=== PATIENT | female | born 1965 | race Caucasian/White ===

== ENCOUNTER 2017-01-07 09:43 | Inpatient (IN) | payer OTHER ==
[~2017-01-07] VITALS: Ht 172.7 cm; Wt 72.6 kg
[~2017-01-07 09:43] MED LIST: AUGMENTIN 875 M1 TAB PO; CARBAMAZEPINE200 M5 PO; DIVALPROEX SOD500 M3 PO; GABAPENTIN100 MG PO; PERCOCET 325 MG1 TA2 PO; Progesterone PO; TEGRETOL XR200 M1 PO
[2017-01-07 10:22] LABS: ABSOLUTE BASOPHIL COUNT 0 /CUMM (0.0-0.2); ABSOLUTE EOSINOPHIL COUNT 0 /CUMM (0.0-0.7); ABSOLUTE GRANULOCYTE CT 3.3 /CUMM (1.4-6.5); ABSOLUTE LYMPH COUNT 3.2 /CUMM (1.2-3.4); ABSOLUTE MONOCYTE COUNT 0.9 /CUMM (0.10-0.60); BASOPHIL % 0.6 % (0.0-2.0); EOSINOPHIL % 0 % (0-5); GRANULOCYTE % 44.2 % (42.2-75.2); MEAN CORPUSCULAR HGB 32.4 PG (27.0-31.0); MEAN CORPUSCULAR HGB CONC 33.5 G/DL (33.0-37.0); MEAN CORPUSCULAR VOLUME 96.5 FL (81.0-99.0); MEAN PLATELET VOLUME 7.2 FL (7.4-10.4); PLATELET COUNT 224 /CUMM (130-400); RBC DISTRIBUTION WIDTH 13.4 % (11.5-14.5); RED BLOOD CELL CT 4.56 /CUMM (4.20-5.40); WHITE BLOOD CELL COUNT 7.5 /CUMM (4.8-10.8)
--- NOTE | 2017-01-07 11:01 | RADIOLOGY REPORT ---
EXAMINATION: XR CHEST CLINICAL INFORMATION: Cough COMPARISON: None TECHNIQUE: 2 views of the chest were obtained. FINDINGS: The lungs are clear with no focal consolidation. No evidence of pneumothorax, pulmonary edema, or pleural effusions. The cardiomediastinal silhouette is unremarkable. No acute osseous findings. IMPRESSION: No acute cardiopulmonary findings.
--- NOTE | 2017-01-07 11:13 | ED AMS/SEIZURE/WEAK/DIZZY ---
History of Present Illness General Chief Complaint: Nausea, Vomiting, Diarrhea Stated Complaint: WEAKNESS/VOMITING Source: patient, family, old records Exam Limitations: no limitations Vital Signs & Intake/Output Vital Signs & Intake/Output Vital Signs Date Time Temp Pulse Resp B/P Pulse O2 O2 Flow FiO2 Ox Delivery Rate 01/07 1752 96.7 72 20 111/73 98 Room Air 01/07 1330 145/73 01/07 1012 97.6 100 18 113/83 96 Room Air Allergies Coded Allergies: amoxicillin (Intermediate, GI DISTRESS 01/07/17) Triage Note: 51 YEAR OLD FEMALE HISTORY OF EPILEPSY STATES THAT SHE HAS BEEN SICK FOR THE PAST WEEK, COMPLAINS OF ACHEY ALL OVER, COUGH THAT MAKES HER VOMIT, PT VOMITTED BILE AT TRIAGE , ALSO STATES THAT SHE WAS DIAGNOSED WITH UTI LAST WEEK STARTED ON ABT , BUT HAS NOT TAKING IT THE PAST FEW DAYS DUE TO SHE HAS BEEN VOMITTING, DENIES URINARY SYMPTOMS. PT STATES THAT SHE THINKS SHE MIGHT HAVE PNA. AFEBRILE AT THIS TIME Triage Nurses Notes Reviewed? yes Onset: Abrupt Duration: week(s): (1), constant, getting worse Timing: recent history Injury Environment: home Severity: moderate, severe Severity Numbers: 10 No Modifying Factors: none Associated Symptoms: n/v HPI: 51-year-old female history of epilepsy on Depakote presents to emergency room complaining of progressively worsening nausea vomiting and room spinning dizziness that has been present for the past 1 week however worse over the past 1 day associated with generalized malaise lightheadedness and poor appetite. She also is complaining of a nonproductive cough since last night. No shortness of breath chest pain. No history of vertigo in the past. She states in the middle night she got to go the bathroom and fell secondary to her dizziness sustaining laceration to the right side of her head. There was no loss of consciousness. She was able to get up herself. Patient denies any alcohol or drug use. No chest pain palpitations or lightheadedness. She denies any tinnitus or hearing loss no headache at this time.. The dizziness is worse with head movement and better at rest (HORACIO NIX) Reconcile Medications Carbamazepine (Tegretol XR) 200 MG TAB.ER.12H 2 TAB PO DAILY EPILEPSY ( Reported) Carbamazepine (Carbamazepine XR) 200 MG TAB.ER.12H 3 TAB PO QPM EPILEPSY ( Reported) Divalproex Sodium (Divalproex Sodium ER) 500 MG TAB.ER.24H 1 TAB PO BID EPILEPSY (Reported) [Progesterone] 0.5 TAB PO TID UNKNOWN (Reported) (ALLAN KAPLAN,GARY Wang) Past History Travel History Traveled to [place] past 21 day No Medical History Any Pertinent Medical History? 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 No (HORACIO NIX) Review of Systems Review of Systems Constitutional: Reports: see HPI. All Other Systems: Reviewed and Negative Comments Review of systems: See HPI, All other systems negative. Constitutional, no chills no fever, no malaise HEENT: No visual changes no sore throat no congestion Cardiovascular: No chest pain , no palpitation Skin, no rashes, no change in skin Respiratory: No dyspnea no cough no sputum GI: nausea vomiting, no diarrhea, no bloating/constipation : No dysuria No hematuria, no frequency, no discharge Muscle skeletal: No joint pain, no joint swelling, no back pain, no neck pain, Neurologic: No numbness no confusion, headache Psych: No stress Heme/endocrine: No bruising no bleeding Immunology: No lymphadenopathy (HORACIO NIX) Physical Exam Physical Exam General Appearance: well developed/nourished, alert, awake, mild distress Comments: Well-developed well-nourished person in no acute distress HEENT: Normal EENT exam; PERRL, EOMI, no nystagmus. There is a 1 cm laceration noted over the right lateral eyebrow, there is no active bleeding nontender no surrounding ecchymosis or facial swelling no raccoon eyes. moist mucous membranes. Neck: Supple, normal range of motion Back: Nontender, no CVA tenderness. Full range of motion Cardiovascular: Regular rate and rhythms no murmurs rubs Respiratory: Chest nontender.There were no bony deformities, no asymmetry. No respiratory distress. Patient speaking in full complete sentences. Breath sounds clear to auscultation bilaterally: NO W/R/R Abdomen: Soft, nontender nondistended, no appreciable organomegaly. Normal bowel sounds. No rebound/guarding, Extremity: No edema, full range of motion of extremities Neuro: Alert oriented x3, motor sensory normal, cranial nerves II through XII grossly intact. There were no obvious focal neurologic abnormalities. Skin: No appreciable rash on exposed skin, skin is warm and dry. Psych: Mood and affect is normal, memory and judgment is normal. Core Measures ACS in differential dx? No CVA/TIA Diagnosis: No Severe Sepsis Present: No Septic Shock Present: No (SANDRA HENRIQUEZ,HORACIO) Progress Differential Diagnosis: arrythmia, alcohol intoxication, anemia, benign positional vertigo, CVA/stroke, dehydration, drug intoxication, encephalitis, electrolyte imbalance, GI bleed, hypoglycemia, intracranial Hem., intracranial mass/tumor, labrynthitis, pneumonia, seizure disorder, subarachnoid Hem., UTI/ pyelo Plan of Care: Orders Procedure Date/time Status CBC WITHOUT DIFFERENTIAL 01/08 0600 Active BASIC ELECTROLYTES PLUS BUN&CR 01/08 0600 Active Lab Add-on Test 01/07 1913 Active CULTURE,URINE 01/07 1544 Active URINE DRUGS OF ABUSE 01/07 1544 Complete URINE OSMOLALITY 01/07 1544 Complete URINE LYTES, SPOT 01/07 1544 Complete Misc Message 01/07 1500 Active ED Holding Orders 01/07 1500 Active Vital Signs 01/07 1500 Active Pathway - chart 01/07 1459 Active Pathway - chart 01/07 1455 Active House Staff 01/07 1455 Active Patient Data 01/07 1455 Active Code Status 01/07 1455 Active Admit to inpatient 01/07 1421 Active Patient Data 01/07 1337 Active Intake & Output 01/07 1130 Active EKG 01/07 1122 Active Add-on Test (ER Only) 01/07 1114 Active RAPID VIRAL INFLUENZA A 01/07 1023 Complete TEGRETOL LEVEL 01/07 1016 Active PHOSPHORUS 01/07 1016 Active MAGNESIUM 01/07 1016 Active DEPAKOTE LEVEL 01/07 1016 Active URINALYSIS 01/07 1008 Complete COMPREHENSIVE METABOLIC PANEL 01/07 1008 Active CBC WITHOUT DIFFERENTIAL 01/07 1008 Complete PT Evaluate & Treat 01/07 UNK Active Lab Add-on Test 01/07 UNK Active VTE Mechanical Prophylaxis 01/07 UNK Active MISTAKE 01/07 UNK Active Seizure Precautions 01/07 UNK Active Current Medications Sig/Mariano Start time Last Medication Dose Stop Time Status Admin Carbamazepine 400 MG DAILY 01/08 1000 AC (Tegretol XR 200 MG) Carbamazepine 600 MG 01/07 AC (Tegretol XR 200 MG) Divalproex Sodium 500 MG BID 01/07 2200 AC (Depakote ER) Non-Formulary 0 SEE ADMIN CRITERIA 01/07 190 UNVr Medication (NON FORMULARY) Lorazepam 0.25 MG Q4P PRN 01/07 1745 AC (Ativan) Acetaminophen 650 MG Q6P PRN 01/07 1500 AC (Tylenol) Oxycodone/ 1 TAB Q6P PRN 01/07 1500 AC Acetaminophen (Percocet) Oxycodone/ 2 TAB Q6P PRN 01/07 1500 AC Acetaminophen (Percocet) Laboratory Tests 01/07/17 1706: Urinalysis MOD H, Urine Color ORANG H, Urine Clarity CLEAR, Urine pH 5.5, Ur Specific Malone >= 1.030, Urine Protein 30 H, Urine Ketones >=80, Urine Nitrite NEG, Urine Bilirubin POS@ICTO H, Urine Urobilinogen 1.0, Ur Leukocyte Esterase TRACE H, Ur Microscopic SEDIMENT EXAMINED, Urine WBC 3-5 H, Ur Epithelial Cells FEW, Hyaline Casts 10-15 H, Granular Casts 1-3 H, Urine Mucus MANY H, Urine Hemoglobin NEG, Urine Glucose NEG 01/07/17 1706: Urine Opiates Screen 186.00, Methadone Screen < 40, Barbiturate Screen < 60, Ur Phencyclidine Scrn < 6.00, Amphetamines Screen < 100, U Benzodiazepines Scrn 120 , Urine Cocaine Screen < 50, Urine Cannabis Screen < 5.00, Urine Osmolality 916, Ur Random Creatinine 135.9, Ur Random Sodium 141 H, Ur Random Potassium 58.8, Fraction Sodium Excret 0.7 01/07/17 1016: Anion Gap 20 H, Estimated GFR > 60, BUN/Creatinine Ratio 17.8, Glucose 101 H, Calcium 9.5, Phosphorus Pending, Magnesium Pending, Total Bilirubin 0.9, AST 28, ALT 28, Alkaline Phosphatase 51, Total Protein 8.1, Albumin 4.8, Globulin 3.3, Albumin/Globulin Ratio 1.5, CBC w Diff NO MAN DIFF REQ, RBC 4.56, MCV 96.5, MCH 32.4 H, RDW 13.4, MPV 7.2 L, Gran % 44.2, Lymphocytes % 42.8, Monocytes % 12.4 H, Eosinophils % 0, Basophils % 0.6, Absolute Granulocytes 3.3, Absolute Lymphocytes 3.2, Absolute Monocytes 0.9 H, Absolute Eosinophils 0, Absolute Basophils 0, PUBS MCHC 33.5, Valproic Acid 99.8, Carbamazepine 11.8 Microbiology 01/07 1544 URINE ROUT: Urine Culture - ORD 01/07 1027 NASOPHARYN: Influenza Virus A & B Rapid Smear - COMP Labs ordered old records reviewed CAT scan x-rays ordered from triage, valium 2mg iv, zofran 8mg iv ordere dpt actively vomiting The wound was anesthetized with lidocaine 1% sutures 3 administered by me. I discussed with patient and her family at length all of her lab results CAT scan and x-ray findings.. Patient stating dizziness is still present nausea slightly improved case d/w dr gutierrez agrees iwth plan case d/w dr wright will admit (SANDRA HENRIQUEZ,HORACIO) Diagnostic Imaging: Viewed by Me: Radiology Read, CT Scan. Discussed w/RAD: Radiology Read, CT Scan. Radiology Impression: PATIENT: MAYRA PRADHAN PRESENT AGE: 51 PATIENT ACCOUNT NO: [id number] : 63 LOCATION: [facility] ORDERING PHYSICIAN: HORACIO HENRIQUEZ SERVICE DATE: 01/07/17 EXAM TYPE: RAD - XRY- HAND, RIGHT EXAMINATION: XR HAND, RIGHT CLINICAL INFORMATION: Pain after fall. Evaluate for fracture. COMPARISON: None TECHNIQUE: Right hand, 3 views. FINDINGS : Bones, joints and soft tissues of the hand and wrist are unremarkable. No acute fracture, subluxation or focal soft tissue swelling. Patient's pain is indicated to be over the region of the thumb metacarpal. There is no evidence of metacarpal fracture. IMPRESSION: No acute findings within the right hand or wrist. DICTATED BY: LOIDA RICHARDS MD DATE/TIME DICTATED:01/07/171145 BEAD FORMING MACHINE SET UP OPERATOR:ANILA DATE/TIME TRANSCRIBED:01/07/171145 CONFIDENTIAL, DO NOT COPY WITHOUT APPROPRIATE AUTHORIZATION. <Electronically signed in Other Vendor System> SIGNED BY: LOIDA RICHARDS MD 01/07/17 1151, PATIENT: MAYRA PRADHAN PRESENT AGE: 51 PATIENT ACCOUNT NO: [id number] : 63 LOCATION: [facility] ORDERING PHYSICIAN: GARY HUERTAS DO SERVICE DATE: 01/07/17 EXAM TYPE: CAT - CT HEAD WO IV CONTRAST EXAMINATION: CT HEAD WITHOUT CONTRAST CLINICAL INFORMATION: Head head, dizzy COMPARISON: None TECHNIQUE: Contiguous axial imaging was performed from the skull base to vertex without intravenous administration of contrast. DLP: 529.16 mGy-cm FINDINGS: There is no evidence of acute intracranial hemorrhage or territorial infarction. No abnormal mass effect or midline shift is seen. Boyce to white matter differentiation is well preserved. No extra-axial fluid collections are identified. The ventricles are normal in size. There is no abnormal attenuation within the brain parenchyma. The osseous structures and soft tissues are normal. There is a fluid level in the visualized right maxillary sinus. Remaining visualized paranasal sinuses are well aerated. The mastoid air cells are well- aerated. IMPRESSION: No acute intracranial pathology. DICTATED BY: ANYAN MARLEY MD DATE/TIME DICTATED:01/07/171105 BEAD FORMING MACHINE SET UP OPERATOR:SHINE DATE/TIME TRANSCRIBED:01/07/171105 CONFIDENTIAL, DO NOT COPY WITHOUT APPROPRIATE AUTHORIZATION. <Electronically signed in Other Vendor System> SIGNED BY: NAYAN MARLEY MD 01/07/17 1115, PATIENT: MAYRA PRADHAN PRESENT AGE: 51 PATIENT ACCOUNT NO: [id number] : 63 LOCATION: [facility] ORDERING PHYSICIAN: GARY HUERTAS DO SERVICE DATE: 01/07/17 EXAM TYPE: RAD - XRY-CHEST XRAY, PA AND LATERAL EXAMINATION: XR CHEST CLINICAL INFORMATION: Cough COMPARISON: None TECHNIQUE: 2 views of the chest were obtained. FINDINGS: The lungs are clear with no focal consolidation. No evidence of pneumothorax, pulmonary edema, or pleural effusions. The cardiomediastinal silhouette is unremarkable. No acute osseous findings. IMPRESSION: No acute cardiopulmonary findings. DICTATED BY: NAYAN MARLEY MD DATE/TIME DICTATED:1053 BEAD FORMING MACHINE SET UP OPERATOR:RAD.SHINE DATE/TIME TRANSCRIBED:02/23/17 / 1054 CONFIDENTIAL, DO NOT COPY WITHOUT APPROPRIATE AUTHORIZATION. <Electronically signed in Other Vendor System> SIGNED BY: NAYAN MARLEY MD 01/07/17 1101 Initial ED EKG: NSR AT 80, NORMAL AXIS, NO ACUTE ST SEG CHANGES Rhythm Strip: normal sinus rhythm (HORACIO NIX) Comments: After discussion with case management patient has been admitted to observation. (ALLAN KAPLAN,GARY Wang) Departure Departure Time of Disposition: 1336 Disposition: STILL A PATIENT Condition: Stable Clinical Impression Primary Impression: Vertigo Secondary Impressions: Minor head injury without loss of consciousness, Nausea & vomiting, Scalp laceration Referrals: FELICIA KAPLAN,JANKI Morrow (PCP/Family) Departure Forms: Customer Survey General Discharge Information Admission Note Spoke With: MELCHOR WRIGHT M.D Documentation of Exam: Documentation of any treatments & extenuating circumstances including Concerns Regarding Discharge (functional status, medication knowledge or non-compliance, living conditions, etc.) that warrant an admission rather than observation: Patient has received multiple doses of nausea medications, IV benzos for improvement of dizziness nausea vomiting with only minimal improvement. Premature discharge medically harmful given she has fallen already sustained head injury she is a fall risk at home secondary to her symptoms premature discharge would BE medically harmful. (HORACIO NIX) PA/STRIPPING SHOVEL OPERATOR Co-Sign Statement Statement: ED Attending supervision documentation- [X] I saw and evaluated the patient. I have also reviewed all the pertinent lab results and diagnostic results. I agree with the findings and the plan of care as documented in the PA's/STRIPPING SHOVEL OPERATOR's documentation. [] I have reviewed the ED Record and agree with the PA's/STRIPPING SHOVEL OPERATOR's documentation. [] Additions or exceptions (if any) to the PAs/STRIPPING SHOVEL OPERATOR's note and plan are summarized below: [] (ALLAN KAPLAN,GARY Wang) Procedures Laceration/Wound Repair Laceration/Wound Repair: Wound Location: face Wound's Depth, Shape: linear, superficial Wound Length (cm): 1.5 Wound Explored: clean, no foreign body removed, irrigated extensively Irrigated w/ Saline (ccs): 200 Betadine Prep? Yes Anesthesia: 1% lidocaine Volume Anesthetic (ccs): 5 Wound Repaired With: sutures Suture Size/Type: 4:0 Number of Sutures: 3 Layer Closure? No Sterile Dressing Applied: Yes (HORACIO NIX)
--- NOTE | 2017-01-07 11:51 | RADIOLOGY REPORT ---
EXAMINATION: XR HAND, RIGHT CLINICAL INFORMATION: Pain after fall. Evaluate for fracture. COMPARISON: None TECHNIQUE: Right hand, 3 views. FINDINGS: Bones, joints and soft tissues of the hand and wrist are unremarkable. No acute fracture, subluxation or focal soft tissue swelling. Patient's pain is indicated to be over the region of the thumb metacarpal. There is no evidence of metacarpal fracture. IMPRESSION: No acute findings within the right hand or wrist.
--- NOTE | 2017-01-07 14:38 | History & Physical ---
THALIA KAPLAN,[facility] 01/07/17 1437: General Information and HPI MD Statement: I have seen and personally examined MAYRA HAMLIN and documented this H&P. The patient is a 51 year old F who presented with a patient stated chief complaint of gait imbalance Source of Information: patient Exam Limitations: poor historian History of Present Illness: This a 51-year-old lady with a past medical history of epilepsy (since ) with multiple episodes of seizures every year , last reported episode 2-3 months ago, and currently managed on carbamezipne and depakote, presents with complaints of gait instability and a fall. Patient appears to be a poor historian and had just received diazepam 2 mg injection at the ED prior to the interview. Patient reports that her coworkers noticed starting 2 weeks ago that something was wrong with her walk, she describes her gait imbalance/stability as like the one of a drunkard. She reports that her gait instability symptoms have been persistent for 2 weeks and reports that last night while attempting to walk to her bathroom after getting up from her bed, she experienced a fall. Patient reports hitting her face on the ground, but denied any loss of consciousness. She states that her sister heard the thud and went over and helped her. She denied any neurological deficit including facial drooping, speech impairment, she denied any postictal confusion, any tremors, urinary or bowel incontinence, tongue biting, palpitations, diaphoresis, or shortness of breath. Regarding complaints of gait instability she denies any vertigo, or tinnitus,. Patient sustained a laceration above her right eye which required sutures at the ED today. Of note, she reports having an episode of UTI last week which was evaluated by her PCP and was prescribed Bactrim but never finished the full course. Also she endorses symptoms of nausea and vomiting. 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 Allergies/Medications Allergies: Coded Allergies: amoxicillin (Intermediate, GI DISTRESS 01/07/17) Home Med list Carbamazapine (Carbatrol) 200 MG CPMP.12HR 2 TAB PO BID Seizures Carbamazepine (Tegretol XR) 200 MG TAB.ER.12H 2 TAB PO DAILY EPILEPSY ( Reported) Carbamazepine (Carbamazepine XR) 200 MG TAB.ER.12H 3 TAB PO QPM EPILEPSY ( Reported) Divalproex Sodium (Divalproex Sodium ER) 500 MG TAB.ER.24H 1 TAB PO BID EPILEPSY (Reported) Divalproex Sodium (Depakote ER) 250 MG TAB.ER.24H 1 TAB PO 1000 Seizures Divalproex Sodium 500 MG TABLET.DR 1 TAB PO 2200 Seizure [Progesterone] 0.5 TAB PO TID UNKNOWN (Reported) Past History Travel History Traveled to [place] past 21 day No Medical History Neurological: EPILEPSY EENT: NONE Cardiovascular: NONE Respiratory: NONE Gastrointestinal: NONE Hepatic: NONE Renal: NONE Musculoskeletal: NONE Psychiatric: NONE Endocrine: NONE Blood Disorders: NONE Cancer(s): NONE 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 EENTM: Denies: blurred vision, double vision. Cardiovascular: Denies: chest pain, edema, orthopena, palpitations. Respiratory: Denies: cough, short of breath, wheezing. GI: Reports: nausea, vomiting. Denies: constipation, diarrhea, distention. Genitourinary: Denies: hesitation, pain, urgency. Musculoskeletal: Denies: joint pain, joint swelling, muscle pain, muscle stiffness. Skin: Reports: no symptoms. Neurological/Psychological: Reports: ataxia. Denies: cognitive dysfunction, confusion, depressed. Hematologic/Endocrine: Reports: no symptoms. Immunologic/Allergic: Reports: no symptoms. Exam & Diagnostic Data Last 24 Hrs of Vital Signs/I&O Vital Signs Date Time Temp Pulse Resp B/P Pulse O2 O2 Flow FiO2 Ox Delivery Rate 01/07 2120 98.4 68 20 130/68 96 Room Air 01/07 2007 97.6 85 18 137/63 98 01/07 1752 96.7 72 20 111/73 98 Room Air 01/07 1330 145/73 01/07 1012 97.6 100 18 113/83 96 Room Air Intake & Output 01/08 0800 01/08 0000 01/07 1600 Intake Total 480 1000 Output Total 400 Balance 80 1000 Intake, IV 1000 Intake, Oral 480 Output, Urine 400 Patient 72.575 kg 72.575 kg Weight Physical Exam General Appearance Alert, Oriented X3, Cooperative Skin No Significant Lesion, closed laceration on right eye noted with sutures prominent HEENT Mucous Membr. moist/pink, traumatic head Neck Supple, No JVD, No thryomegaly Lymphatic Cervical nl Cardiovascular Regular Rate, Normal S1, Normal S2 Lungs Clear to Auscultation, Normal Air Movement Abdomen Normal Bowel Sounds, Soft, No Tenderness Neurological Normal Speech, Strength at 5/5 X4 Ext, Normal Tone, Sensation Intact, Cranial Nerves 3-12 NL, Reflexes 2+, not able to assess gait patient did not feel comfortable to stand up and ambulate Extremities No Edema, Normal Pulses, No Tenderness/Swelling Vascular Normal Pulses, Pulses Symmetrical Assessment/Plan Assessment: This is a 1-year-old lady with a prominent history of epilepsy and on carbamazepine and Depakote presents with complaints of gait imbalance, nausea/ vomiting, recent UTI, for evaluation of gait instability. Impression * Gait imbalance. Patient does not endorse any history of alcohol use, [place] any vestibular symptoms of vertigo or tinnitus. The possible side effects of carbamazepine is gait imbalance. It is currently taking 1000 mg daily in divided doses. It is possible that patient isn't patient is secondary to this medication. * History of Epilepsy. She reports an extensive history of seizures since age. Thus reported seizure episode was about 2-3 months ago, with a recent EEG unremarkable. * Hyponatremia. Was likely secondary romie hyponatremia from episodes of vomiting. However obtain urine lites to determine the true etiology, Plan * We'll decrease epilepsy medications per patient neurologist recommendation. We'll therefore reduce temazepam from 1000 mg daily in divided dose to 500 mg daily in divided dose. Decrease Depakote from 500 mg twice a day to 250 mg twice a day, will recheck medication levels in a couple days. * Zofran 4 mg every 4-6 hours as needed for nausea and vomiting * Will continue progesterone compound 0.5 mg 3 times a day * Lovenox DVT prophylaxis As Ranked By This Provider Problem List: 1. Minor head injury without loss of consciousness 2. Nausea & vomiting 3. Gait abnormality Core Measures/Miscellaneous Acute Coronary Syndrome ACS Diagnosis: No Cerebrovascular Accident CVA/TIA Diagnosis: No Congestive Heart Failure CHF Diagnosis: No Venous Thromboembolism VTE Risk Factors: Acute medical illness, Age > 40 VTE Prophylaxis Ordered Inpt: Pharm- Lovenox No Mech VTE prophylaxis d/t: VTE low risk, No contraindications No VTE Pharm Prophylaxis d/t: VTE low risk, No contraindications VTE Diagnosis: No VTE Type: NONE VTE Confirmed by (Test): NONE Severe Sepsis Severe Sepsis Present: No Septic Shock Septic Shock Present: No Miscellaneous Documentation Attending Case Discussed With: MICHAELA RAMSEY MD Primary Care Physician: JANKI DUARTE MD Patient sees these Specialists neurologist Level of Patient Care: General Surgical FAZAL KAPLANROBERTO CARLOS 01/07/17 1551: Attending MD Review Statement Attending Statement Attending MD Statement: examined this patient, discuss w/resident/PA/FIELD RECORDER, agreed w/resident/PA/FIELD RECORDER, reviewed EMR data (avail), discussed with nursing, discussed with case mgmt, reviewed images, amended to note Attending Assessment/Plan: 51-year-old female with past medical history significant for seizure disorder on antiepileptics who presented with complaint soft fall, feeling dizzy and having some GI upset. 1-2 weeks ago she was treated for UTI with an antibiotic which she does not remember whether it was Bactrim or Augmentin. Since she started the antibiotic, she has been feeling nauseous. She also had vomited. This morning she got up to go to the bathroom and felt dizzy and fell. She also has history of seizure but said that her seizure is under well control. Her last seizure episode was 2 months ago according to the patient. She currently denies any urinary complaints. In the emergency room all of her imaging studies were negative but she was found to have low sodium as well as low chloride. Her vital signs are stable but her orthostatic vital signs are not checked. She was given diazepam for the CT therefore she was feeling somewhat loopy. Patient denies any chest pain, vertigo, tinnitus or any palpitations. She sustained a laceration above the right eyebrow on the forehead which was sutured. She does complain of some headache. Vital Signs Date Time Temp Pulse Resp B/P Pulse O2 O2 Flow FiO2 Ox Delivery Rate 01/07 1330 145/73 01/07 1012 97.6 100 18 113/83 96 Room Air on exam; somewhat drowsy but arousable. heent; mucous membranes dry. cv; s1,s2, rrr resp; clear. abd; soft, nt, bs+ ext; no edema. neuro; non focal. Laboratory Tests 01/07 1016 Chemistry Sodium (137 - 145 mmol/L) 133 L Potassium (3.5 - 5.1 mmol/L) 4.1 Chloride (98 - 107 mmol/L) 91 L Carbon Dioxide (22 - 30 mmol/L) 21 L Anion Gap (5 - 16) 20 H BUN (7 - 17 mg/dL) 16 Creatinine (0.5 - 1.0 mg/dL) 0.9 Estimated GFR (>60 ml/min) > 60 BUN/Creatinine Ratio (7 - 25 %) 17.8 Glucose (65 - 99 mg/dL) 101 H Calcium (8.4 - 10.2 mg/dL) 9.5 Total Bilirubin (0.2 - 1.3 mg/dL) 0.9 AST (14 - 36 U/L) 28 ALT (9 - 52 U/L) 28 Alkaline Phosphatase (<127 U/L) 51 Total Protein (6.3 - 8.2 g/dL) 8.1 Albumin (3.5 - 5.0 g/dL) 4.8 Globulin (1.9 - 4.2 gm/dL) 3.3 Albumin/Globulin Ratio (1.1 - 2.2 %) 1.5 Hematology CBC w Diff NO MAN DIFF REQ WBC (4.8 - 10.8 /CUMM) 7.5 RBC (4.20 - 5.40 /CUMM) 4.56 Hgb (12.0 - 16.0 G/DL) 14.8 Hct (37 - 47 %) 44.0 MCV (81.0 - 99.0 FL) 96.5 MCH (27.0 - 31.0 PG) 32.4 H RDW (11.5 - 14.5 %) 13.4 Plt Count (130 - 400 /CUMM) 224 MPV (7.4 - 10.4 FL) 7.2 L Gran % (42.2 - 75.2 %) 44.2 Lymphocytes % (20.5 - 51.1 %) 42.8 Monocytes % (1.7 - 9.3 %) 12.4 H Eosinophils % (0 - 5 %) 0 Basophils % (0.0 - 2.0 %) 0.6 Absolute Granulocytes (1.4 - 6.5 /CUMM) 3.3 Absolute Lymphocytes (1.2 - 3.4 /CUMM) 3.2 Absolute Monocytes (0.10 - 0.60 /CUMM) 0.9 H Absolute Eosinophils (0.0 - 0.7 /CUMM) 0 Absolute Basophils (0.0 - 0.2 /CUMM) 0 PUBS MCHC (33.0 - 37.0 G/DL) 33.5 Toxicology Valproic Acid (50 - 120 ug/mL) 99.8 Alll imging reviewed. EKG>>> NSr, no acute ST T changes. A/P; 51-year-old female with past medical history significant for seizure disorder on antiepileptics who is admitted with a fall, dizziness, dehydration. Question if the patient had an episode of seizure. Valproic acid level is therapeutic. We will continue the patient on her antiepileptics and keep her on seizure precautions. Will put her on a low-dose Ativan when necessary. If she has another seizure, she will need an EEG as well as a neurology consult. Please check orthostatic vital signs for the patient. Please check urinalysis. Please check urine osmolality, urine electrolytes as well as serum osmolality. Clinically she looks dehydrated. Please hydrate with IV fluids and as I mentioned check orthostatics. She denies having any diarrhea but if she does have any episodes of diarrhea that she will need a stool for C. difficile as well as stool cultures. Check urinalysis to see if there is any evidence of infection. She needs a PT evaluation. DVT prophylaxis: Lovenox. She is a full code for now until she discusses further with her sister. SAFIA GILL 01/07/17 1852: Resident Review Statement Resident Statement: examined this patient, discussed with business intern, agreed with business intern, reviewed EMR data (avail), discussed with nursing, reviewed images Other Findings: Ms Hamlin is a 51-year-old lady with a PMH of seizure disorder since who presents with complaints of gait instability, dizziness, episodes and recent UTI. Currently the patient appears to be unreliable with providing history. She does report difficulty with walking over the past 1-2 weeks what she describes as imbalance and associated dizziness. She also complains of intermittent episodes of coughing with subsequent nonbloody vomitus. She indicates a recent episode of urinary tract infection for which she was treated with antibiotics. She did suffer a fall last night resulting in a laceration to the right forehead. Pt reports that dizziness that may have contributed to the symptoms. Her last EEG was on 03/19/2016 was normal (Dr Bass). On arrival in the ED she has multiple episodes of vomiting requiring zofran and valium to control. 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 ROS: she endorses a sensation of head shaking that coincides with her dizziness. VS on admission: BP 113/83, HR 100, RR 18, SPO2 96% on RA, T 97.6 Physical exam: Alert and oriented. Sitting in bed with eyes closed, intermittent spontaneous rhythmic shaking of her head. No evidence of photophobia. Mucous membranes moist. RRR, normal S1/S2. Lungs CTA BL. Normal bowel sounds. No focal neurologic deficits. Pertinent labs: WBC 7.5, H&H 14.8/44.0, sodium 133, chloride 91, bicarbonate 21, BUN/CR 16/0.9, glucose 101 Valproic acid level: 99.8 CXR: No acute cardio pulmonary findings. Head CT: No acute intracranial pathology Hand x-ray: No acute findings Urinalysis: 30 protein, trace leukocyte esterase, 3-5 WBCs EKG: Normal sinus rhythm, HR 81, probable anteroseptal infarct (old). QTC 457 Problem list: 1. Dizziness, gait instability 2. History of seizure disorder 3. Hyponatremia 4. Hypochloremia Plan: * Will admit the patient to general medicine * Hyponatremia: 133. Records from PCP indicate a sodium of 140 on 12/30/2016. At this time less likely to be a factor in her presentation. We'll follow-up urine and serum lites * Dizziness/gait instability: Unclear etiology at this time. DDX include reaction to carbamazepine which can be associated with dizziness, unsteadiness, nausea, vomiting, speech disturbance, muscle twitching, tremors and hyponatremia. Records indicate that she has been on this medication since March [address] Jose Bar. We will obtain neurology consult, discuss options for EEG/medication adjustment recommendations * Had a chance to speak with the patient's neurologist Dr. Jose Bar . In the setting of her current valproic level 99.8, carbamazepine level of 11.8, he recommends dose decrease, rechecking the levels and following up with neuro in the morning * Medication adjustments: Carbamazepine 200 mg in a.m., 300 mg in p.m. (half home dose). Depakote: 250 mg BID (half home dose). Will follow up with neurologist director internal communications for further recommendations * Progesterone compound 0.5 mg TID continued * Hypochloremia 91: Last level was 103 seven days ago. This may be secondary to loss of chloride IMs the setting of persistent vomiting. Patient also has low bicarbonate level that could be attributed to a compensatory effect in the setting of recurrent vomiting. We'll follow-up in the a.m. * Zofran for nausea. Repeat EKG to assess for QT prolongation * DVT prophylaxis: Lovenox * Diet: Regular * Orthostatics in the a.m. * CODE STATUS: Full code
[2017-01-07 21:20] VITALS: BP 130/68
[2017-01-08 06:51] VITALS: BP 126/74
[2017-01-08 07:57] LABS: ABSOLUTE BASOPHIL COUNT 0 /CUMM (0.0-0.2); ABSOLUTE EOSINOPHIL COUNT 0 /CUMM (0.0-0.7); ABSOLUTE GRANULOCYTE CT 2.1 /CUMM (1.4-6.5); ABSOLUTE LYMPH COUNT 3.1 /CUMM (1.2-3.4); ABSOLUTE MONOCYTE COUNT 0.6 /CUMM (0.10-0.60); BASOPHIL % 0.5 % (0.0-2.0); EOSINOPHIL % 0.1 % (0-5); GRANULOCYTE % 35.6 % (42.2-75.2); MEAN CORPUSCULAR HGB 32.7 PG (27.0-31.0); MEAN CORPUSCULAR VOLUME 96.2 FL (81.0-99.0); MEAN PLATELET VOLUME 7.9 FL (7.4-10.4); PLATELET COUNT 187 /CUMM (130-400); RBC DISTRIBUTION WIDTH 14.1 % (11.5-14.5); RED BLOOD CELL CT 3.81 /CUMM (4.20-5.40); WHITE BLOOD CELL COUNT 5.9 /CUMM (4.8-10.8)
[2017-01-08 08:19] LABS: HEMATOCRIT 36.6 % (37-47)
[2017-01-08 14:16] VITALS: BP 130/70
[2017-01-08 14:17] VITALS: BP 130/70
--- NOTE | 2017-01-08 15:07 | Cons- Neurology ---
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 This culminated in a fall with head injury and laceration requiring closure. She has been on stable doses of carbamazepine 400 MG a.m. +600 MG p.m. and valproic acid 500 MG twice daily. Levels on presentation were 11.8 And 99.8 Respectively. Medication toxicity was suspected, doses were reduced by half and today she is feeling much better although not yet back to baseline. Levels are now 8.3 and 87.3 respectively. 2 weeks ago she was started on Bactrim for a urinary tract infection. There have been no other new illnesses and no change in medication compliance. Her baseline levels for AEDs were not known to her own neurologist who was not in the office when contacted. Seizures were described by her sister. The patient has a strange premonition with nausea then "goes blank" Sister describes repetitive spitting movements and restless movement of one hand. Generally no falls, no reported generalized convulsions. Most recent was about 4 months ago. Tremor has been present for many years. No family history except some tremor in her father when he developed Parkinson's. 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 Allergies/Medications Allergies: Coded Allergies: amoxicillin (Intermediate, GI DISTRESS 01/07/17) Home Med List: Carbamazepine (Tegretol XR) 200 MG TAB.ER.12H 2 TAB PO DAILY EPILEPSY ( Reported) Carbamazepine (Carbamazepine XR) 200 MG TAB.ER.12H 3 TAB PO QPM EPILEPSY ( Reported) Divalproex Sodium (Divalproex Sodium ER) 500 MG TAB.ER.24H 1 TAB PO BID EPILEPSY (Reported) [Progesterone] 0.5 TAB PO TID UNKNOWN (Reported) Current Medications: Current Medications Sig/Mariano Start time Last Medication Dose Route Stop Time Status Admin Acetaminophen 650 MG Q6P PRN 01/07 1500 AC PO Carbamazepine 400 MG Q12 01/08 2200 AC PO Carbamazepine 400 MG 2200 01/08 2200 CAN PO Carbamazepine 400 MG DAILY 01/08 1000 DC PO Carbamazepine 200 MG DAILY 01/08 1000 DC 01/08 PO 0958 Carbamazepine 600 MG 01/07 DC PO Carbamazepine 300 MG 01/07 DC PO Carbamazepine 300 MG 01/07 DC 01/07 PO 2236 Divalproex Sodium 250 MG DAILY 01/09 1000 AC PO Divalproex Sodium 500 MG 01/08 2200 AC PO Divalproex Sodium 500 MG BID 01/07 2200 DC PO Divalproex Sodium 250 MG BID 01/07 220 DC 01/08 PO 0957 Enoxaparin Sodium 0 .STK-MED ONE 01/07 2014 DC SC Enoxaparin Sodium 40 MG DAILY 01/07 1945 AC 01/08 SC 0957 Lorazepam 0.25 MG Q4P PRN 01/07 1745 AC IV Oxycodone/ 1 TAB Q6P PRN 01/07 1500 AC Acetaminophen PO Oxycodone/ 2 TAB Q6P PRN 01/07 1500 AC Acetaminophen PO Patient Medication 1 ED .STK-MED ONE 01/08 1354 DC Teaching ED 01/08 1355 Patient Own 1 UNIT DAILY 01/08 1000 AC 01/08 Medication PO 0958 Potassium Chloride 40 MEQ ONCE ONE 01/08 0915 DC 01/08 PO 01/08 0916 0957 Review of Systems Review of Systems: ROS: The patient had no constitutional complaints. Vision clear, no diplopia ENT: No vertigo or tinnitus or hearing loss Cardiac: |Chest pain and palpitations denied Respiratory: No dyspnea or wheezing GI: No abdominal pain nausea or diarrhea. 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 Home Services at Home: None Smoking Status: Never Smoked ETOH Use: denies use Illicit Drug Use: denies illicit drug use Exam & Diagnostic Data Vital Signs and I&O Vital Signs Date Time Temp Pulse Resp B/P Pulse O2 O2 Flow FiO2 Ox Delivery Rate 01/08 1417 98.3 80 20 130/70 95 Room Air 01/08 1416 80 130/70 01/08 0651 99.1 76 20 126/74 96 Room Air 01/07 2120 98.4 68 20 130/68 96 Room Air 01/07 2007 97.6 85 18 137/63 98 01/07 1752 96.7 72 20 111/73 98 Room Air Intake & Output 01/08 1600 01/08 0800 01/08 0000 Intake Total 800 0 480 Output Total 400 Balance 800 0 80 Intake, IV 0 0 Intake, Oral 800 0 480 Number 0 Bowel Movements Output, Urine 400 Patient 160 lb 160 lb Weight Physical Exam: On exam the patient appeared generally well and in no distress. There is a constant rapid and fairly regular tremor affecting both hands both at rest, on position and with movement and affecting the head. No cardiac murmur. No peripheral edema Mental status: Alert, attentive, oriented to name [facility] and year but uncertain if December or January. no language errors, recall and general fund of knowledge seem intact Funduscopic unremarkable Visual lynch full , Eye movements full without nystagmus, pupils midsize equal round and reactive to light. Facial movement normal bilaterally Facial sensation normal bilaterally Hearing intact bilaterally Uvula elevates midline Tongue protrusion is midline Shoulder shrug symmetric Motor power and tone normal in all 4 extremities Sensation intact to primary modes Tendon reflexes normal and symmetric without pathologic signs Coordination no ataxia Gait unsteady and somewhat wide-based. Romberg test however normal. Last 48 Hours of Lab Results: Laboratory Tests 01/08 01/08 0859 0615 Chemistry Sodium (137 - 145 mmol/L) 133 L Potassium (3.5 - 5.1 mmol/L) 3.7 Chloride (98 - 107 mmol/L) 97 L Carbon Dioxide (22 - 30 mmol/L) 26 Anion Gap (5 - 16) 10 BUN (7 - 17 mg/dL) 11 Creatinine (0.5 - 1.0 mg/dL) 0.7 Estimated GFR (>60 ml/min) > 60 BUN/Creatinine Ratio (7 - 25 %) 15.7 Serum Osmolality (285 - 295 MOSM/KG) 275 L Hematology CBC w Diff MAN DIFF ORDERED WBC (4.8 - 10.8 /CUMM) 5.9 RBC (4.20 - 5.40 /CUMM) 3.81 L Hgb (12.0 - 16.0 G/DL) 12.4 Hct (37 - 47 %) 36.6 L MCV (81.0 - 99.0 FL) 96.2 MCH (27.0 - 31.0 PG) 32.7 H RDW (11.5 - 14.5 %) 14.1 Plt Count (130 - 400 /CUMM) 187 MPV (7.4 - 10.4 FL) 7.9 Gran % (42.2 - 75.2 %) 35.6 L Lymphocytes % (20.5 - 51.1 %) 52.9 H Monocytes % (1.7 - 9.3 %) 10.9 H Eosinophils % (0 - 5 %) 0.1 Basophils % (0.0 - 2.0 %) 0.5 Absolute Granulocytes (1.4 - 6.5 /CUMM) 2.1 Segmented Neutrophils (42.2 - 75.2 %) 31 L Band Neutrophils (0.0 - 5.0 %) 2 Absolute Lymphocytes (1.2 - 3.4 /CUMM) 3.1 Lymphocytes (20.5 - 51.1 %) 54 H Monocytes (1.7 - 9.3 %) 13 H Absolute Monocytes (0.10 - 0.60 /CUMM) 0.6 Absolute Eosinophils (0.0 - 0.7 /CUMM) 0 Absolute Basophils (0.0 - 0.2 /CUMM) 0 Platelet Estimate (ADEQUATE) VERIFIED BY SMEAR Normocytic RBCs VERIFIED Normochromic RBCs VERIFIED PUBS MCHC (33.0 - 37.0 G/DL) 34.0 Toxicology Valproic Acid (50 - 120 ug/mL) Cancelled 87.3 Carbamazepine (4.0 - 12.0 ug/mL) 8.3 01/07 01/07 1706 1706 Toxicology Urine Opiates Screen (>2000 NG/ML) 186.00 Methadone Screen (>300 NG/ML) < 40 Barbiturate Screen (>200 NG/ML) < 60 Ur Phencyclidine Scrn (>25 NG/ML) < 6.00 Amphetamines Screen (>1000 NG/ML) < 100 U Benzodiazepines Scrn (>200 NG/ML) 120 Urine Cocaine Screen (>300 NG/ML) < 50 Urine Cannabis Screen (>50 NG/ML) < 5.00 Urines Urinalysis MOD H Urine Color (YEL,AMB,STR) ORANG H Urine Clarity (CLEAR) CLEAR Urine pH (5.0 - 8.0) 5.5 Ur Specific [place] (1.001 - 1.035) >= 1.030 Urine Protein (NEG,<30 MG/DL) 30 H Urine Ketones (NEG) >=80 Urine Nitrite (NEG) NEG Urine Bilirubin (NEG) POS@ICTO H Urine Urobilinogen (0.1 - 1.0 EU/dl) 1.0 Ur Leukocyte Esterase (NEG) TRACE H Ur Microscopic SEDIMENT EXAMINED Urine WBC (0 - 2 /HPF) 3-5 H Ur Epithelial Cells (NONE,FEW) FEW Hyaline Casts (0/LPF) 10-15 H Granular Casts (NONE /LPF) 1-3 H Urine Mucus (FEW,NONE) MANY H Urine Hemoglobin (NEG) NEG Urine Osmolality (300 - 1000 MOSM/KG) 916 Ur Random Creatinine (mg/dL) 135.9 Ur Random Sodium (30 - 90 mmol/L) 141 H Ur Random Potassium (mmol/L) 58.8 Fraction Sodium Excret (<1% %) 0.7 Urine Glucose (N MG/DL) NEG 01/07 1016 Chemistry Sodium (137 - 145 mmol/L) 133 L Potassium (3.5 - 5.1 mmol/L) 4.1 Chloride (98 - 107 mmol/L) 91 L Carbon Dioxide (22 - 30 mmol/L) 21 L Anion Gap (5 - 16) 20 H BUN (7 - 17 mg/dL) 16 Creatinine (0.5 - 1.0 mg/dL) 0.9 Estimated GFR (>60 ml/min) > 60 BUN/Creatinine Ratio (7 - 25 %) 17.8 Glucose (65 - 99 mg/dL) 101 H Serum Osmolality (285 - 295 MOSM/KG) 283 L Calcium (8.4 - 10.2 mg/dL) 9.5 Phosphorus (2.5 - 4.5 mg/dL) 4.4 Magnesium (1.6 - 2.3 mg/dL) 1.9 Total Bilirubin (0.2 - 1.3 mg/dL) 0.9 AST (14 - 36 U/L) 28 ALT (9 - 52 U/L) 28 Alkaline Phosphatase (<127 U/L) 51 Total Protein (6.3 - 8.2 g/dL) 8.1 Albumin (3.5 - 5.0 g/dL) 4.8 Globulin (1.9 - 4.2 gm/dL) 3.3 Albumin/Globulin Ratio (1.1 - 2.2 %) 1.5 Hematology CBC w Diff NO MAN DIFF REQ WBC (4.8 - 10.8 /CUMM) 7.5 RBC (4.20 - 5.40 /CUMM) 4.56 Hgb (12.0 - 16.0 G/DL) 14.8 Hct (37 - 47 %) 44.0 MCV (81.0 - 99.0 FL) 96.5 MCH (27.0 - 31.0 PG) 32.4 H RDW (11.5 - 14.5 %) 13.4 Plt Count (130 - 400 /CUMM) 224 MPV (7.4 - 10.4 FL) 7.2 L Gran % (42.2 - 75.2 %) 44.2 Lymphocytes % (20.5 - 51.1 %) 42.8 Monocytes % (1.7 - 9.3 %) 12.4 H Eosinophils % (0 - 5 %) 0 Basophils % (0.0 - 2.0 %) 0.6 Absolute Granulocytes (1.4 - 6.5 /CUMM) 3.3 Absolute Lymphocytes (1.2 - 3.4 /CUMM) 3.2 Absolute Monocytes (0.10 - 0.60 /CUMM) 0.9 H Absolute Eosinophils (0.0 - 0.7 /CUMM) 0 Absolute Basophils (0.0 - 0.2 /CUMM) 0 PUBS MCHC (33.0 - 37.0 G/DL) 33.5 Toxicology Valproic Acid (50 - 120 ug/mL) 99.8 Carbamazepine (4.0 - 12.0 ug/mL) 11.8 Imaging/Other Studies: CT scan of the head without contrast: There is no evidence of acute intracranial hemorrhage or territorial infarction. No abnormal mass effect or midline shift is seen. Boyce to white matter differentiation is well preserved. No extra-axial fluid collections are identified. The ventricles are normal in size. There is no abnormal attenuation within the brain parenchyma. The osseous structures and soft tissues are normal. There is a fluid level in the visualized right maxillary sinus. Remaining visualized paranasal sinuses are well aerated. The mastoid air cells are well-aerated. IMPRESSION: No acute intracranial pathology. Assessment/Plan Assessment: Medication toxicity. This may have occurred on addition of Bactrim due to alteration in metabolism of her baseline antiepileptic drugs. No other explanation is found. 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 Long-standing. Seizure disorder, complex partial by description, never fully controlled. Recommendations: Increase meds slightly to Tegretol 400 MG twice a day which is 80% of her prior dose and Depakote 750 MG daily which is three quarters of her usual. I think reduction in both meds by half would result in falling levels to wear risk of seizure breakthrough increases. Physical therapy for gait. If stable and improved and be discharged tomorrow for outpatient follow-up She should see Dr. Macias within the next 2 weeks for repeat blood level studies and further dosage adjustment. Consult Acknowledgment - Thank you for your consult request.
--- NOTE | 2017-01-08 15:08 | PN- Housestaff ---
Subjective Follow-up For: Abnormal gait Subjective: Patient seen and examined at bedside today. She appears more alert and gives a more coherent history compared to yesterday. Patient still endorses gait imbalance after undergoing physical therapy. Patient is also reporting slight head tremor which she states she's had them for a while. She does not endorse any acute complaint of facial drooping, seizure-like activities, loss of consciousness, vertigo, tendinitis, fever, chills, chest pain, palpitation, abdominal pain or dysuria. Review of Systems Constitutional: Reports: no symptoms, see HPI. Objective Last 24 Hrs of Vital Signs/I&O Vital Signs Date Time Temp Pulse Resp B/P Pulse O2 O2 Flow FiO2 Ox Delivery Rate 01/08 1417 98.3 80 20 130/70 95 Room Air 01/08 1416 80 130/70 01/08 0651 99.1 76 20 126/74 96 Room Air 01/07 2120 98.4 68 20 130/68 96 Room Air 01/07 2007 97.6 85 18 137/63 98 01/07 1752 96.7 72 20 111/73 98 Room Air Intake & Output 01/08 1600 01/08 0800 01/08 0000 Intake Total 800 0 480 Output Total 400 Balance 800 0 80 Intake, IV 0 0 Intake, Oral 800 0 480 Number 0 Bowel Movements Output, Urine 400 Patient 72.575 kg 72.575 kg Weight Physical Exam General Appearance: Alert, Cooperative, No Acute Distress Current Medications: Current Medications Sig/Mariano Start time Last Medication Dose Route Stop Time Status Admin Acetaminophen 650 MG Q6P PRN 01/07 1500 AC PO Carbamazepine 400 MG Q12 01/08 2200 AC PO Carbamazepine 400 MG 01/08 CAN PO Carbamazepine 400 MG DAILY 01/08 1000 DC PO Carbamazepine 200 MG DAILY 01/08 1000 DC 01/08 PO 0958 Carbamazepine 600 MG 01/07 DC PO Carbamazepine 300 MG 01/07 DC PO Carbamazepine 300 MG 01/07 DC 01/07 PO 2236 Divalproex Sodium 250 MG DAILY 01/09 1000 AC PO Divalproex Sodium 500 MG 01/080 AC PO Divalproex Sodium 500 MG BID 01/07 2200 DC PO Divalproex Sodium 250 MG BID 01/07 2200 DC 01/08 PO 0957 Enoxaparin Sodium 0 .STK-MED ONE 01/07 2014 DC SC Enoxaparin Sodium 40 MG DAILY 01/07 1945 AC 01/08 SC 0957 Lorazepam 0.25 MG Q4P PRN 01/07 1745 AC IV Oxycodone/ 1 TAB Q6P PRN 01/07 1500 AC Acetaminophen PO Oxycodone/ 2 TAB Q6P PRN 01/07 1500 AC Acetaminophen PO Patient Medication 1 ED .STK-MED ONE 01/08 1354 AR Teaching ED 01/08 1355 Patient Own 1 UNIT DAILY 01/08 1000 AC 01/08 Medication PO 0958 Potassium Chloride 40 MEQ ONCE ONE 01/08 0915 DC 01/08 PO 01/08 0916 0957 Sodium Chloride 1,000 MG TID 01/08 1600 AC PO Last 24 Hrs of Lab/Emanuel Results Last 24 Hrs of Labs/Mics: Laboratory Tests 01/08/17 0859: Valproic Acid Cancelled 01/08/17 0615: Anion Gap 10, Estimated GFR > 60, BUN/Creatinine Ratio 15.7, Serum Osmolality 275 L, CBC w Diff MAN DIFF ORDERED, RBC 3.81 L, MCV 96.2, MCH 32.7 H, RDW 14.1, MPV 7.9, Gran % 35.6 L, Lymphocytes % 52.9 H, Monocytes % 10.9 H, Eosinophils % 0.1, Basophils % 0.5, Absolute Granulocytes 2.1, Segmented Neutrophils 31 L, Band Neutrophils 2, Absolute Lymphocytes 3.1, Lymphocytes 54 H, Monocytes 13 H, Absolute Monocytes 0.6, Absolute Eosinophils 0, Absolute Basophils 0, Platelet Estimate VERIFIED BY SMEAR, Normocytic RBCs VERIFIED, Normochromic RBCs VERIFIED, PUBS MCHC 34.0, Valproic Acid 87.3, Carbamazepine 8.3 01/07/176: Urinalysis MOD H, Urine Color ORANG H, Urine Clarity CLEAR, Urine pH 5.5, Ur Specific [place] >= 1.030, Urine Protein 30 H, Urine Ketones >=80, Urine Nitrite NEG, Urine Bilirubin POS@ICTO H, Urine Urobilinogen 1.0, Ur Leukocyte Esterase TRACE H, Ur Microscopic SEDIMENT EXAMINED, Urine WBC 3-5 H, Ur Epithelial Cells FEW, Hyaline Casts 10-15 H, Granular Casts 1-3 H, Urine Mucus MANY H, Urine Hemoglobin NEG, Urine Glucose NEG 01/07/17 1706: Urine Opiates Screen 186.00, Methadone Screen < 40, Barbiturate Screen < 60, Ur Phencyclidine Scrn < 6.00, Amphetamines Screen < 100, U Benzodiazepines Scrn 120 , Urine Cocaine Screen < 50, Urine Cannabis Screen < 5.00, Urine Osmolality 916, Ur Random Creatinine 135.9, Ur Random Sodium 141 H, Ur Random Potassium 58.8, Fraction Sodium Excret 0.7 Microbiology 01/08 0200 URINE ROUT: Urine Culture - RECD 01/07 1544 URINE ROUT: Urine Culture - ORD Assessment/Plan Assessment: This is a 51-year-old lady with a significant medical history of epilepsy since infant years with multiple episodes of seizures every year with last reported one to be around 2-3 months ago and on carbamazepine and Depakote seizure control resents for evaluation of multiple complaints of gait imbalance, nausea, vomiting, and some dizziness. Assessment and plan #Gait imbalance Patient does not have a history of alcohol use,, does not seem to head any episode of seizure within the past few days. However his Tegretol and carbamazepine levels are noted to be in the high normal. It is very possible that his seizure medication levels especially carbamazepine could be responsible for the gait abnormalities. Patient's seizure medications were reduced by half after consultation with outpatient neurologist. We'll continue to await further neurology. Patient orthostatics measurements are suggestive of orthostatic hypotension, however BP values while standing have not been obtained yet. Pt Went through physical therapy session today and was noted to be a 1 assisted with gait imbalance and therefore will most likely require home PT. #SIADH Patient presented with hyponatremia and urine lites are suggestive of SIADH as high osmolarity of urine and elevated urine sodium levels are noted. Clonazepam is one of the most common medication that will cause SIADH. Patient is also endorsing a history of drinking copious amount of fluids and therefore dilutional hyponatremia is contributory. In the setting of hyponatremia which is not resolving with the dose adjustment of carbamazepine and possible positive orthostatics will start patient on sodium tabs 1 g 3 times a day. #Disposition If stable most likely discharge tomorrow. Problem List: 1. Gait abnormality Pain Ratin Pain Location: headache Pain Goal: Remain pain free Pain Plan: pain pathway Tomorrow's Labs & Rationales: bep-HYPONATREMIA and seizure history urine lytes:SIADH
--- NOTE | 2017-01-08 15:15 | Discharge Summary ---
Visit Information Visit Dates Admission Date: 01/08/17 Discharge Date: 01/10/2017 Hospital Course Course Attending Physician: BRAULIO KAPLAN,MICHAELA Ortiz Primary Care Physician: JNAKI DUARTE MD Consulting Request: Consulting Specialty: Neurology Hospital Course: Ms Hamlin is a 51-year-old lady with a PMH of seizure disorder since who presented with complaints of gait instability, dizziness, nausea, vomiting and recent UTI. On initial assessment of the patient she did appear to be quite unreliable with providing history. She endorsed some difficulty with walking over the past 2 weeks which she described as an imbalance with associated dizziness. She also complained of intermittent episodes of cough resulting in nonbloody vomitus. She was diagnosed with a UTI earlier this month for which she was started on Bactrim but only took it for a few days but she thought the antibiotic was causing her symptoms. The day prior to admission she suffered a fall while getting out of bed with resultant laceration to the right for head. She is currently followed by Dr. Jose Bar (neurologist). Her last EEG was on 03/19/2016 which was unremarkable. 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 ROS: she endorses a sensation of head shaking that coincides with her dizziness. VS on admission: BP 113/83, HR 100, RR 18, SPO2 96% on RA, T 97.6 Physical exam: Alert and oriented. Sitting in bed with eyes closed, intermittent spontaneous rhythmic shaking of her head. No evidence of photophobia. Mucous membranes moist. RRR, normal S1/S2. Lungs CTA BL. Normal bowel sounds. No focal neurologic deficits. Pertinent labs: WBC 7.5, H&H 14.8/44.0, sodium 133, chloride 91, bicarbonate 21, BUN/CR 16/0.9, glucose 101 Valproic acid level: 99.8 CXR: No acute cardio pulmonary findings. Head CT: No acute intracranial pathology Hand x-ray: No acute findings Urinalysis: 30 protein, trace leukocyte esterase, 3-5 WBCs EKG: Normal sinus rhythm, HR 81, probable anteroseptal infarct (old). QTC 457 We admitted the patient to general medicine for management of the following problems: 1. Dizziness, gait instability: Likely secondary to medication side effects 2. History of seizure disorder 3. SIADH 4. Orthostatic hypotension Hospital course: 1. Dizziness, gait instability: Likely secondary to medication side effects * On arrival in the ED the patient had multiple episodes of nonbloody vomitus which were managed with Zofran and Valium. * Carbamazepine level 11.8, valproic acid 99.8 which were at the upper end of of normal. We initially decreased her carbamazepine and Depakote doses to half her regular home dose regimen and followed up levels in the a.m. * Carbamazepine level 8.3, valproic acid level 87.3 the following morning * After discussion with our neurologist Dr. Alegria along with her outpatient neurologist Dr. Jose Bar, we made the following medication adjustments: Carbamazepine 800 mg BID, Depakote: 250 mg in the a.m., 500 mg in the p.m. * Patient instructed to follow-up with PCP to have labs drawn early next week 2. History of seizure disorder * Throughout the hospital course there was no reported seizure * We will plan to discharge the patient on Depakote ER 250 mg in the a.m., 500 mg in the p.m., carbamazepine 400 mg twice a day 3. SIADH * Sodium admission 133 baseline of 141 a few weeks ago * Serial serum osmolalities: 283, 275 * Serial urine osmolality: 916 * We did have the patient on salt tablets supplementation for 24 hours, transitioned her to IV NS in the setting of concurrent orthostatic hypotension. Repeat sodium level at discharge 137. Serum osmolality did remain low throughout hospital course (284). Instructed the patient to have labs done within one week and follow-up with her PCP and neurologist 4. Orthostatic hypotension * Patient was found to be orthostatic positive: BP lying 130/70, sitting 114/60, standing 90/60 * We initially started her on salt tablets supplementation which are discontinued and hydrated with normal saline. Repeat orthostatics were negative Allergies: Coded Allergies: amoxicillin (Intermediate, GI DISTRESS 01/07/17) Disposition Summary Disposition Principal Diagnosis: Medication side effects: Carbamazepine and valproic acid Additional Diagnosis: SIADH Orthostatic hypotension Discharge Disposition: home or self care Discharge Instructions General Discharge Information Code Status: Full Code Patient's Diet: Regular diet Patient's Activity: As tolerated Follow-Up Instructions/Appts: His follow-up with the PCP within one week after discharge. Please follow-up with a neurologist next week. Have electrolytes, valproic acid and carbamazepine levels checked Medications at Discharge Discharge Medications: Stop taking the following medications: Carbamazepine (Tegretol XR) 200 MG TAB.ER.12H ORAL DAILY Carbamazepine (Carbamazepine XR) 200 MG TAB.ER.12H ORAL Every night Divalproex Sodium (Divalproex Sodium ER) 500 MG TAB.ER.24H ORAL TWICE DAILY Continue taking these medications: [Progesterone] 0.5 Tablet ORAL THREE TIMES DAILY Comments: Last Taken: 01/19/17 Time: 8:00AM Start taking the following new medications: Carbamazapine (Carbatrol) 200 MG CPMP.12HR 2 Tablet ORAL TWICE DAILY Qty = 120 No Refills Comments: Last Taken: 01/19/07 Time: 8:00AM Divalproex Sodium (Depakote ER) 250 MG TAB.ER.24H 1 Tablet ORAL 1000 Qty = 30 No Refills Comments: Last Taken: 01/19/17 Time: 8:00AM Divalproex Sodium (Divalproex Sodium) 500 MG TABLET.DR 1 Tablet ORAL 2200 Qty = 30 No Refills Comments: Last Taken: 01/18/17 Time: 10PM Copies To: BIRGIT KAPLAN,HORACIO Krause; FELICIA KAPLAN,JANKI Morrow; CIPRIANO KAPLAN,JOSE Borrego Attending MD Review Statement Documenting Attending: BRAULIO KAPLAN,MICHAELA Ortiz Other Findings: Agree with the above discharge plan.
--- NOTE | 2017-01-08 15:18 | PN- Att Addend ---
Attending MD Review Statement Attending Statement Attending MD Statement: examined this patient, discuss w/resident/PA/BILLING AUDITOR, agreed w/resident/PA/BILLING AUDITOR, reviewed EMR data (avail), discussed w/nursing, discussed w/ case mgmt Attending Assessment/Plan: Laboratory Tests 01/08/17 0859: Valproic Acid Cancelled 01/08/17 0615: Anion Gap 10, Estimated GFR > 60, BUN/Creatinine Ratio 15.7, Serum Osmolality 275 L, CBC w Diff MAN DIFF ORDERED, RBC 3.81 L, MCV 96.2, MCH 32.7 H, RDW 14.1, MPV 7.9, Gran % 35.6 L, Lymphocytes % 52.9 H, Monocytes % 10.9 H, Eosinophils % 0.1, Basophils % 0.5, Absolute Granulocytes 2.1, Segmented Neutrophils 31 L, Band Neutrophils 2, Absolute Lymphocytes 3.1, Lymphocytes 54 H, Monocytes 13 H, Absolute Monocytes 0.6, Absolute Eosinophils 0, Absolute Basophils 0, Platelet Estimate VERIFIED BY SMEAR, Normocytic RBCs VERIFIED, Normochromic RBCs VERIFIED, PUBS MCHC 34.0, Valproic Acid 87.3, Carbamazepine 8.3 01/07/17 1706: Urinalysis MOD H, Urine Color ORANG H, Urine Clarity CLEAR, Urine pH 5.5, Ur Specific [place] >= 1.030, Urine Protein 30 H, Urine Ketones >=80, Urine Nitrite NEG, Urine Bilirubin POS@ICTO H, Urine Urobilinogen 1.0, Ur Leukocyte Esterase TRACE H, Ur Microscopic SEDIMENT EXAMINED, Urine WBC 3-5 H, Ur Epithelial Cells FEW, Hyaline Casts 10-15 H, Granular Casts 1-3 H, Urine Mucus MANY H, Urine Hemoglobin NEG, Urine Glucose NEG 01/07/17 1706: Urine Opiates Screen 186.00, Methadone Screen < 40, Barbiturate Screen < 60, Ur Phencyclidine Scrn < 6.00, Amphetamines Screen < 100, U Benzodiazepines Scrn 120 , Urine Cocaine Screen < 50, Urine Cannabis Screen < 5.00, Urine Osmolality 916, Ur Random Creatinine 135.9, Ur Random Sodium 141 H, Ur Random Potassium 58.8, Fraction Sodium Excret 0.7 Vital Signs Date Time Temp Pulse Resp B/P Pulse O2 O2 Flow FiO2 Ox Delivery Rate 01/08 1417 98.3 80 20 130/70 95 Room Air 01/08 1416 80 130/70 01/08 0651 99.1 76 20 126/74 96 Room Air 01/07 2120 98.4 68 20 130/68 96 Room Air 01/07 2007 97.6 85 18 137/63 98 01/07 1752 96.7 72 20 111/73 98 Room Air 51-year-old lady with a past medical history of epilepsy (since ) with multiple episodes of seizures every year , last reported episode 2-3 months ago, and currently managed on carbamezipne and depakote, presents with complaints of gait instability and a fall. 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 Patient has very high urine sodium and urine osmolality along with low serum osmolality suggestive of SIADH. We will repeat the levels again tomorrow and put the patient on fluid restriction of 1500 cc a day. We will also start her on sodium tablets 1 g 3 times a day given the very high urine osmolality. Seizure disorder- cont to monitor on seizure meds adjusted dose. D/w pt the care plan.
[2017-01-08] MEDS ORDERED: CARBATROL200 MG PO (15:34)
[2017-01-08] MEDS ORDERED: DEPAKOTE ER250 M1 PO (15:34)
[2017-01-08] MEDS ORDERED: DIVALPROEX SOD500 M2 PO (15:34)
--- NOTE | 2017-01-08 15:37 | Patient Discharge Instructions ---
Discharge Instructions General Discharge Information You were seen/treated for: Possible side effects of valproic acid and carbamazepine levels. Low-sodium due to medication side effect. Orthostatic hypotension. Watch for these problems: Confusion, dizziness, difficulty with walking. Headaches, blurry vision Special Instructions: We have made adjustments to your seizure medications. Please take the medications as directed. Please have blood work (SODIUM LEVEL) done next week and for the results to your PCP and neurologist. Please follow up with neurology in 2 weeks after discharge. Diet Continue normal diet: Yes Activity Full Activity/No Limits: Yes Acute Coronary Syndrome Inclusion Criteria At DC or during hospital stay patient has or had the following: ACS DIAGNOSIS No Discharge Core Measures Meds if any: Prescribed or Continued at Discharge Meds if any: NOT Prescribed or Continued at Discharge Congestive Heart Failure Inclusion Criteria At DC or during hospital stay patient has or had the following: CHF DIAGNOSIS No Discharge Core Measures Meds if any: Prescribed or Continued at Discharge Meds if any: NOT Prescribed or Continued at Discharge Cerebrovascular accident Inclusion Criteria At DC or during hospital stay patient has or had the following: CVA/TIA Diagnosis No Discharge Core Measures Meds if any: Prescribed or Continued at Discharge Meds if any: NOT Prescribed or Continued at Discharge Venous thromboembolism Inclusion Criteria VTE Diagnosis No VTE Type NONE VTE Confirmed by (Test) NONE Discharge Core Measures - Per Current guidelines, there needs to be overlap - treatment for the first 5 days of Warfarin therapy. - If discharged on Warfarin prior to 5 days of - overlap therapy, the patient will need to be - assessed for post discharge needs including - *Post discharge parental anticoagulation - *Warfarin and/or parental anticoagulation education - *Follow up date to check INR post discharge At least 5 days overlap therapy as Inpatient No Meds if any: Prescribed or Continued at Discharge Note: Overlap Therapy is Warfarin and Anticoagulant Meds if any: NOT Prescribed or Continued at Discharge
[2017-01-08 22:39] VITALS: BP 110/64
[2017-01-09 06:30] VITALS: BP 124/80
--- NOTE | 2017-01-09 08:43 | PN- Housestaff ---
ROMELIA KAPLAN,HARJIT 01/09/17 0842: Subjective Follow-up For: Medication toxicity SIADH Gait disturbance Subjective: Patient seen and examined. She is seen sitting upright in bed resting comfortably. She appears to be in no acute distress. There is a family member at bedside visiting the patient. Patient reports feeling well and denies any further seizure activity. Otherwise she feels well and has no complaints. Additionally she denies any headache, fever, chills, chest pain, palpitations, shortness of breath, nausea, vomiting, diarrhea. No overnight events reported. Review of Systems Constitutional: Reports: see HPI. Objective Last 24 Hrs of Vital Signs/I&O Vital Signs Date Time Temp Pulse Resp B/P Pulse O2 O2 Flow FiO2 Ox Delivery Rate 01/09 0630 97.8 71 18 124/80 97 Room Air 01/08 2239 97.6 68 20 110/64 96 01/08 1417 98.3 80 20 130/70 95 Room Air 01/08 1416 80 130/70 Intake & Output 01/09 1600 01/09 0800 01/09 0000 Intake Total 700 Output Total 300 600 Balance -300 100 Intake, Oral 700 Number 1 Bowel Movements Output, Urine 300 600 Patient 72.575 kg Weight Physical Exam General Appearance: Alert, Oriented X3, Cooperative, No Acute Distress Other Physical Findings: General -well-developed, well-nourished middle-aged woman in no acute distress HEENT - NCAT, PERRL, EOMI, anicteric sclera Cardio - S1, S2 w/o murmurs/gallops/rubs Resp - CTA bilaterally w/o wheezing/rhochi/crackles GI - soft, nontender, nondistended, bowel sounds present Neuro - Awake and alert, CN II - XII grossly intact Extremities - no edema, pulses intact Current Medications: Current Medications Sig/Mariano Start time Last Medication Dose Route Stop Time Status Admin Acetaminophen 650 MG Q6P PRN 01/07 1500 AC PO Benzocaine/Menthol 1 YOLIS Q2P PRN 01/09 1015 AC 01/09 PO 1057 Benzonatate 100 MG TID 01/09 1000 DC PO Carbamazepine 400 MG Q12 01/08 2200 AC 01/09 PO 0940 Carbamazepine 400 MG 01/08 2200 CAN PO Carbamazepine 200 MG DAILY 01/08 1000 DC 01/08 PO 0958 Carbamazepine 300 MG 01/07 DC 01/07 PO 2236 Divalproex Sodium 250 MG DAILY 01/09 1000 AC 01/09 PO 0940 Divalproex Sodium 500 MG 01/08 AC 01/08 PO 2115 Divalproex Sodium 250 MG BID 01/07 2200 DC 01/08 PO 0957 Enoxaparin Sodium 40 MG DAILY 01/07 194 AC 01/09 SC 0940 Lorazepam 0.25 MG Q4P PRN 01/07 1745 AC IV Oxycodone/ 1 TAB Q6P PRN 01/07 1500 AC Acetaminophen PO Oxycodone/ 2 TAB Q6P PRN 01/07 1500 AC Acetaminophen PO Patient Medication 1 ED .STK-MED ONE 01/08 1354 [place] Teaching ED 01/08 1355 Patient Own 0.375 UNIT TID 01/08 2200 AC 01/09 Medication PO 0941 Patient Own 1 UNIT DAILY 01/08 1000 DC 01/08 Medication PO 0958 Sodium Chloride 1,000 MG TID 01/08 1600 AC 01/09 PO 0941 Last 24 Hrs of Lab/Emanuel Results Last 24 Hrs of Labs/Mics: Laboratory Tests 01/09/17 0620: Anion Gap 8, Estimated GFR > 60, BUN/Creatinine Ratio 15.7, Serum Osmolality 284 L 01/09/17 0615: Urine Color Pending, Urine Clarity Pending, Urine pH Pending, Ur Specific [place] Pending, Urine Protein Pending, Urine Ketones Pending, Urine Nitrite Pending, Urine Bilirubin Pending, Urine Urobilinogen Pending, Ur Leukocyte Esterase Pending, Ur Microscopic Pending, Urine Hemoglobin Pending, Urine Glucose Pending 01/09/17 0615: Ur Random Creatinine 129.5, Ur Random Sodium 6 L, Ur Random Potassium 23.6, Fraction Sodium Excret 0.0 Assessment/Plan Assessment: Patient feels well today and is denying any further seizure activity. She is currently tolerating her antiseizure medication regimen well with no adverse reactions. Physical therapy assessment pending for today. Assuming patient is seizure-free in the next 24-hour she will be considered for discharge to home tomorrow per PT assessment. Problem list: -Medication toxicity, possibly secondary to Bactrim -Seizure disorder -Possible SIADH -Hyponatremia Plan: -General medicine -Orthostatic blood pressures -Seizure precautions -Continue Tegretol 400 mg by mouth twice a day -Continue Depakote 750 mg by mouth daily -NaCl tablets discontinued -Neurology consult -PT eval, follow-up recommendations -Daily BEP, monitor sodium levels -Outpatient follow-up with Dr. Macias in 2 weeks, repeat blood levels -DVT prophylaxis -Anticipated discharge for tomorrow if seizure-free Problem List: 1. Seizure disorder Pain Ratin Pain Location: None Pain Goal: Remain pain free Pain Plan: Pain pathway Tomorrow's Labs & Rationales: BEP-hyponatremia Consulting Request: Consulting Specialty: Neurology YURY SANDOVAL MD 01/09/17 1015: Attending MD Review Statement Attending Statement Attending MD Statement: examined this patient, discuss w/resident/PA/PROFESSOR OF KINESIOLOGY, agreed w/resident/PA/PROFESSOR OF KINESIOLOGY, reviewed EMR data (avail), discussed with nursing, discussed with case mgmt Attending Assessment/Plan: The patient does say she is feeling better but she still worried about the unsteadiness and fall. She hasn't worked with physical therapy yet today. Yesterday they worked with her and said home PT once goals are met. Dr. Alegria saw her and readjusted her antiseizure medications namely valproate and carbamazepine with the idea of preventing seizures but preventing medication toxicity and she understands that she is a very fine balance between the two. Her SIADH has improved with a sodium of 138 today. I will have her work with PT today, follow follow her sodium closely, make sure she seizure-free and if okay anticipate discharge in a.m.
[2017-01-09 13:55] VITALS: BP 116/74
[2017-01-09 23:43] VITALS: BP 134/70
[2017-01-10 06:35] VITALS: BP 114/70
--- NOTE | 2017-01-10 07:18 | PN- Housestaff ---
NAYELI KAPLAN,[facility] 01/10/17 0717: Subjective Follow-up For: Medication toxicity SIADH Gait disturbance Subjective: I saw and examined the patient this am, she is alert and oriented in no distress , reports she could not sleep at all, reports some coughing which she has had from before she came in (about 2 weeks), also feels bloated and reports constipation. Reports no seizures, no dizziness and has been able to walk around without difficulty, wants to go home today. Review of Systems Constitutional: Denies: chills, fever, weakness. EENTM: Reports: no symptoms. Cardiovascular: Reports: no symptoms. Respiratory: Reports: cough. Denies: short of breath. Gastrointestinal: Reports: abdominal pain, constipation. Genitourinary: Reports: no symptoms. Musculoskeletal: Reports: back pain. Skin: Reports: no symptoms. Neurological/Psychological: Denies: ataxia, headache, numbness, weakness. Hematologic/Endocrine: Reports: bruising. Objective Last 24 Hrs of Vital Signs/I&O Vital Signs Date Time Temp Pulse Resp B/P Pulse O2 O2 Flow FiO2 Ox Delivery Rate 01/10 0635 99.0 67 18 114/70 97 Room Air 01/09 2343 97.4 76 20 134/70 97 Room Air 01/09 1355 98.7 74 20 116/74 95 Intake & Output 01/10 0800 01/10 0000 01/09 1600 Intake Total 186 184 1821 Output Total 640 Balance 856 680 2544 Intake, Oral 446 683 6117 Output, Urine 640 Patient 72.575 kg Weight Physical Exam General Appearance: Alert, Oriented X3, Cooperative, No Acute Distress Skin: there is a 3 cm long laceration sutured, on the lateral side of the right eyebrow HEENT: Atraumatic, EOMI Neck: Supple, No JVD Cardiovascular: Normal S1, Normal S2, No Murmurs Lungs: Normal Air Movement, coarse crackles on the right lower lung Abdomen: Soft, increased bowel sounds, tenderness on the right and left abdomen as well as hypogastric area. Neurological: Normal Speech, Strength at 5/5 X4 Ext, Normal Tone, Sensation Intact, Cranial Nerves 3-12 NL Extremities: No Cyanosis, No Edema, Normal Pulses Vascular: Pulses Symmetrical Current Medications: Current Medications Sig/Mariano Start time Last Medication Dose Route Stop Time Status Admin Acetaminophen 650 MG Q6P PRN 01/07 1500 AC 01/10 PO 0521 Benzocaine/Menthol 1 YOLIS Q2P PRN 01/09 1015 AC 01/09 PO 1057 Benzonatate 100 MG TID 01/09 1000 DC PO Carbamazepine 400 MG Q12 01/08 2200 AC 01/09 PO 2136 Divalproex Sodium 250 MG DAILY 01/09 1000 AC 01/09 PO 0940 Divalproex Sodium 500 MG 22001/08 2200 AC 01/09 PO 2136 Enoxaparin Sodium 40 MG DAILY 01/07 1945 AC 01/09 SC 0940 Lorazepam 0.25 MG Q4P PRN 01/07 1745 AC IV Oxycodone/ 1 TAB Q6P PRN 01/07 1500 AC 01/10 [place] 0109 Oxycodone/ 2 TAB Q6P PRN 01/07 1500 AC Acetaminophen PO Patient Own 0.375 UNIT TID 01/08 2200 AC 01/09 Medication PO 2136 Polyethylene Glycol 17 GM DAILY 01/10 1000 AC PO Sodium Chloride 1,000 MG TID 01/08 1600 DC 01/09 PO 0941 Last 24 Hrs of Lab/Emanuel Results Last 24 Hrs of Labs/Mics: Laboratory Tests 01/10/17 0615: Sodium Pending, Potassium Pending, Chloride Pending, Carbon Dioxide Pending, Anion Gap Pending, BUN Pending, Creatinine Pending, BUN/Creatinine Ratio Pending Assessment/Plan Assessment: Patient feels well today and is denying any further seizure activity. She is currently tolerating her antiseizure medication regimen well with no adverse reactions. Physical therapy assessment pending for today. Assuming patient is seizure-free in the next 24-hour she will be considered for discharge to home tomorrow per PT assessment. Problem list: -Medication toxicity, possibly secondary to Bactrim -Seizure disorder -Possible SIADH -Hyponatremia Plan: -General medicine -Orthostatic blood pressures -Seizure precautions -Continue Tegretol 400 mg by mouth twice a day -Continue Depakote 750 mg by mouth daily -NaCl tablets discontinued -Neurology consult -PT eval, follow-up recommendations -Daily BEP, monitor sodium levels -Outpatient follow-up with Dr. Macias in 2 weeks, repeat blood levels -DVT prophylaxis -Anticipated discharge for tomorrow if seizure-free Problem List: 1. Seizure disorder 2. SIADH (syndrome of inappropriate ADH production) 3. Minor head injury without loss of consciousness Pain Ratin Pain Location: abdomen Pain Goal: Pain 4 or less Pain Plan: mild pp Tomorrow's Labs & Rationales: none Consulting Request: Consulting Specialty: Neurology YURY SANDOVAL MD 01/10/17 0810: Attending MD Review Statement Attending Statement Attending MD Statement: examined this patient, discuss w/resident/PA/INSPECTOR FABRIC, agreed w/resident/PA/INSPECTOR FABRIC, reviewed EMR data (avail), discussed with nursing, discussed with case mgmt Attending Assessment/Plan: Patient did not sleep well last night. She has this dry cough that she says has been present even before she came in. Of note her chest x-ray on admission is normal. She worked again with physical therapy yesterday. She did not feel dizzy but it appears the goals were not met. Her antiseizure medications have been decreased in dosage to prevent seizures but also to prevent toxicity from medications. She was hyponatremic and orthostatic and we need to recheck orthostasis again today. If her hyponatremia is better, she's not orthostatic and she is able to meet her goals with physical therapy then she is safe to be discharged on the lower dose of antiseizure medication with close outpatient follow-up.
[2017-04-15] MEDS ORDERED: TEGRETOL XR200 M1 PO (10:58)
== END 2017-01-10 13:00 | DRG 149 ==
LOC: ENRESERVDT → ENRESERVTM → ERH 09:43 → 2NA 14:21 → ERHI 14:21 → 2NA 14:21 → EDBEDREQ 19:50 → 2NA 20:23 → ENPENDDIS 01-08 11:31 → 2NA 01-08 13:47
PROVIDERS: Emergency Medicine; Student in an Organized Health Care Education/Training Program; ADMIT Internal Medicine
DX: R42 Dizziness and giddiness (principal); E22.2 Syndrome of inappropriate secretion of antidiuretic hormone; E87.8 Other disorders of electrolyte and fluid balance, not elsewhere classified; T42.1X5A Adverse effect of iminostilbenes, initial encounter; T42.6X5A Adverse effect of other antiepileptic and sedative-hypnotic drugs, initial encounter; Y92.009 Unspecified place in unspecified non-institutional (private) residence as the place of occurrence of the external cause; R26.0 Ataxic gait; G40.909 Epilepsy, unspecified, not intractable, without status epilepticus; I95.1 Orthostatic hypotension
CPT/HCPCS: 2NASP; 84133; 84300; 73130-RT; 80307; 81001; 81003; 82436; 82570; 87086; 87804; 87804-59; 93005; 93010; 96374; 96375; 96376; 97112-GP; 97116-GO; 97116-GP; 97162-GP; 97530-GO; J1650; J2405; J3360

== ENCOUNTER 2017-01-11 15:28 | Inpatient (IN) | payer OTHER ==
[~2017-01-11] VITALS: Ht 172.7 cm; Wt 68.0 kg
[~2017-01-11 15:28] MED LIST changes: +CARBATROL200 MG PO; +DEPAKOTE ER250 M1 PO; +DIVALPROEX SOD500 M2 PO
--- NOTE | 2017-01-11 15:37 | NUR ---
51 YEAR OLD FEMALE TO ER VIA AMBULANCE FROM HER HOME . PT STATES THAT SHE GOT UP QUICK TO OPEN THE DOOR AND THEN WHEN SHE STARTED TO WALK WITH THE WALKER TO FIND PAPERS SHE LOSS HER BALANCE AND FELL ONTO HER BUTTOCKS. DENIES HITTING HER HEAD. THE VISITING NURSE WANTED HER TO COME TO ER FOR EVALUATION. ALSO STATES THAT SINCE SHE IS HERE SHE WOULD LIKE TO TALK TO THE DOCTOR ABOUT HER COUGH, STATES THAT SHE HAS HAD IT FOR 2 WEEKS AND HAD NEGATIVE CXR WHILE SHE WAS HERE.
--- NOTE | 2017-01-11 16:14 | ED MVC/FALL/TRAUMA COMPLAINT ---
History of Present Illness General Chief Complaint: Fall Stated Complaint: BIBA FOR FALL Source: patient, old records Exam Limitations: no limitations Vital Signs & Intake/Output Vital Signs & Intake/Output Vital Signs Date Time Temp Pulse Resp B/P Pulse O2 O2 Flow FiO2 Ox Delivery Rate 01/11 1903 99.1 102 18 130/73 98 Room Air 01/11 1720 97.1 96 18 125/77 98 Room Air 01/11 1532 98.4 74 18 120/60 96 Room Air Allergies Coded Allergies: amoxicillin (Intermediate, GI DISTRESS 01/07/17) Reconcile Medications Carbamazapine (Carbatrol) 200 MG CPMP.12HR 2 TAB PO BID Seizures Divalproex Sodium (Depakote ER) 250 MG TAB.ER.24H 1 TAB PO 1000 Seizures Divalproex Sodium 500 MG TABLET.DR 1 TAB PO 2200 Seizure [Progesterone] 0.5 TAB PO TID UNKNOWN (Reported) Triage Note: 51 YEAR OLD FEMALE TO ER VIA AMBULANCE FROM HER HOME . PT STATES THAT SHE GOT UP QUICK TO OPEN THE DOOR AND THEN WHEN SHE STARTED TO WALK WITH THE WALKER TO FIND PAPERS SHE LOSS HER BALANCE AND FELL ONTO HER BUTTOCKS. DENIES HITTING HER HEAD. THE VISITING NURSE WANTED HER TO COME TO ER FOR EVALUATION. ALSO STATES THAT SINCE SHE IS HERE SHE WOULD LIKE TO TALK TO THE DOCTOR ABOUT HER COUGH, STATES THAT SHE HAS HAD IT FOR 2 WEEKS AND HAD NEGATIVE CXR WHILE SHE WAS HERE. Triage Nurses Notes Reviewed? 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 The patient was admitted to this hospital 4 days ago and was discharged yesterday for intractable vertigo. The patient was found to be orthostatic hypotensive while admitted. She was sent home with a walker and visiting nursing which came for the first time today. On arrival patient denies any complaints or pain from her fall there is no head strike or loss of consciousness. She states she landed on her knees. The patient states that she continues to have a nonproductive cough denies shortness of breath nausea vomiting diarrhea no chest pain no urinary complaints is no prodromal dizziness however she states she has been feeling lightheaded upon standing. (HORACIO NIX) Past History Travel History Traveled to [place] past 21 day No Medical History Any Pertinent Medical History? 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 No (HORACIO NIX) Review of Systems Review of Systems Constitutional: Reports: see HPI. All Other Systems: Reviewed and Negative Comments Review of systems: See HPI, All other systems negative. Constitutional, no chills no fever, no malaise HEENT: No visual changes no sore throat no congestion, Cardiovascular: No chest pain , no palpitation , Skin, no rashes, no change in skin Respiratory: No dyspnea no cough no sputum GI: No nausea no vomiting, no diarrhea, no bloating/constipation : No dysuria No hematuria, no frequency, Muscle skeletal: No joint pain, no joint swelling, no back pain, no neck pain, Neurologic: No numbness no confusion, no headache Psych: No stress no anxiety no depression,. Heme/endocrine: No bruising no bleeding Immunology: No lymphadenopathy (HORACIO NIX) Physical Exam Physical Exam General Appearance: well developed/nourished, no apparent distress, alert, awake Comments: Well-developed well-nourished person in no acute distress HEENT: Normal EENT exam; PERRL, EOMI, no nystagmus. HEAD is atraumatic. moist mucous membranes. Neck: Supple, no lymphadenopathy, normal range of motion Back: Nontender, no CVA tenderness. Full range of motion Cardiovascular: Regular rate and rhythms no murmurs rubs Respiratory: Chest nontender.There were no bony deformities, no asymmetry. No respiratory distress. Patient speaking in full complete sentences. Breath sounds clear to auscultation bilaterally: NO W/R/R Abdomen: Soft, nontender nondistended, no appreciable organomegaly. Normal bowel sounds. No rebound/guarding, Extremity: No edema, full range of motion of extremities, normal and equal pulses bilaterally, 5 out of 5 strength noted to bilateral upper and lower extremities Neuro: Alert oriented x3, motor sensory normal. There were no obvious focal neurologic abnormalities. Skin: No appreciable rash on exposed skin, skin is warm and dry. Psych: Mood and affect is normal, memory and judgment is normal. Core Measures ACS in differential dx? Yes Severe Sepsis Present: No Septic Shock Present: No (SANDRA HENRIQUEZ,HORACIO) Progress Differential Diagnosis: C/T/L spine injury, ext injury, ICH, pelvis injury, INTRA-ABDOMINAL PATHOLOGY, DIVERTICULITIS uti SEPSIS ORTHOSTATIC HYPOTENSION DEHYDRATION Plan of Care: Orders Procedure Date/time Status Nothing by Mouth 01/12 B Active LACTIC ACID 01/12 0210 Active Saline Lock 01/11 2315 Active Misc Message 01/11 2315 Active ED Holding Orders 01/11 2315 Active Vital Signs 01/11 2315 Active Activity/Ambulation 01/11 2315 Active Code Status 01/11 231 Active LACTIC ACID 01/11 231 Active Patient Data 01/11 2309 Active Add-on Test (ER Only) 01/11 230 Active Admit to inpatient 01/11 2305 Active Add-on Test (ER Only) 01/11 2015 Active URINALYSIS 01/11 1835 Complete CASE MANAGEMENT CONSULT 01/11 1829 Active EKG 01/11 1650 Active HUMAN BETA HCG SCREEN 01/11 1640 Active DEPAKOTE LEVEL 01/11 1640 Active MISTAKE 01/11 1606 Active COMPREHENSIVE METABOLIC PANEL 01/11 1606 Active CBC WITHOUT DIFFERENTIAL 01/11 1606 Complete Intake & Output 01/11 1536 Active Current Medications Sig/Mariano Start time Last Medication Dose Stop Time Status Admin Ampicillin Sodium/ 3,000 MG ONCE ONE 01/11 2315 AC Sulbactam Sodium 01/11 2344 (Unasyn) Sodium Chloride 100 ML (Normal Saline 0.9%) Sodium Chloride 1,000 ML .Q8H 01/11 2315 AC (Normal Saline 0.9%) Laboratory Tests 01/11/17 1850: Urine Color ALISHA, Urine Clarity CLEAR, Urine pH 6.0, Ur Specific Salix >= 1.030, Urine Protein 100 H, Urine Ketones TRACE H, Urine Nitrite POS H, Urine Bilirubin NEG@ICTO, Urine Urobilinogen 1.0, Ur Leukocyte Esterase NEG, Ur Microscopic SEDIMENT EXAMINED, Urine WBC RARE, Ur Epithelial Cells RARE, Urine Bacteria MOD H, Urine Mucus RARE, Urine Hemoglobin NEG, Urine Glucose NEG 01/11/17 1640: Anion Gap 13, Estimated GFR > 60, BUN/Creatinine Ratio 16.7, Glucose 140 H, Calcium 9.5, Total Bilirubin 1.0, AST 24, ALT 17, Alkaline Phosphatase 49, Total Protein 6.9, Albumin 3.8, Globulin 3.1, Albumin/Globulin Ratio 1.2, Total Beta HCG NEGATIVE, CBC w Diff MAN DIFF ORDERED, RBC 4.50, MCV 99.1 H, MCH 32.6 H, RDW 14.3, MPV 7.8, Gran % 73.8, Lymphocytes % 12.7 L, Monocytes % 13.0 H, Eosinophils % 0, Basophils % 0.5, Absolute Granulocytes 13.2 H, Segmented Neutrophils 64, Band Neutrophils 7 H, Absolute Lymphocytes 2.3, Lymphocytes 16 L, Monocytes 13 H, Absolute Monocytes 2.3 H, Absolute Eosinophils 0, Absolute Basophils 0.1, Platelet Estimate VERIFIED BY SMEAR, Normocytic RBCs VERIFIED, Normochromic RBCs VERIFIED, PUBS MCHC 32.9 L, Fld Total RBCs Counted 100, Valproic Acid Pending Labs ordered IV fluids were given patient's orthostatic hypotension old records reviewed, patient was orthostatic during her last hospital stay, chest x-ray ordered case discussed with Dr. Pagan. Repeat evaluation patient ambulatory around the emergency room however unsteady gait not at baseline, I discussed the case with Dr. Oliveros, as well as the patient's family and the patient herself, she is in agreement with plan of stay given she is a fall risk given his fall today she was at home alone premature discharge would BE medically harmful CAT scan was ordered to rule out any intra- abdominal pathology given patient's elevated white blood cell count Case was discussed with and signed out to Dr. OLIVEROS PENDING ct at 1999 (HORACIO NIX) Diagnostic Imaging: Viewed by Me: Radiology Read, CT Scan. Discussed w/RAD: Radiology Read, CT Scan. Radiology Impression: PATIENT: MAYRA PRADHAN PRESENT AGE: 51 PATIENT ACCOUNT NO: [id number] : 63 LOCATION: ER ORDERING PHYSICIAN: GARY HUERTAS DO SERVICE DATE: 01/07/17 EXAM TYPE: RAD - XRY-CHEST XRAY, PA AND LATERAL EXAMINATION: XR CHEST CLINICAL INFORMATION: Cough COMPARISON: None TECHNIQUE: 2 views of the chest were obtained. FINDINGS: The lungs are clear with no focal consolidation. No evidence of pneumothorax, pulmonary edema, or pleural effusions. The cardiomediastinal silhouette is unremarkable. No acute osseous findings. IMPRESSION: No acute cardiopulmonary findings. DICTATED BY: NAYAN MARLEY MD DATE/TIME DICTATED:01/07/171053 TURNER IN:ANILA DATE/TIME TRANSCRIBED:01/07/171053 CONFIDENTIAL, DO NOT COPY WITHOUT APPROPRIATE AUTHORIZATION., PATIENT: MAYRA PRADHAN PRESENT AGE: 51 PATIENT ACCOUNT NO: [id number] : 63 LOCATION: ER ORDERING PHYSICIAN: HORACIO HENRIQUEZ SERVICE DATE: 01/11/17 EXAM TYPE: RAD - XRY-PORTABLE CHEST XRAY EXAMINATION: XR PORTABLE CHEST CLINICAL INFORMATION: Cough. COMPARISON: Chest x-ray 01/07/2017 TECHNIQUE: Portable AP portable view of the chest was obtained. 5:28 PM FINDINGS: No significant abnormality is noted involving the heart, lungs, mediastinum, bony thorax or soft tissues. IMPRESSION: Unremarkable examination. DICTATED BY: MOISES BRITO MD DATE/TIME DICTATED:01/11/171738 TURNER IN:SHINE DATE/TIME TRANSCRIBED:01/11/171738 CONFIDENTIAL, DO NOT COPY WITHOUT APPROPRIATE AUTHORIZATION. <Electronically signed in Other Vendor System> SIGNED BY: MOISES BRITO MD 01/11/171742 Initial ED EKG: normal intervals, normal p-waves, normal QRS complex, normal sinus rhythm (70) Prior EKG: unchanged (01/07/17) Hand-Off Endorsed To: DOMO KAPLAN,RINA Cook Endorsed Time: 1999 Pending: CT (SANDRA HENRIQUEZ,HORACIO) Comments: Patient states that she has had abdominal pain with coughing began while she was still admitted to the hospital. Patient states that the pain is diffuse and increased with coughing. Patient has been anorexic so has not noticed if there is an increase in pain after eating. Her CAT scan shows acute cholecystitis. Her white count has increased. Patient has been seen and evaluated by surgery. Patient has been given broad-spectrum antibiotics. Patient will be admitted to the medical service for continued evaluation of these orthostatic changes and lightheadedness and surgery will follow closely. (DOMO KAPLAN,RINA Cook) Departure Departure Disposition: STILL A PATIENT Condition: Stable Clinical Impression Primary Impression: Orthostatic hypotension Secondary Impressions: Leukocytosis Referrals: FELICIA KAPLAN,JANKI Morrow (PCP/Family) Departure Forms: Customer Survey General Discharge Information (HORACIO NIX) Admission Note Spoke With: YOLANDA GARCIA MD Documentation of Exam: Documentation of any treatments & extenuating circumstances including Concerns Regarding Discharge (functional status, medication knowledge or non-compliance, living conditions, etc.) that warrant an admission rather than observation: [IV fluids, IV Unasyn, telemetry monitoring, serial abdominal exams, patient may require going to the OR for cholecystectomy once medically clear.] PA/MANAGEMENT EXPERT Co-Sign Statement Statement: ED Attending supervision documentation- [X] I saw and evaluated the patient. I have also reviewed all the pertinent lab results and diagnostic results. I agree with the findings and the plan of care as documented in the PA's/MANAGEMENT EXPERT's documentation. [X] I have reviewed the ED Record and agree with the PA's/MANAGEMENT EXPERT's documentation. [] Additions or exceptions (if any) to the PAs/MANAGEMENT EXPERT's note and plan are summarized below: [] (DOMO KAPLAN,RINA Cook)
--- NOTE | 2017-01-11 16:44 | NUR ---
LINA DRAWN AND SENT TO LAB
[2017-01-11 16:54] LABS: ABSOLUTE BASOPHIL COUNT 0.1 /CUMM (0.0-0.2); ABSOLUTE EOSINOPHIL COUNT 0 /CUMM (0.0-0.7); ABSOLUTE GRANULOCYTE CT 13.2 /CUMM (1.4-6.5); ABSOLUTE LYMPH COUNT 2.3 /CUMM (1.2-3.4); ABSOLUTE MONOCYTE COUNT 2.3 /CUMM (0.10-0.60); BASOPHIL % 0.5 % (0.0-2.0); EOSINOPHIL % 0 % (0-5); MEAN CORPUSCULAR HGB 32.6 PG (27.0-31.0); MEAN CORPUSCULAR HGB CONC 32.9 G/DL (33.0-37.0); MEAN CORPUSCULAR VOLUME 99.1 FL (81.0-99.0); MEAN PLATELET VOLUME 7.8 FL (7.4-10.4); PLATELET COUNT 209 /CUMM (130-400); RBC DISTRIBUTION WIDTH 14.3 % (11.5-14.5)
[2017-01-11 16:57] LABS: GRANULOCYTE % 73.8 % (42.2-75.2); HEMATOCRIT 44.6 % (37-47); WHITE BLOOD CELL COUNT 17.9 /CUMM (4.8-10.8)
--- NOTE | 2017-01-11 17:20 | NUR ---
PT RESTING ON STRETCHER AT THIS TIME OFFERS NO COMPLAINTS TO THIS NURSE. PT AWARE THAT WE ARE WAITING ON LAB RESULTS
--- NOTE | 2017-01-11 17:43 | RADIOLOGY REPORT ---
EXAMINATION: XR PORTABLE CHEST CLINICAL INFORMATION: Cough. COMPARISON: Chest x-ray 01/07/2017 TECHNIQUE: Portable AP portable view of the chest was obtained. 5:28 PM FINDINGS: No significant abnormality is noted involving the heart, lungs, mediastinum, bony thorax or soft tissues. IMPRESSION: Unremarkable examination.
--- NOTE | 2017-01-11 18:10 | NUR ---
AMBULATED PT WITH WALKER, STATES SHE FELT "TIRED" DENIES DIZZINESS; PA AWARE
--- NOTE | 2017-01-11 18:36 | NUR ---
PER PA , PTS WBC COUNT WENT FROM 5-18 , PT DOES NOT WANT TO BE ADMITTED TO HOSPITAL . TEMP 99.4 AT THIS TIME. PT AWARE THAT WE NEED A URINE SAMPLE. COMMODE BEING OBTAINED. PT NOTED WITH [address] TO R TEMPORAL AREA WITH YELLOWISH BRUISING, STATES THAT SHE HIT HER HEAD PRIOR TO THE LAST TIME SHE WAS ADMITTED. COLOR PALE.
--- NOTE | 2017-01-11 18:42 | NUR ---
WHEN THIS NURSE ASSISTED PT UP TO COMMODE, PT COMPLAINED OF MID ABD PAIN, STATES THAT IT HAS BEEN THERE SINCE HER LAST ADMISSION, DENIES NAUSEA. PT NOTED WITH ABD PAIN ON LIGHT PALPATION TO LLQ/RLQ AND LOW MID ABD. DENIES ANY URINARY SYMPTOMS
--- NOTE | 2017-01-11 18:52 | NUR ---
PT ASSISTED BACK TO STRETCHER, PT VOIDED SMALL AMOUNT OF DARK URINE, STILL DENIES ANY URINARY SYMPTOMS. PA AWARE AND AT BEDSIDE TO RE-EVALUATE PATIENT AT THIS TIME
--- NOTE | 2017-01-11 19:02 | NUR ---
IV PLACED AND FLUIDS INFUSING AT THIS TIME
--- NOTE | 2017-01-11 20:33 | NUR ---
PT AWARE THAT WE ARE AWAITING CAT SCAN AT THIS TIME.
--- NOTE | 2017-01-11 21:02 | NUR ---
PT TAKEN TO CAT SCAN AT THIS TIME VIA STRETCHER.
--- NOTE | 2017-01-11 21:10 | NUR ---
PT RETURNED FROM CAT SCAN.
--- NOTE | 2017-01-11 21:26 | CT SCAN REPORT ---
EXAMINATION: CT ABDOMEN AND PELVIS WITHOUT CONTRAST CLINICAL INFORMATION: Bilateral lower quadrant abdominal pain. WBC 18. COMPARISON: None TECHNIQUE: Multidetector volumetric imaging was performed from the superior aspect of the liver through the pubic symphysis. Sagittal and coronal reformatted images were obtained on the technologist's workstation. DLP: 326.87 mGy-cm FINDINGS: LUNG BASES: Right basilar infiltrate or atelectasis with small right pleural effusion at the posterior right costophrenic angle. LIVER, GALLBLADDER, AND BILIARY TREE: The liver is normal in size, shape, and attenuation. No focal hepatic lesion or biliary ductal dilatation is present. The gallbladder is distended with edema around the gallbladder. There are multiple gallstones are radiolucent with slightly dense rims measuring up to about 1.6 cm in diameter. Findings are consistent with an acute cholecystitis. With edema around the gallbladder and the area the alycia hepatis it is difficult to identify and assess the extrahepatic CBD. PANCREAS: There is edema around the head of pancreas at the alycia hepatis but this is likely secondary to the acute cholecystitis. No pancreatic duct dilatation and no edema of the body or tail the pancreas. MESENTERY: There is edema in the right upper quadrant around the gallbladder consistent with acute cholecystitis. This extends around the paracolic gutter with fluid tracking into the pelvis. No free air. No focal abscess. SPLEEN: Unremarkable. ADRENAL GLANDS: Unremarkable. KIDNEYS AND URETERS: The kidneys are normal in size, shape, and attenuation. No hydronephrosis, hydroureter, or calculi seen. No perinephric stranding. BLADDER: Unremarkable. GASTROINTESTINAL TRACT: No acute change of the bowel. No bowel obstruction. No bowel wall thickening or edema. Moderate volume of stool in the colon. The appendix is not seen. Small bowel loops are normal. ABDOMINAL WALL: No significant hernia is appreciated. LYMPH NODES: Normal. VASCULAR: Atherosclerotic vascular wall calcifications of aorta and iliac vessels. PELVIC VISCERA: Unremarkable. OSSEOUS STRUCTURES: Vacuum disc phenomena at L5-S1. IMPRESSION: Distended edematous gallbladder with gallstones. Significant edema around the gallbladder extending into the pelvis. Findings are consistent with an acute cholecystitis.
--- NOTE | 2017-01-11 22:29 | NUR ---
AWAITING EVAL BY SURGICAL PA.
--- NOTE | 2017-01-11 23:23 | NUR ---
HOUSESTAFF AT BEDSIDE.
--- NOTE | 2017-01-11 23:38 | NUR ---
PT MEDICATED WITH UNASYN 3000 MG IN 100ML NS RUNNING AT 200ML/HR.
--- NOTE | 2017-01-11 23:43 | History & Physical ---
YANIQUE KAPLAN,[facility] 01/11/17 2343: General Information and HPI MD Statement: I have seen and personally examined MAYRA PRADHAN and documented this H&P. The patient is a 51 year old F who presented with a patient stated chief complaint of [I fell this evening]. Source of Information: patient, old records Exam Limitations: no limitations History of Present Illness: This is a 51-year-old lady with a history of seizure diagnosis at , recent admission to [facility] 4 days ago recently discharged yesterday at time of which she was admitted for gait instability, dizziness, nausea that presents to the emergency room today with a chief complaint of "I fell to the floor in my legs gave out". Patient states that yesterday she was discharged from the hospital only went home and today when her visiting nurse came in to see her, patient feels that she stumbled over her own walker. Denies any chest pain, shortness of breath, dizziness, syncope or near-syncope. Denies any postictal- like symptoms. States that the visiting nurse recommended she come to the emergency room and get evaluated. Patient also states that over the course of last couple of days she has been having diffuse abdominal pain not related to food however her appetite has decreased over the same amount of time. Patient herself denies any history of myocardial infarction, TIA, or stroke. Negative social history of smoking, alcohol or drug use. She was seen and evaluated by the surgical PA in the emergency room given her white count and findings suggestive of cholecystitis in the ER, per surgical PA med she discussed the case with Dr. Trujillo and the plan is currently to keep her nothing by mouth, give her IV antibiotics and she may potentially get a cholecystectomy tomorrow if her symptoms don't improve. Allergies/Medications Allergies: Coded Allergies: amoxicillin (Intermediate, GI DISTRESS 01/07/17) Home Med list Carbamazapine (Carbatrol) 200 MG CPMP.12HR 2 TAB PO BID Seizures Divalproex Sodium (Depakote ER) 250 MG TAB.ER.24H 1 TAB PO 1000 Seizures Divalproex Sodium 500 MG TABLET. 1 TAB PO 2200 Seizure [Progesterone] 0.5 TAB PO TID UNKNOWN (Reported) Past History Travel History Traveled to [place] past 21 day No Medical History Neurological: EPILEPSY EENT: NONE Cardiovascular: NONE Respiratory: NONE Gastrointestinal: NONE Hepatic: NONE Renal: NONE Musculoskeletal: NONE Psychiatric: NONE Endocrine: NONE Blood Disorders: NONE Cancer(s): NONE RN COMPLIANCE/Reproductive: NONE History of MRSA: No History of VRE: No History of CDIFF: No Isolation History: Standard Tetanus Vaccine: 05/27/15 Surgical History Surgical History: none Past Family/Social History Family History Relations & Conditions if any FATHER, ; Cause: Myocardial infarct. Psychosocial History Where do you live? Home Who Do You Live With? self Services at Home: None Primary Language: Gambian Smoking Status: Never Smoked ETOH Use: denies use Illicit Drug Use: denies illicit drug use Functional Ability ADLs Independent: dressing, eating, toileting, bathing. IADLs Independent: shopping, housework, finances, food prep, telephone, transportation , medication admin. Review of Systems Review of Systems Constitutional: Reports: see HPI. Exam & Diagnostic Data Last 24 Hrs of Vital Signs/I&O Vital Signs Date Time Temp Pulse Resp B/P Pulse O2 O2 Flow FiO2 Ox Delivery Rate 01/11 1903 99.1 102 18 130/73 98 Room Air 01/11 1720 97.1 96 18 125/77 98 Room Air 01/11 1532 98.4 74 18 120/60 96 Room Air Intake & Output 01/11 1600 01/11 0800 01/11 0000 Intake Total 0 Output Total Balance 0 Intake, Oral 0 Patient 145 lb Weight Physical Exam General Appearance Alert, Oriented X3, Cooperative, No Acute Distress HEENT Atraumatic, PERRLA, EOMI Neck Supple, No JVD, No thryomegaly Cardiovascular Regular Rate, Normal S1, Normal S2 Lungs Clear to Auscultation, Normal Air Movement Abdomen Normal Bowel Sounds, Soft, diffuse tenderness to palpation over abdomen Neurological Normal Speech, Strength at 5/5 X4 Ext, Normal Tone, Sensation Intact, Cranial Nerves 3-12 NL Extremities No Clubbing, No Cyanosis, No Edema Last 24 Hrs of Labs/Emanuel: Laboratory Tests 01/11/17 1850: Urine Color ALISHA, Urine Clarity CLEAR, Urine pH 6.0, Ur Specific [place] >= 1.030, Urine Protein 100 H, Urine Ketones TRACE H, Urine Nitrite POS H, Urine Bilirubin NEG@ICTO, Urine Urobilinogen 1.0, Ur Leukocyte Esterase NEG, Ur Microscopic SEDIMENT EXAMINED, Urine WBC RARE, Ur Epithelial Cells RARE, Urine Bacteria MOD H, Urine Mucus RARE, Urine Hemoglobin NEG, Urine Glucose NEG 01/11/17 1640: Anion Gap 13, Estimated GFR > 60, BUN/Creatinine Ratio 16.7, Glucose 140 H, Calcium 9.5, Total Bilirubin 1.0, AST 24, ALT 17, Alkaline Phosphatase 49, Total Protein 6.9, Albumin 3.8, Globulin 3.1, Albumin/Globulin Ratio 1.2, Total Beta HCG NEGATIVE, CBC w Diff MAN DIFF ORDERED, RBC 4.50, MCV 99.1 H, MCH 32.6 H, RDW 14.3, MPV 7.8, Gran % 73.8, Lymphocytes % 12.7 L, Monocytes % 13.0 H, Eosinophils % 0, Basophils % 0.5, Absolute Granulocytes 13.2 H, Segmented Neutrophils 64, Band Neutrophils 7 H, Absolute Lymphocytes 2.3, Lymphocytes 16 L, Monocytes 13 H, Absolute Monocytes 2.3 H, Absolute Eosinophils 0, Absolute Basophils 0.1, Platelet Estimate VERIFIED BY SMEAR, Normocytic RBCs VERIFIED, Normochromic RBCs VERIFIED, PUBS MCHC 32.9 L, Fld Total RBCs Counted 100, Valproic Acid 79.5 Diagnostic Data EKG Results Rate 97, IL 136, QRS 76, QTC 417 neck signs sinus rhythm, left axis deviation, no significant changes since previous tracing CXR Results IMPRESSION: Unremarkable examination. Other Results CAT scan of the abdomen and pelvis- IMPRESSION: Distended edematous gallbladder with gallstones. Significant edema around the gallbladder extending into the pelvis. Findings are consistent with an acute cholecystitis. Assessment/Plan Assessment: Assessment- 1. Sepsis, likely secondary to acute on chronic cholecystitis 2. Abdominal pain likely secondary to cholecystitis 3. Mechanical fall 4. Asymptomatic bacteriuria 5. History of seizure disorder since childhood Plan- Admit to Vitals per protocol Get initial troponin EKG Isaacs culture Normal saline bolus 2 L, then maintenance fluids normal saline 100 mL per hour In the medical record it states that she has an allergy to amoxicillin, namely diarrhea, and presently she was given Unasyn in the ER without any complications Will keep nothing by mouth in anticipation of surgery IV analgesics Continue all other home meds DVT prophylaxis with subcutaneous heparin Pain pathway Full code Pts. RCRI is 0.9% risk of major cardiac event. I discussed the case with surgical PA Bradley, he discussed the need for surgery with Dr. Trujillo who recommends patient be kept nothing by mouth overnight, and that she receive adequate IV fluid hydration and antibiotics As Ranked By This Provider Problem List: 1. Leukocytosis 2. Orthostatic hypotension 3. Seizure disorder 4. SIADH (syndrome of inappropriate ADH production) 5. Gait abnormality Core Measures/Miscellaneous Acute Coronary Syndrome ACS Diagnosis: No Cerebrovascular Accident CVA/TIA Diagnosis: No Congestive Heart Failure CHF Diagnosis: No Venous Thromboembolism VTE Risk Factors: Age > 40 VTE Prophylaxis Ordered Inpt: Pharm- Heparin No Mech VTE prophylaxis d/t: No contraindications No VTE Pharm Prophylaxis d/t: VTE low risk VTE Diagnosis: No VTE Type: NONE VTE Confirmed by (Test): NONE Severe Sepsis Severe Sepsis Present: No Septic Shock Septic Shock Present: No Miscellaneous Documentation Attending Case Discussed With: YOLANDA GARCIA MD Primary Care Physician: JANKI DUARTE MD Patient sees these Specialists NONE Level of Patient Care: General Medicine Resident Review Statement Resident Statement: examined this patient, discussed with development intern YOLANDA GARCIA 01/12/17 0518: Attending MD Review Statement Attending Statement Attending MD Statement: examined this patient, discuss w/resident/PA/PAIL BAILER, agreed w/resident/PA/PAIL BAILER, reviewed EMR data (avail), reviewed images, amended to note Attending Assessment/Plan: CC: Fall, abdominal pain PMH : Seizure Patient was admitted to [facility] for vertigo, dizziness and gait instability 4 days ago recently, discharged on Jan 10. Patient comes back again today to ER for mechanical fall. When patient's home health nurse visited her for first time today patient went to open the door and she feels that she stumbled over her own walker. She Denies any chest pain, SOB, dizziness, syncope or near-syncope, confusion, seizures, LOC. Nurse suggested to go to the ER for fall. There was no trauma, acute pain, open injury related to fall. While being evaluated in ER for fall patient complained of abdominal pain associated abdomen was obtained which showed cholecystitis. Surgery was consulted who suggested medical admission at this time. Patient states that she has been having this abdominal pain since Wednesday all over her abdomen but mostly in the right upper quadrant, constant, decreased appetite, nonradiating, no nausea or vomiting, no constipation diarrhea, no urinary symptoms. Vitals: Tmax 99.1, mild tachycardia, HR, RR, blood pressure in acceptable range. On examination no acute distress, a O 3, neck supple, no lymphadenopathy, mucosa dry, no JVD, CVS: S1-S2, RRR, RS: Clear to auscultate bilaterally abdomen : Tenderness right upper quadrant, no guarding or rigidity, Adan's sign positive, bowel sounds present. No dependent edema, peripheral pulses and perfusion normal. Labs: WBC 17.9, glucose 140, lactate 1.2, otherwise CBC BMP LFT unremarkable. Alkaline phosphatase 49, AST 24, ALT 17. Urine positive for nitrites CT abdomen and pelvis:Distended edematous gallbladder with gallstones. Significant edema around the gallbladder extending into the pelvis. Findings are consistent with an acute cholecystitis. A and P #1 acute cholecystitis: as evidenced on CT abdomen, leukocytosis, right upper quadrant tender. Surgery consulted, continue IV Unasyn, continue IV hydration, check lactic acid. Patient has low cardiac risk for surgery. Nothing by mouth #2 fall: Appears to be mechanical, no LOC, confusion, seizure. Orthostatic vitals done in ER are not significant. #3 seizure disorder: Continue her home medications.
--- NOTE | 2017-01-12 00:31 | Cons- General Surgery ---
BENJAMIN SOW 01/12/17 0022: General Information and HPI Consulting Request Date of Consult: 01/12/17 Requested By: YOLANDA GARCIA MD Reason for Consult: Abdominal pain Source of Information: patient, old records Exam Limitations: no limitations History of Present Illness: Ms. Hamlin is a 51-year-old female who was recently discharged from [facility] for syncope returns today with similar symptoms along with abdominal pain. She states that she had the pain on the last admission but she was told that it was attributed to the several episodes of coughing that she had during this admission. Upon discharge she did not complain of significant abdominal pain but did return with her syncopal symptoms today. During her evaluation it was noted by her examiner that she did have some abdominal pain but while she was in the emergency room abdominal pain had decreased. As result CAT scan was obtained which was read as probable acute cholecystitis. This coupled with a leukocytosis of 17,000 is concerning. After reviewing this case with Dr. Trujillo he feels as though this cholecystitis is not acute but chronic but does warrant an admission for her syncope but IV fluids and antibiotics to cover her abdominal complaints to make sure this does not exacerbate to cholangitis. She has no constitutional symptoms at home she denies chest pain shortness of breath nausea vomiting at this time and no changes in her urinary or bowel habits. Allergies/Medications Allergies: Coded Allergies: amoxicillin (Intermediate, GI DISTRESS 01/07/17) Home Med List: Carbamazapine (Carbatrol) 200 MG CPMP.12HR 2 TAB PO BID Seizures Divalproex Sodium (Depakote ER) 250 MG TAB.ER.24H 1 TAB PO 1000 Seizures Divalproex Sodium 500 MG TABLET.DR 1 TAB PO 2200 Seizure [Progesterone] 0.5 TAB PO TID UNKNOWN (Reported) Past History Medical History Neurological: EPILEPSY EENT: NONE Cardiovascular: NONE Respiratory: NONE Gastrointestinal: NONE Hepatic: NONE Renal: NONE Musculoskeletal: NONE Psychiatric: NONE Endocrine: NONE Blood Disorders: NONE Cancer(s): NONE 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 Psychosocial History Where Do You Live? Home Who Do You Live With? self Services at Home: None Primary Language: Swedish Smoking Status: Never Smoked ETOH Use: denies use Illicit Drug Use: denies illicit drug use Functional Ability ADLs Independent: dressing, eating, toileting, bathing. IADLs Independent: shopping, housework, finances, food prep, telephone, transportation , medication admin. Exam & Diagnostic Data Vital Signs and I&O Vital Signs Date Time Temp Pulse Resp B/P Pulse O2 O2 Flow FiO2 Ox Delivery Rate 01/11 1903 99.1 102 18 130/73 98 Room Air 01/11 1720 97.1 96 18 125/77 98 Room Air 01/11 1532 98.4 74 18 120/60 96 Room Air Intake & Output 01/12 0800 01/12 0000 01/11 1600 01/11 0800 01/11 0000 01/10 1600 Intake Total 0 Output Total Balance 0 Intake, Oral 0 Patient 145 lb Weight Physical Exam General Appearance: alert, awake, mild distress Head: atraumatic, normal appearance Eyes: Bilateral: PERRL. Cardiovascular: regular rate/rhythm Gastrointestinal: diffuse abdominal pain to palpation however more significant in right upper quadrant and left lower quadrant, positive bowel sounds in all 4 quadrants, abdomen is soft and flat, no evidence of distention or peritonitis Back: normal inspection Extremities: no edema Neurologic/Psych: oriented x 3 Last 24 Hours of Labs: Laboratory Tests 01/11 1850 Urines Urine Color (YEL,AMB,STR) ALISHA Urine Clarity (CLEAR) CLEAR Urine pH (5.0 - 8.0) 6.0 Ur Specific [place] (1.001 - 1.035) >= 1.030 Urine Protein (NEG,<30 MG/DL) 100 H Urine Ketones (NEG) TRACE H Urine Nitrite (NEG) POS H Urine Bilirubin (NEG) NEG@ICTO Urine Urobilinogen (0.1 - 1.0 EU/dl) 1.0 Ur Leukocyte Esterase (NEG) NEG Ur Microscopic SEDIMENT EXAMINED Urine WBC (0 - 2 /HPF) RARE Ur Epithelial Cells (NONE,FEW) RARE Urine Bacteria (NEG/NONE) MOD H Urine Mucus (FEW,NONE) RARE Urine Hemoglobin (NEG) NEG Urine Glucose (N MG/DL) NEG 01/11 1640 Chemistry Sodium (137 - 145 mmol/L) 137 Potassium (3.5 - 5.1 mmol/L) 4.5 Chloride (98 - 107 mmol/L) 96 L Carbon Dioxide (22 - 30 mmol/L) 28 Anion Gap (5 - 16) 13 BUN (7 - 17 mg/dL) 10 Creatinine (0.5 - 1.0 mg/dL) 0.6 Estimated GFR (>60 ml/min) > 60 BUN/Creatinine Ratio (7 - 25 %) 16.7 Glucose (65 - 99 mg/dL) 140 H Calcium (8.4 - 10.2 mg/dL) 9.5 Total Bilirubin (0.2 - 1.3 mg/dL) 1.0 AST (14 - 36 U/L) 24 ALT (9 - 52 U/L) 17 Alkaline Phosphatase (<127 U/L) 49 Troponin I (< 0.11 ng/ml) Pending Total Protein (6.3 - 8.2 g/dL) 6.9 Albumin (3.5 - 5.0 g/dL) 3.8 Globulin (1.9 - 4.2 gm/dL) 3.1 Albumin/Globulin Ratio (1.1 - 2.2 %) 1.2 Total Beta HCG (NEGATIVE) NEGATIVE Hematology CBC w Diff MAN DIFF ORDERED WBC (4.8 - 10.8 /CUMM) 17.9 H RBC (4.20 - 5.40 /CUMM) 4.50 Hgb (12.0 - 16.0 G/DL) 14.7 Hct (37 - 47 %) 44.6 MCV (81.0 - 99.0 FL) 99.1 H MCH (27.0 - 31.0 PG) 32.6 H RDW (11.5 - 14.5 %) 14.3 Plt Count (130 - 400 /CUMM) 209 MPV (7.4 - 10.4 FL) 7.8 Gran % (42.2 - 75.2 %) 73.8 Lymphocytes % (20.5 - 51.1 %) 12.7 L Monocytes % (1.7 - 9.3 %) 13.0 H Eosinophils % (0 - 5 %) 0 Basophils % (0.0 - 2.0 %) 0.5 Absolute Granulocytes (1.4 - 6.5 /CUMM) 13.2 H Segmented Neutrophils (42.2 - 75.2 %) 64 Band Neutrophils (0.0 - 5.0 %) 7 H Absolute Lymphocytes (1.2 - 3.4 /CUMM) 2.3 Lymphocytes (20.5 - 51.1 %) 16 L Monocytes (1.7 - 9.3 %) 13 H Absolute Monocytes (0.10 - 0.60 /CUMM) 2.3 H Absolute Eosinophils (0.0 - 0.7 /CUMM) 0 Absolute Basophils (0.0 - 0.2 /CUMM) 0.1 Platelet Estimate (ADEQUATE) VERIFIED BY SMEAR Normocytic RBCs VERIFIED Normochromic RBCs VERIFIED PUBS MCHC (33.0 - 37.0 G/DL) 32.9 L Other Body Source Fld Total RBCs Counted (%) 100 Toxicology Valproic Acid (50 - 120 ug/mL) 79.5 Imaging Results: SERVICE DATE: 01/11/17 EXAM TYPE: CAT - CT ABD & PELVIS W/O IV CONTRAS EXAMINATION: CT ABDOMEN AND PELVIS WITHOUT CONTRAST CLINICAL INFORMATION: Bilateral lower quadrant abdominal pain. WBC 18. COMPARISON: None TECHNIQUE: Multidetector volumetric imaging was performed from the superior aspect of the liver through the pubic symphysis. Sagittal and coronal reformatted images were obtained on the technologist's workstation. DLP: 326.87 mGy-cm FINDINGS: LUNG BASES: Right basilar infiltrate or atelectasis with small right pleural effusion at the posterior right costophrenic angle. LIVER, GALLBLADDER, AND BILIARY TREE: The liver is normal in size, shape, and attenuation. No focal hepatic lesion or biliary ductal dilatation is present. The gallbladder is distended with edema around the gallbladder. There are multiple gallstones are radiolucent with slightly dense rims measuring up to about 1.6 cm in diameter. Findings are consistent with an acute cholecystitis. With edema around the gallbladder and the area the alycia hepatis it is difficult to identify and assess the extrahepatic CBD. PANCREAS: There is edema around the head of pancreas at the alycia hepatis but this is likely secondary to the acute cholecystitis. No pancreatic duct dilatation and no edema of the body or tail the pancreas. MESENTERY: There is edema in the right upper quadrant around the gallbladder consistent with acute cholecystitis. This extends around the paracolic gutter with fluid tracking into the pelvis. No free air. No focal abscess. SPLEEN: Unremarkable. ADRENAL GLANDS: Unremarkable. KIDNEYS AND URETERS: The kidneys are normal in size, shape, and attenuation. No hydronephrosis, hydroureter, or calculi seen. No perinephric stranding. BLADDER: Unremarkable. GASTROINTESTINAL TRACT: No acute change of the bowel. No bowel obstruction. No bowel wall thickening or edema. Moderate volume of stool in the colon. The appendix is not seen. Small bowel loops are normal. ABDOMINAL WALL: No significant hernia is appreciated. LYMPH NODES: Normal. VASCULAR: Atherosclerotic vascular wall calcifications of aorta and iliac vessels. PELVIC VISCERA: Unremarkable. OSSEOUS STRUCTURES: Vacuum disc phenomena at L5-S1. IMPRESSION: Distended edematous gallbladder with gallstones. Significant edema around the gallbladder extending into the pelvis. Findings are consistent with an acute cholecystitis. Assessment/Plan Assessment/Plan Syncope of unknown origin Acute versus chronic cholecystitis Leukocytosis Plan Admit to medical service for workup for complaints of dizziness IV antibiotics and IV fluid Serial abdominal exams as needed If patient's abdominal symptoms worsen laparoscopic cholecystectomy may be warranted Dr. Maki to evaluate the patient in the a.m. Consult Acknowledgment - Thank you for your consult request. AMANDA BOUDREAUXJA 01/12/17 1618: Assessment/Plan Consult Acknowledgment - Thank you for your consult request. Attending MD Review Statement Attending Statement Attending MD Statement: examined this patient, discuss w/resident/PA/AUTO TECHNICIAN, agreed w/resident/PA/AUTO TECHNICIAN, reviewed images Attending Assessment/Plan: Patient seen and examined, agree with above. Patient recently hopsitalized and discharged for syncope. She presented last night with same complaints after she passed out at home. She was found to have an elevated WBC and subsequently a CT scan was done which showed a likely cholecystitis with extensive inflammation tracking all the way down into the pelvis. Patient this time did say that she may have been having vague abdominal pain for several weeks. At this point the patient does not have severe abdominal pain and she is able to eat and drink. The degree of the cholecystitis on CT suggests a long standing process and not an acute event. Given the likelihood of a chronic cholecystits, at this time attempting a Lap Magdalena would be extremely difficult and unnecessary. Would treat the above with IV Abx. OK to advance diet. If patient does not clinically improve with IV Abx then she should get a percutaneous cholecystostomy.
--- NOTE | 2017-01-12 02:19 | NUR ---
PT RESTING ON STRETCHER, NORMAL RR NOTED.
--- NOTE | 2017-01-12 04:37 | NUR ---
PT CONTINUES TO REST ON STRETCHER. REPOSITIONED FOR COMFORT.
--- NOTE | 2017-01-12 05:09 | NUR ---
[facility]ERR[facility] NEWELL WILL SEND DOWN [facility] FOR TRANSPORT.
--- NOTE | 2017-01-12 05:09 | NUR ---
REPORT GIVEN TO MONSERRAT NEWELL ON [facility].
--- NOTE | 2017-01-12 05:19 | Admission Certification ---
Admission Certification Certification Statement - As attending physician, I certify that at the time of - admission, based on clinical presentation, severity of - symptoms, need for further diagnostic testing and - therapeutic interventions, and risk of adverse outcomes - without in-hospital treatment, in my clinical assessment, - this patient requires an acute hospital stay for a minimum - of two nights or longer. I have also considered psychsocial - factors such as support system, advanced age, financial - issues, cognitive issues, and failed out-patient treatments, - past re-admission history, safety of patient, and lack of - compliance as applicable. Specific rationale supporting this admission is: Acute cholecystitis
[2017-01-12 05:41] VITALS: BP 108/62
--- NOTE | 2017-01-12 07:37 | PN- Housestaff ---
ALBERTO KAPLAN,WINTER 01/12/17 0736: Subjective Follow-up For: acute cholecystitis mechanical fall Tele-Events Since Last Visit: no events Subjective: Patientr is complaining of mild abdominal pain. NO episodes of nv Review of Systems Constitutional: Reports: see HPI. Objective Last 24 Hrs of Vital Signs/I&O Vital Signs Date Time Temp Pulse Resp B/P Pulse O2 O2 Flow FiO2 Ox Delivery Rate 01/12 0631 98 Room Air 01/12 0541 98.8 111 12 108/62 95 Room Air 01/12 0519 99.3 100 16 126/73 95 Room Air Room Air 01/11 1903 99.1 102 18 130/73 98 Room Air 01/11 1720 97.1 96 18 125/77 98 Room Air 01/11 1532 98.4 74 18 120/60 96 Room Air Intake & Output 01/12 1600 01/12 0800 01/12 0000 Intake Total Output Total Balance Patient 160 lb Weight Physical Exam General Appearance: Alert, Oriented X3, Cooperative Skin: No Rashes HEENT: Atraumatic, PERRLA Neck: Supple, No JVD, No thryomegaly Lymphatic: Cervical nl Assessment/Plan Assessment: This is a 48-year-old female with a past medical childhood seizures, currently on carbamazepine and Depakote who presented to the [facility] for persistent abdominal pain and status post mechanical fall The patient was discharged on 01/08 after being evaliated for NV but no Fevre or chills or WBC. The patient is being treated in the hospital for the following problems 1. Status post mechanical fall 2. Abdominal pain with the radiological findings consistent with cholecystitis- ?sx started from since last discharge on 01/08. 3. History of childhood seizures Plan Continue monitoring her general medicine floor Patient is currently nothing by mouth for cholecystectomy I spoke to the surgical PA , and they recommended that the patient should be kept nothing by mouth but she is currently not on any schedule for cholecystectomy today We will do preoperative labs including CBC repeat liver function test, INR, and electrolyte panel The patient's RCR I index is low at 0.4 C/W supportive management Continue with IV fluids and IV pain medications Patient is full code dvt ppx AT ALL TIMES Problem List: 1. Leukocytosis 2. Seizure disorder Pain Ratin Pain Location: RUQ PAIN Pain Goal: Remain pain free Pain Plan: IV MORPHINE Tomorrow's Labs & Rationales: CBC AND BEP CARLOS KAPLANLARISSA 01/13/17 1303: Attending MD Review Statement Attending Statement Attending MD Statement: examined this patient, discuss w/resident/PA/FUND ACCOUNTING MANAGER, agreed w/resident/PA/FUND ACCOUNTING MANAGER, reviewed EMR data (avail) Attending Assessment/Plan: 51F PMH seizure disorder, recent fall and managed at [facility], presenting with diffuse abdominal pain, found to have acute vs chronic cholecystitis. Has been started on Unasyn and doing well. Today patient complains of diffuse abdominal pain that is improving. Afebrile, stable vitals, WBC rapidly improving, cultures negative. Plan - May be tranferred to general medicine floor - Continue Unasyn - Follow cultures - Follow ID and surgery recommendations - Clear liquid diet - Continue home medications - DVT PPx
[2017-01-12 09:08] VITALS: BP 110/62
[2017-01-12 10:15] LABS: ABSOLUTE BASOPHIL COUNT 0 /CUMM (0.0-0.2); ABSOLUTE EOSINOPHIL COUNT 0 /CUMM (0.0-0.7); ABSOLUTE GRANULOCYTE CT 9.5 /CUMM (1.4-6.5); BASOPHIL % 0.2 % (0.0-2.0); EOSINOPHIL % 0 % (0-5)
[2017-01-12 10:18] LABS: ABSOLUTE LYMPH COUNT 2.8 /CUMM (1.2-3.4); ABSOLUTE MONOCYTE COUNT 1.7 /CUMM (0.10-0.60); GRANULOCYTE % 67.5 % (42.2-75.2); MEAN CORPUSCULAR HGB 32.9 PG (27.0-31.0); MEAN CORPUSCULAR HGB CONC 33.3 G/DL (33.0-37.0); PLATELET COUNT 188 /CUMM (130-400); RBC DISTRIBUTION WIDTH 14.4 % (11.5-14.5); WHITE BLOOD CELL COUNT 14.1 /CUMM (4.8-10.8)
[2017-01-12 10:19] LABS: HEMATOCRIT 36.6 % (37-47)
[2017-01-12 10:33] LABS: PT 14.1 SEC (9.4-12.5)
--- NOTE | 2017-01-12 11:22 | Event Note ---
Event Note Event Note: Patient examined by Dr. Maki this am. Plan for now is to advance diet as tolerated, starting with clear liquid diet. Continue unasyn iv for now. If abdominal pain worsens, next step will be to consider percutaneous drainage of gall bladder. Due to the potential for surgical complications in the setting of the infective process, it is preferable at this time to manage infection empirically versus performing a cholecystectomy. Infectious disease consult has been made, senior living plan of care with regard to antibiotic therapy to be determined.
--- NOTE | 2017-01-12 12:59 | Discharge Summary ---
Visit Information Visit Dates Admission Date: 01/11/17 Discharge Date: 01/19/17 Hospital Course Course Attending Physician: LARISSA GONZALEZ MD Primary Care Physician: JANKI DUARTE MD Hospital Course: 51-year-old female with a past medical history of seizures since childhood who presented to the [facility] after having a mechanical fall and sent to the emergency department by the visiting nurses for further evaluation. The patient was complaining of mild abdominal pain and distention and further imaging and evaluation in the ED showed acute cholecystitis and gallbladder edema the patient was then admitted to general medicine floor with vitals, physical exam and labs as follows: Vitals: Tmax 99.1, mild tachycardia, HR, RR, blood pressure in acceptable range. On examination no acute distress, a O 3, neck supple, no lymphadenopathy, mucosa dry, no JVD, CVS: S1-S2, RRR, RS: Clear to auscultate bilaterally abdomen : Tenderness right upper quadrant, no guarding or rigidity, Adan's sign positive, bowel sounds present. No dependent edema, peripheral pulses and perfusion normal. Labs: WBC 17.9, glucose 140, lactate 1.2, otherwise CBC BMP LFT unremarkable. Alkaline phosphatase 49, AST 24, ALT 17. Urine positive for nitrites CT abdomen and pelvis:Distended edematous gallbladder with gallstones. Significant edema around the gallbladder extending into the pelvis. Findings are consistent with an acute cholecystitis. The patient was admitted to general medicine floor and was treated for the following problems 1. Right upper quadrant Pain with the imaging finding consistent with acute on chronic cholecystitis 2. History of childhood seizures 3. History of mechanical fall The patient was initially admitted for conservative management with IV fluids and IV antibiotics for cholecystitis she was also evaluated by the surgical staff who recommended and agreed with the conservative management for the cholecystitis.the initial plan was if If abdominal pain worsens, the patient would be a candidate for percutaneous drainage of the gallbladder. The patient was maintained on IV antibiotics . Further evaluated by the ID staff will recommended . In the setting of acute infection it was decided that the patient should not go for cholecystectomy at this point, and a cholecystostomy tube was placed on . This was discussed with Dr. Maki who recommends that drain be kept in place for six weeks. She was intially placed on IV unasyn for 1 week, this was changed to augmentin which will continue until 01/22/17. Discussed in detail with patient, no allergy to amoxicillin, had diarrhea in the past. Asked to use probiotics while taking medication. She has been instructed to f/u with Dr. Maki as outpatient for definitive treatment of cholecystitis. We did not change patient's antiseizure medications and set at the home medication dose. Allergies: Coded Allergies: amoxicillin (Intermediate, GI DISTRESS 01/07/17) Significant Procedures: PROCEDURES: 1. LIMITED SONOGRAM OF THE RIGHT UPPER ABDOMINAL QUADRANT. 2. PLACEMENT OF AN 8 FR LOCKING ALL-PURPOSE DRAINAGE CATHETER INTO THE GALLBLADDER. 3. TUBE CHOLECYSTOGRAM. CLINICAL HISTORY: 51-year-old female with acute cholecystitis. Per discussion with the surgical service, the patient will be treated with antibiotics and had subsequent cholecystectomy following antibiotic treatment. A cholecystostomy tube is requested for decompression. The patient had a right upper quadrant ultrasound performed 01/14/2017 and a HIDA scan which were both consistent with the history of acute cholecystitis. PHYSICIANS: Juan R Reid MD MEDICATIONS: Fentanyl 50 mcg and Lidocaine 1% 10 mL SQ. Antibiotics: None. For additional details, please see nursing flow sheet. COMPLICATIONS: None. ESTIMATED BLOOD LOSS: < 5 mL SPECIMENS: None. CONTRAST: 10 mL Optiray 320 FLUOROSCOPY TIME: 0.4 minutes PROCEDURE NOTE: The procedure, risks, benefits, and alternatives were carefully explained to the patient and written informed consent was obtained. The patient was placed supine on the fluoroscopy table. A time out was performed. Prior to prepping the patient, a limited sonogram of the right upper quadrant was performed to localize the gallbladder and chose an appropriate access. The right upper abdomen was prepped and draped in usual sterile fashion. After choosing subcostal approach, the skin and subcutaneous tissues were anesthetized with Lidocaine. Under direct ultrasound guidance, an 8 Martiniquais Saucedo-Garcia catheter was advanced via transhepatic approach into the gallbladder. The catheter tip was directly visualized within the gallbladder lumen. The catheter was advanced off the needle into the gallbladder lumen. There was immediate return of thick bile. A specimen was obtained for microbiology. 10 mL of contrast was injected into the tube. This showed several filling defects within the gallbladder consistent with gallstones, there was nonvisualization of the cystic duct. The catheter was sutured to the skin with an 0-silk suture. FINDINGS: 1. Distended gallbladder on ultrasound, filled with stones. 2. Aspiration of thick bile upon access of gallbladder. 3. Cystic duct obstruction. Common bile duct not visualized. IMPRESSION: Successful placement of an 8 Fr cholecystostomy catheter. PLAN: The patient was stable after the procedure and was transferred to the floor. The tube should be open to external gravity drainage via drainage bag. The tube should be flushed twice daily with 10 mL normal saline. The drain needs to remain in place for at least 6 weeks to give time for the tract to mature or until definitive cholecystectomy is performed. Pertinent Lab Results: Laboratory Tests 01/18 01/17 0605 1130 Chemistry Sodium (137 - 145 mmol/L) 143 141 Potassium (3.5 - 5.1 mmol/L) 4.4 4.3 Chloride (98 - 107 mmol/L) 103 102 Carbon Dioxide (22 - 30 mmol/L) 35 H 34 H Anion Gap (5 - 16) 6 5 BUN (7 - 17 mg/dL) < 2 L < 2 L Creatinine (0.5 - 1.0 mg/dL) 0.6 0.6 Estimated GFR (>60 ml/min) > 60 > 60 BUN/Creatinine Ratio (7 - 25 %) 3.3 L 3.3 L Magnesium (1.6 - 2.3 mg/dL) 2.1 Total Bilirubin (0.2 - 1.3 mg/dL) 0.3 Direct Bilirubin (< 0.4 mg/dL) 0.3 AST (14 - 36 U/L) 26 ALT (9 - 52 U/L) 40 Alkaline Phosphatase (<127 U/L) 81 Total Protein (6.3 - 8.2 g/dL) 5.0 L Albumin (3.5 - 5.0 g/dL) 2.3 L Hematology CBC w Diff NO MAN DIFF REQ NO MAN DIFF REQ WBC (4.8 - 10.8 /CUMM) 5.0 3.5 L RBC (4.20 - 5.40 /CUMM) 2.75 L 2.91 L Hgb (12.0 - 16.0 G/DL) 9.0 L 9.5 L Hct (37 - 47 %) 27.2 L 28.6 L MCV (81.0 - 99.0 FL) 99.0 98.4 MCH (27.0 - 31.0 PG) 32.8 H 32.6 H RDW (11.5 - 14.5 %) 14.8 H 14.7 H Plt Count (130 - 400 /CUMM) 296 279 MPV (7.4 - 10.4 FL) 6.3 L 6.2 L Gran % (42.2 - 75.2 %) 19.2 L 26.9 L Lymphocytes % (20.5 - 51.1 %) 70.3 H 58.5 H Monocytes % (1.7 - 9.3 %) 9.8 H 13.5 H Eosinophils % (0 - 5 %) 0.3 0.5 Basophils % (0.0 - 2.0 %) 0.4 0.6 Absolute Granulocytes (1.4 - 6.5 /CUMM) 1.0 L 0.9 L Absolute Lymphocytes (1.2 - 3.4 /CUMM) 3.5 H 2.0 Absolute Monocytes (0.10 - 0.60 /CUMM) 0.5 0.5 Absolute Eosinophils (0.0 - 0.7 /CUMM) 0 0 Absolute Basophils (0.0 - 0.2 /CUMM) 0 0 PUBS MCHC (33.0 - 37.0 G/DL) 33.1 33.2 Vital Signs Date Time Temp Pulse Resp B/P Pulse O2 O2 Flow FiO2 Ox Delivery Rate 01/19 0641 97.6 69 18 118/60 96 Room Air 03/ 2256 98.8 84 20 133/75 95 Room Air 03/06 1600 Room Air 03/ 1526 98.4 80 20 108/64 98 Room Air Intake & Output / 1600 03/07 0800 03/ 0000 Intake Total 240 970 Output Total 500 807 Balance -260 163 Intake, IV 10 Intake, Oral 240 960 Output, 7 Drainage Output, Urine 500 800 Laboratory Tests 01/12/17 0952: Anion Gap 9, Estimated GFR > 60, BUN/Creatinine Ratio 18.3, Total Bilirubin 1.0, Direct Bilirubin 0.7 H, AST 41 H, ALT 23, Alkaline Phosphatase 59, Total Protein 5.5 L, Albumin 2.8 L, PT 14.1 H, INR 1.35 H, CBC w Diff NO MAN DIFF REQ, RBC 3.70 L, MCV 99.0, MCH 32.9 H, RDW 14.4, MPV 8.0, Gran % 67.5, Lymphocytes % 20.1 L, Monocytes % 12.2 H, Eosinophils % 0, Basophils % 0.2, Absolute Granulocytes 9.5 H, Absolute Lymphocytes 2.8, Absolute Monocytes 1.7 H, Absolute Eosinophils 0, Absolute Basophils 0, PUBS MCHC 33.3 01/12/17 0256: Lactic Acid 1.2 01/12/17 0210: Lactic Acid Cancelled 01/11/17 1850: Urine Color ALISHA, Urine Clarity CLEAR, Urine pH 6.0, Ur Specific [place] >= 1.030, Urine Protein 100 H, Urine Ketones TRACE H, Urine Nitrite POS H, Urine Bilirubin NEG@ICTO, Urine Urobilinogen 1.0, Ur Leukocyte Esterase NEG, Ur Microscopic SEDIMENT EXAMINED, Urine WBC RARE, Ur Epithelial Cells RARE, Urine Bacteria MOD H, Urine Mucus RARE, Urine Hemoglobin NEG, Urine Glucose NEG 01/11/17 1640: Anion Gap 13, Estimated GFR > 60, BUN/Creatinine Ratio 16.7, Glucose 140 H, Calcium 9.5, Total Bilirubin 1.0, AST 24, ALT 17, Alkaline Phosphatase 49, Troponin I < 0.01, Total Protein 6.9, Albumin 3.8, Globulin 3.1, Albumin/ Globulin Ratio 1.2, Total Beta HCG NEGATIVE, CBC w Diff MAN DIFF ORDERED, RBC 4.50, MCV 99.1 H, MCH 32.6 H, RDW 14.3, MPV 7.8, Gran % 73.8, Lymphocytes % 12.7 L, Monocytes % 13.0 H, Eosinophils % 0, Basophils % 0.5, Absolute Granulocytes 13.2 H, Segmented Neutrophils 64, Band Neutrophils 7 H, Absolute Lymphocytes 2.3, Lymphocytes 16 L, Monocytes 13 H, Absolute Monocytes 2.3 H, Absolute Eosinophils 0, Absolute Basophils 0.1, Platelet Estimate VERIFIED BY SMEAR, Normocytic RBCs VERIFIED, Normochromic RBCs VERIFIED, PUBS MCHC 32.9 L, Fld Total RBCs Counted 100, Valproic Acid 79.5 Microbiology 01/12 0319 BLOOD: Blood Culture - RECD 01/12 256 BLOOD: Blood Culture - RECD 01/12 0024 URINE ROUT: Urine Culture - COLB Laboratory Tests 01/12 01/12 01/12 0952 0256 0210 Chemistry Sodium (137 - 145 mmol/L) 139 Potassium (3.5 - 5.1 mmol/L) 3.6 Chloride (98 - 107 mmol/L) 101 Carbon Dioxide (22 - 30 mmol/L) 29 Anion Gap (5 - 16) 9 BUN (7 - 17 mg/dL) 11 Creatinine (0.5 - 1.0 mg/dL) 0.6 Estimated GFR (>60 ml/min) > 60 BUN/Creatinine Ratio (7 - 25 %) 18.3 Lactic Acid (0.7 - 2.1 mmol/L) 1.2 Cancelled Total Bilirubin (0.2 - 1.3 mg/dL) 1.0 Direct Bilirubin (< 0.4 mg/dL) 0.7 H AST (14 - 36 U/L) 41 H ALT (9 - 52 U/L) 23 Alkaline Phosphatase (<127 U/L) 59 Total Protein (6.3 - 8.2 g/dL) 5.5 L Albumin (3.5 - 5.0 g/dL) 2.8 L Coagulation PT (9.4 - 12.5 SEC) 14.1 H INR (0.90 - 1.19) 1.35 H Hematology CBC w Diff NO MAN DIFF REQ WBC (4.8 - 10.8 /CUMM) 14.1 H RBC (4.20 - 5.40 /CUMM) 3.70 L Hgb (12.0 - 16.0 G/DL) 12.2 Hct (37 - 47 %) 36.6 L MCV (81.0 - 99.0 FL) 99.0 MCH (27.0 - 31.0 PG) 32.9 H RDW (11.5 - 14.5 %) 14.4 Plt Count (130 - 400 /CUMM) 188 MPV (7.4 - 10.4 FL) 8.0 Gran % (42.2 - 75.2 %) 67.5 Lymphocytes % (20.5 - 51.1 %) 20.1 L Monocytes % (1.7 - 9.3 %) 12.2 H Eosinophils % (0 - 5 %) 0 Basophils % (0.0 - 2.0 %) 0.2 Absolute Granulocytes (1.4 - 6.5 /CUMM) 9.5 H Absolute Lymphocytes (1.2 - 3.4 /CUMM) 2.8 Absolute Monocytes (0.10 - 0.60 /CUMM) 1.7 H Absolute Eosinophils (0.0 - 0.7 /CUMM) 0 Absolute Basophils (0.0 - 0.2 /CUMM) 0 PUBS MCHC (33.0 - 37.0 G/DL) 33.3 01/11 1850 Urines Urine Color (YEL,AMB,STR) ALISHA Urine Clarity (CLEAR) CLEAR Urine pH (5.0 - 8.0) 6.0 Ur Specific [place] (1.001 - 1.035) >= 1.030 Urine Protein (NEG,<30 MG/DL) 100 H Urine Ketones (NEG) TRACE H Urine Nitrite (NEG) POS H Urine Bilirubin (NEG) NEG@ICTO Urine Urobilinogen (0.1 - 1.0 EU/dl) 1.0 Ur Leukocyte Esterase (NEG) NEG Ur Microscopic SEDIMENT EXAMINED Urine WBC (0 - 2 /HPF) RARE Ur Epithelial Cells (NONE,FEW) RARE Urine Bacteria (NEG/NONE) MOD H Urine Mucus (FEW,NONE) RARE Urine Hemoglobin (NEG) NEG Urine Glucose (N MG/DL) NEG 01/11 1640 Chemistry Sodium (137 - 145 mmol/L) 137 Potassium (3.5 - 5.1 mmol/L) 4.5 Chloride (98 - 107 mmol/L) 96 L Carbon Dioxide (22 - 30 mmol/L) 28 Anion Gap (5 - 16) 13 BUN (7 - 17 mg/dL) 10 Creatinine (0.5 - 1.0 mg/dL) 0.6 Estimated GFR (>60 ml/min) > 60 BUN/Creatinine Ratio (7 - 25 %) 16.7 Glucose (65 - 99 mg/dL) 140 H Calcium (8.4 - 10.2 mg/dL) 9.5 Total Bilirubin (0.2 - 1.3 mg/dL) 1.0 AST (14 - 36 U/L) 24 ALT (9 - 52 U/L) 17 Alkaline Phosphatase (<127 U/L) 49 Troponin I (< 0.11 ng/ml) < 0.01 Total Protein (6.3 - 8.2 g/dL) 6.9 Albumin (3.5 - 5.0 g/dL) 3.8 Globulin (1.9 - 4.2 gm/dL) 3.1 Albumin/Globulin Ratio (1.1 - 2.2 %) 1.2 Total Beta HCG (NEGATIVE) NEGATIVE Hematology CBC w Diff MAN DIFF ORDERED WBC (4.8 - 10.8 /CUMM) 17.9 H RBC (4.20 - 5.40 /CUMM) 4.50 Hgb (12.0 - 16.0 G/DL) 14.7 Hct (37 - 47 %) 44.6 MCV (81.0 - 99.0 FL) 99.1 H MCH (27.0 - 31.0 PG) 32.6 H RDW (11.5 - 14.5 %) 14.3 Plt Count (130 - 400 /CUMM) 209 MPV (7.4 - 10.4 FL) 7.8 Gran % (42.2 - 75.2 %) 73.8 Lymphocytes % (20.5 - 51.1 %) 12.7 L Monocytes % (1.7 - 9.3 %) 13.0 H Eosinophils % (0 - 5 %) 0 Basophils % (0.0 - 2.0 %) 0.5 Absolute Granulocytes (1.4 - 6.5 /CUMM) 13.2 H Segmented Neutrophils (42.2 - 75.2 %) 64 Band Neutrophils (0.0 - 5.0 %) 7 H Absolute Lymphocytes (1.2 - 3.4 /CUMM) 2.3 Lymphocytes (20.5 - 51.1 %) 16 L Monocytes (1.7 - 9.3 %) 13 H Absolute Monocytes (0.10 - 0.60 /CUMM) 2.3 H Absolute Eosinophils (0.0 - 0.7 /CUMM) 0 Absolute Basophils (0.0 - 0.2 /CUMM) 0.1 Platelet Estimate (ADEQUATE) VERIFIED BY SMEAR Normocytic RBCs VERIFIED Normochromic RBCs VERIFIED PUBS MCHC (33.0 - 37.0 G/DL) 32.9 L Other Body Source Fld Total RBCs Counted (%) 100 Toxicology Valproic Acid (50 - 120 ug/mL) 79.5 Disposition Summary Disposition Principal Diagnosis: Acute chronic cholecystitis Additional Diagnosis: History of seizures Status post mechanical fall Discharge Disposition: home or self care Discharge Instructions General Discharge Information Code Status: Full Code Patient's Diet: As tolerated Patient's Activity: as tolerated Follow-Up Instructions/Appts: Please follow-up with your primary care physician in one week Please follow-up with the surgical staff for suspicion of cholecystectomy Medications at Discharge Discharge Medications: Continue taking these medications: [Progesterone] 0.5 Tablet ORAL THREE TIMES DAILY Comments: Last Taken: 01/10/17 Time: 10:30AM Carbamazapine (Carbatrol) 200 MG CPMP.12HR 2 Tablet ORAL TWICE DAILY Qty = 120 Comments: Last Taken: 01/10/17 Time: 10:30AM Divalproex Sodium (Depakote ER) 250 MG TAB.ER.24H 1 Tablet ORAL 1000 Qty = 30 Comments: Last Taken: Time: 10:30AM Divalproex Sodium (Divalproex Sodium) 500 MG TABLET.DR 1 Tablet ORAL 2200 Qty = 30 Comments: Last Taken: 01/09/17 Time: 10PM Start taking the following new medications: Amoxicillin/Clavulanate Potass (Amox-Clav 875-125 MG Tablet) 875 MG-125 MG TABLET 875 Milligram ORAL EVERY 12 HOURS Days = 4 No Refills Instructions: Please take antibotic until 01/22/17 and then stop Copies To: FELICIA KAPLAN,JANKI Morrow
--- NOTE | 2017-01-12 15:47 | Cons- Infect Disease ---
General Information and HPI Consulting Request Date of Consult: 01/12/17 Requested By: LARISSA GONZALEZ MD Reason for Consult: Rule out cholecystitis Source of Information: patient, family, old records History of Present Illness: This is a 51-year-old woman with a history of complex partial seizures since , hospitalized 4 days prior to admission after a fall, resulting in a laceration above her right eye, with a one-month history of cough, occasionally productive, several week history of ataxia and increasing weakness and a one week history of nausea and vomiting following treatment for a urinary tract infection, which she was not able to complete secondary to these symptoms, found to be afebrile with a normal white blood cell count and negative urine culture, discharged after a decrease in her seizure medication, with tenderness noted on her abdominal exam on the day of discharge, readmitted on January 11, the day after discharge, after another fall at home. On admission she was afebrile. Laboratory data revealed a white blood cell count of 18,000, with 64 segs and 7 bands, BUN/creatinine 10 and 0.6, with normal liver enzymes. Urinalysis rare WBCs. Chest x-ray was negative. CT of the abdomen and pelvis revealed a distended gallbladder with edema around the gallbladder, with multiple gallstones with slightly dense rims, and with edema around the head of the pancreas. She was begun on Unasyn and has remained afebrile. She continues to complain of diffuse abdominal discomfort but has had no further nausea or vomiting. She denies any urinary symptoms. She does report a persistent cough but denies any chest pain or shortness of breath. Allergies/Medications Allergies: Coded Allergies: amoxicillin (Intermediate, GI DISTRESS 01/07/17) Home Med List: Carbamazapine (Carbatrol) 200 MG CPMP.12HR 2 TAB PO BID Seizures Divalproex Sodium (Depakote ER) 250 MG TAB.ER.24H 1 TAB PO 1000 Seizures Divalproex Sodium 500 MG TABLET.DR 1 TAB PO 2200 Seizure [Progesterone] 0.5 TAB PO TID UNKNOWN (Reported) Past History Travel History Traveled to [place] past 21 day No Medical History Neurological: EPILEPSY EENT: NONE Cardiovascular: NONE Respiratory: NONE Gastrointestinal: constipation Hepatic: NONE Renal: NONE Musculoskeletal: NONE Psychiatric: NONE Endocrine: NONE Blood Disorders: NONE Cancer(s): 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 Psychosocial History Where Do You Live? Home Who Do You Live With? self Services at Home: None Primary Language: [place]de[place] Smoking Status: Never Smoked ETOH Use: denies use Illicit Drug Use: denies illicit drug use Functional Ability ADLs Independent: dressing, eating, toileting, bathing. IADLs Independent: shopping, housework, finances, food prep, telephone, transportation , medication admin. Review of Systems Review of Systems Constitutional: Denies: chills, fever. Cardiovascular: Denies: chest pain. GI: Reports: constipation. Genitourinary: Reports: no symptoms. Neurological/Psychological: Reports: ataxia, tremors. All Other Systems: Reviewed and Negative Exam & Diagnostic Data Last 24 Hrs of Vital Signs/I&O Vital Signs Date Time Temp Pulse Resp B/P Pulse O2 O2 Flow FiO2 Ox Delivery Rate 01/12 1417 Room Air Room Air 01/12 0908 99.4 100 14 110/62 95 Room Air 01/12 0800 Room Air Room Air 01/12 0631 98 Room Air 01/12 0541 98.8 111 12 108/62 95 Room Air 01/12 0519 99.3 100 16 126/73 95 Room Air Room Air 01/11 1903 99.1 102 18 130/73 98 Room Air 01/11 1720 97.1 96 18 125/77 98 Room Air Intake & Output 01/12 1600 01/12 0800 01/12 0000 Intake Total 1105 Output Total Balance 1105 Intake, IV 625 Intake, Oral 480 Patient 160 lb Weight Physical Exam Other Physical Findings: She is awake and alert in no acute distress. She is afebrile. Skin reveals no rash. HEENT exam is negative. Neck is supple with no adenopathy. Lungs decreased breath sounds at the right base. Heart regular rhythm with no murmur. Abdomen is soft, tender on palpation diffusely, perhaps increased in the right upper quadrant, with no guarding or rebound; positive bowel sounds. Back no CVA tenderness. Extremities no cyanosis, clubbing or edema. Neuro is without focality. Last 24 Hours of Lab Results: Laboratory Tests 01/12 01/12 01/12 0952 0256 0210 Chemistry Sodium (137 - 145 mmol/L) 139 Potassium (3.5 - 5.1 mmol/L) 3.6 Chloride (98 - 107 mmol/L) 101 Carbon Dioxide (22 - 30 mmol/L) 29 Anion Gap (5 - 16) 9 BUN (7 - 17 mg/dL) 11 Creatinine (0.5 - 1.0 mg/dL) 0.6 Estimated GFR (>60 ml/min) > 60 BUN/Creatinine Ratio (7 - 25 %) 18.3 Lactic Acid (0.7 - 2.1 mmol/L) 1.2 Cancelled Total Bilirubin (0.2 - 1.3 mg/dL) 1.0 Direct Bilirubin (< 0.4 mg/dL) 0.7 H AST (14 - 36 U/L) 41 H ALT (9 - 52 U/L) 23 Alkaline Phosphatase (<127 U/L) 59 Total Protein (6.3 - 8.2 g/dL) 5.5 L Albumin (3.5 - 5.0 g/dL) 2.8 L Coagulation PT (9.4 - 12.5 SEC) 14.1 H INR (0.90 - 1.19) 1.35 H Hematology CBC w Diff NO MAN DIFF REQ WBC (4.8 - 10.8 /CUMM) 14.1 H RBC (4.20 - 5.40 /CUMM) 3.70 L Hgb (12.0 - 16.0 G/DL) 12.2 Hct (37 - 47 %) 36.6 L MCV (81.0 - 99.0 FL) 99.0 MCH (27.0 - 31.0 PG) 32.9 H RDW (11.5 - 14.5 %) 14.4 Plt Count (130 - 400 /CUMM) 188 MPV (7.4 - 10.4 FL) 8.0 Gran % (42.2 - 75.2 %) 67.5 Lymphocytes % (20.5 - 51.1 %) 20.1 L Monocytes % (1.7 - 9.3 %) 12.2 H Eosinophils % (0 - 5 %) 0 Basophils % (0.0 - 2.0 %) 0.2 Absolute Granulocytes (1.4 - 6.5 /CUMM) 9.5 H Absolute Lymphocytes (1.2 - 3.4 /CUMM) 2.8 Absolute Monocytes (0.10 - 0.60 /CUMM) 1.7 H Absolute Eosinophils (0.0 - 0.7 /CUMM) 0 Absolute Basophils (0.0 - 0.2 /CUMM) 0 PUBS MCHC (33.0 - 37.0 G/DL) 33.3 01/11 1850 Urines Urine Color (YEL,AMB,STR) ALISHA Urine Clarity (CLEAR) CLEAR Urine pH (5.0 - 8.0) 6.0 Ur Specific [place] (1.001 - 1.035) >= 1.030 Urine Protein (NEG,<30 MG/DL) 100 H Urine Ketones (NEG) TRACE H Urine Nitrite (NEG) POS H Urine Bilirubin (NEG) NEG@ICTO Urine Urobilinogen (0.1 - 1.0 EU/dl) 1.0 Ur Leukocyte Esterase (NEG) NEG Ur Microscopic SEDIMENT EXAMINED Urine WBC (0 - 2 /HPF) RARE Ur Epithelial Cells (NONE,FEW) RARE Urine Bacteria (NEG/NONE) MOD H Urine Mucus (FEW,NONE) RARE Urine Hemoglobin (NEG) NEG Urine Glucose (N MG/DL) NEG 01/11 1640 Chemistry Sodium (137 - 145 mmol/L) 137 Potassium (3.5 - 5.1 mmol/L) 4.5 Chloride (98 - 107 mmol/L) 96 L Carbon Dioxide (22 - 30 mmol/L) 28 Anion Gap (5 - 16) 13 BUN (7 - 17 mg/dL) 10 Creatinine (0.5 - 1.0 mg/dL) 0.6 Estimated GFR (>60 ml/min) > 60 BUN/Creatinine Ratio (7 - 25 %) 16.7 Glucose (65 - 99 mg/dL) 140 H Calcium (8.4 - 10.2 mg/dL) 9.5 Total Bilirubin (0.2 - 1.3 mg/dL) 1.0 AST (14 - 36 U/L) 24 ALT (9 - 52 U/L) 17 Alkaline Phosphatase (<127 U/L) 49 Troponin I (< 0.11 ng/ml) < 0.01 Total Protein (6.3 - 8.2 g/dL) 6.9 Albumin (3.5 - 5.0 g/dL) 3.8 Globulin (1.9 - 4.2 gm/dL) 3.1 Albumin/Globulin Ratio (1.1 - 2.2 %) 1.2 Total Beta HCG (NEGATIVE) NEGATIVE Hematology CBC w Diff MAN DIFF ORDERED WBC (4.8 - 10.8 /CUMM) 17.9 H RBC (4.20 - 5.40 /CUMM) 4.50 Hgb (12.0 - 16.0 G/DL) 14.7 Hct (37 - 47 %) 44.6 MCV (81.0 - 99.0 FL) 99.1 H MCH (27.0 - 31.0 PG) 32.6 H RDW (11.5 - 14.5 %) 14.3 Plt Count (130 - 400 /CUMM) 209 MPV (7.4 - 10.4 FL) 7.8 Gran % (42.2 - 75.2 %) 73.8 Lymphocytes % (20.5 - 51.1 %) 12.7 L Monocytes % (1.7 - 9.3 %) 13.0 H Eosinophils % (0 - 5 %) 0 Basophils % (0.0 - 2.0 %) 0.5 Absolute Granulocytes (1.4 - 6.5 /CUMM) 13.2 H Segmented Neutrophils (42.2 - 75.2 %) 64 Band Neutrophils (0.0 - 5.0 %) 7 H Absolute Lymphocytes (1.2 - 3.4 /CUMM) 2.3 Lymphocytes (20.5 - 51.1 %) 16 L Monocytes (1.7 - 9.3 %) 13 H Absolute Monocytes (0.10 - 0.60 /CUMM) 2.3 H Absolute Eosinophils (0.0 - 0.7 /CUMM) 0 Absolute Basophils (0.0 - 0.2 /CUMM) 0.1 Platelet Estimate (ADEQUATE) VERIFIED BY SMEAR Normocytic RBCs VERIFIED Normochromic RBCs VERIFIED PUBS MCHC (33.0 - 37.0 G/DL) 32.9 L Other Body Source Fld Total RBCs Counted (%) 100 Toxicology Valproic Acid (50 - 120 ug/mL) 79.5 Last 24 Hours of Emanuel Results: Blood cultures January 12 so far negative Diagnostic Data Recent Imaging Findings: Chest x-ray negative. CT of the abdomen and pelvis without contrast January 11 revealed a distended gallbladder with edema around the gallbladder, with multiple gallstones with slightly dense rims, and with edema around the head of the pancreas. Assessment/Plan Assessment/Plan Impression: This is a 51-year-old woman with a seizure disorder since , hospitalized 4 days prior to admission after a fall at home, attributed to medication toxicity, with complaints of nausea and vomiting, attributed to antibiotic toxicity, and with temperatures and white blood cell count normal on that hospitalization, readmitted just 1 day after discharge after another fall, found to be afebrile but with a leukocytosis and with CT scan of the abdomen and pelvis suggesting acute cholecystitis. Her clinical picture and imaging studies suggest acute cholecystitis, and it would appear that prompt drainage/decompression would be optimal. Discussion regarding placement of a cholecystostomy tube is noted, but , if feasible, a cholecystectomy would be preferable. The Unasyn should cover most of the likely pathogens and can be continued pending decision regarding further intervention. The etiology of her chronic cough is unclear and may warrant further evaluation if it persists. Suggestion: 1. Would consider HIDA scan and, possibly, right upper quadrant ultrasound, to confirm the diagnosis of acute cholecystitis 2. Surgical follow-up regarding possible cholecystectomy 3. Continue Unasyn pending above Consult Acknowledgment - Thank you for your consult request.
[2017-01-12 17:05] VITALS: BP 96/56
[2017-01-12 23:30] VITALS: BP 110/68
--- NOTE | 2017-01-13 07:46 | PN- General Surgery ---
See Addendum Subjective Subjective: Awake, alert no specific complaints overnight Has some abdominal pain, doesn't seem to be associated with drinking - clear liquids yesterday. Pain explained as 2/10, central to lower abdomen, not associated with nausea Objective Vital Signs and I&Os Vital Signs Date Time Temp Pulse Resp B/P Pulse O2 O2 Flow FiO2 Ox Delivery Rate 01/13 0000 Room Air 01/12 2330 98.5 110 18 110/68 95 Room Air 01/12 1705 98.7 107 16 96/56 94 Room Air 01/12 1417 Room Air Room Air 01/12 0908 99.4 100 14 110/62 95 Room Air 01/12 0800 Room Air Room Air Intake & Output 01/13 0800 01/13 0000 01/12 1600 01/12 0800 01/12 0000 01/11 1600 Intake Total 1250 1250 1105 0 Output Total Balance 1250 1250 1105 0 Intake, IV 1000 600 625 Intake, Oral 250 650 480 0 Number 0 0 Bowel Movements Patient 160 lb 145 lb Weight Physical Exam: vss, afebrile currently tmax 99.4 General: alert and oriented times three Chest: clear anteriorly Abd: soft, nondistended, good bs, tender to moderate palpation at mid upper and lower into the pelvic area. No rebound Assessment/Plan Assessment/Plan 51 yo female admitted after a fall, vertigo with abd pain and wbc 17k fu labs this morning hepatic function panel added further recommendations to follow
[2017-01-13 07:59] LABS: ABSOLUTE BASOPHIL COUNT 0 /CUMM (0.0-0.2); ABSOLUTE EOSINOPHIL COUNT 0 /CUMM (0.0-0.7); ABSOLUTE GRANULOCYTE CT 3.8 /CUMM (1.4-6.5); ABSOLUTE LYMPH COUNT 2.7 /CUMM (1.2-3.4); BASOPHIL % 0.1 % (0.0-2.0); EOSINOPHIL % 0.1 % (0-5); GRANULOCYTE % 50.5 % (42.2-75.2); MEAN CORPUSCULAR HGB 32.5 PG (27.0-31.0); MEAN CORPUSCULAR HGB CONC 32.7 G/DL (33.0-37.0); MEAN CORPUSCULAR VOLUME 99.5 FL (81.0-99.0); MEAN PLATELET VOLUME 8.1 FL (7.4-10.4); PLATELET COUNT 147 /CUMM (130-400); RBC DISTRIBUTION WIDTH 14.7 % (11.5-14.5); RED BLOOD CELL CT 2.91 /CUMM (4.20-5.40); WHITE BLOOD CELL COUNT 7.5 /CUMM (4.8-10.8)
[2017-01-13 08:04] VITALS: BP 143/70
--- NOTE | 2017-01-13 08:08 | PN- Housestaff ---
JERMAN KAPLAN,NATHAN 01/13/17 0756: Subjective Follow-up For: Acute cholecystitis Mechanical fall Complaints: Complains of abdominal discomfort. Subjective: Reports sleeping well overnight. No complaints. Tolerating liquid diet, denies nausea, vomiting or abdominal pain. Review of Systems Constitutional: Reports: see HPI. Objective Last 24 Hrs of Vital Signs/I&O Vital Signs Date Time Temp Pulse Resp B/P Pulse O2 O2 Flow FiO2 Ox Delivery Rate 01/13 0000 Room Air 01/12 2330 98.5 110 18 110/68 95 Room Air 01/12 1705 98.7 107 16 96/56 94 Room Air 01/12 1417 Room Air Room Air 01/12 0908 99.4 100 14 110/62 95 Room Air 01/12 0800 Room Air Room Air Intake & Output 01/13 0801/13 0000 01/12 1600 Intake Total 1250 1250 1105 Output Total Balance 1250 1250 1105 Intake, IV 1000 600 625 Intake, Oral 250 650 480 Number 0 0 Bowel Movements Physical Exam General Appearance: Alert, Oriented X3, Cooperative Skin: No Rashes HEENT: Atraumatic, PERRLA, EOMI Neck: Supple, No JVD Cardiovascular: Regular Rate, Normal S1, Normal S2, No Murmurs Lungs: Clear to Auscultation, Normal Air Movement Abdomen: Normal Bowel Sounds, Soft, abdominal tenderness in lower quadrants Neurological: Normal Speech Extremities: No Edema, Normal Pulses Current Medications: Current Medications Sig/Mariano Start time Last Medication Dose Route Stop Time Status Admin Acetaminophen 650 MG Q6P PRN 01/12 0030 AC PO Acetaminophen/ 1 TAB Q6P PRN 01/12 0030 AC Hydrocodone Bitart PO Ampicillin Sodium/ 3,000 MG Q6H 01/12 1000 AC 01/13 Sulbactam Sodium IV 0418 Sodium Chloride 100 ML Ampicillin Sodium/ 3,000 MG Q6 01/12 0600 DC Sulbactam Sodium IV Sodium Chloride 100 ML Carbamazepine 400 MG BID 01/12 0026 AC 01/12 PO 2153 Divalproex Sodium 250 MG 1000 01/12 1000 AC 01/12 PO 0932 Divalproex Sodium 500 MG AT BEDTIME 01/12 0030 AC 01/12 PO 2153 Heparin Sodium 5,000 UNIT Q8 01/12 0022 AC 01/13 (Porcine) SC 0540 Influenza Virus 0.5 ML ONCE ONE 01/12 0800 DC 01/12 Vaccine IM 01/12 0801 0936 Morphine Sulfate 2 MG Q4P PRN 01/12 003 AC 01/12 IV 2025 Ondansetron HCl 4 MG Q6P PRN 01/12 003 AC 01/12 IV 2026 Patient Medication 1 ED ONE ONE 01/12 1400 DC Teaching ED 01/12 1401 Patient Own 0.375 UNIT TID 01/12 1000 01/12 Medication PO 2154 Sodium Chloride 1,000 ML .Q8H 01/11 2315 AC 01/12 IV 2155 Last 24 Hrs of Lab/Emanuel Results Last 24 Hrs of Labs/Mics: Laboratory Tests 01/13/17 0640: Anion Gap 7, Estimated GFR > 60, BUN/Creatinine Ratio 13.3, Total Bilirubin 0.8, Direct Bilirubin 0.6 H, AST 131 H, ALT 71 H, Alkaline Phosphatase 93, Total Protein 4.5 L, Albumin 2.2 L, CBC w Diff Pending, WBC Pending, RBC Pending, Hgb Pending, Hct Pending, MCV Pending, MCH Pending, RDW Pending, Plt Count Pending, MPV Pending, PUBS MCHC Pending 01/12/17 0952: Anion Gap 9, Estimated GFR > 60, BUN/Creatinine Ratio 18.3, Total Bilirubin 1.0, Direct Bilirubin 0.7 H, AST 41 H, ALT 23, Alkaline Phosphatase 59, Total Protein 5.5 L, Albumin 2.8 L, PT 14.1 H, INR 1.35 H, CBC w Diff NO MAN DIFF REQ, RBC 3.70 L, MCV 99.0, MCH 32.9 H, RDW 14.4, MPV 8.0, Gran % 67.5, Lymphocytes % 20.1 L, Monocytes % 12.2 H, Eosinophils % 0, Basophils % 0.2, Absolute Granulocytes 9.5 H, Absolute Lymphocytes 2.8, Absolute Monocytes 1.7 H, Absolute Eosinophils 0, Absolute Basophils 0, PUBS MCHC 33.3 Assessment/Plan Assessment: 48-year-old female with a past medical childhood seizures, currently on carbamazepine and Depakote who presented to the [facility] for persistent abdominal pain, status post mechanical fall She was discharged on 01/08 after being evaluated for N/V but no Fevers, chills or WBC. She is being treated for the following problems: 1. Status post mechanical fall 2. Abdominal pain with the radiological findings consistent with cholecystitis- ?sx started from since last discharge on 01/08. 3. History of childhood seizures Plan Continue monitoring her general medicine floor AM labs are pending, will f/u on results. She has been started on clear liquid diet and seems to be tolerating this well, however continues to c/o abdominal discomfort. Will continue unasyn for now. continue with IV fluids and IV pain medications continue home dose of depakote and carbamazepine for seizures, no reported events overnight Patient is full code dvt ppx AT ALL TIMES Problem List: 1. Leukocytosis 2. Seizure disorder Pain Ratin Pain Location: abdominal pain Pain Goal: Pain 4 or less Pain Plan: continue current management Tomorrow's Labs & Rationales: will f/u am labs DVT/Prophylaxis: pharmacological LARISSA GONZALEZ MD 01/13/17 1258: Attending MD Review Statement Attending Statement Attending MD Statement: examined this patient, discuss w/resident/PA/ORTHOPEDIC NURSE PRACTITIONER, agreed w/resident/PA/ORTHOPEDIC NURSE PRACTITIONER, reviewed EMR data (avail) Attending Assessment/Plan: 51F PMH seizure disorder, recent fall and [facility] at [facility], presenting with diffuse abdominal pain, found to have acute vs chronic cholecystitis. Has been started on Unasyn and doing well. Today patient complains of diffuse abdominal pain that is improving. Afebrile, stable vitals, WBC rapidly improving, cultures negative. Plan - May be tranferred to general medicine floor - Continue Unasyn - Follow cultures - Follow ID and surgery recommendations - Clear liquid diet - Continue home medications - DVT PPx
[2017-01-13 08:59] LABS: HEMATOCRIT 28.9 % (37-47)
--- NOTE | 2017-01-13 12:12 | PN- Infect Dx ---
Subjective Subjective: Afebrile. She continues to complain of abdominal pain. She has had no further nausea and is tolerating clear liquids. She continues to complain of a cough and notes increased abdominal pain with coughing. Objective Last 24 Hrs of Vital Signs/I&O Vital Signs Date Time Temp Pulse Resp B/P Pulse O2 O2 Flow FiO2 Ox Delivery Rate 01/13 0804 98.0 56 15 143/70 94 Room Air 01/13 0000 Room Air 01/12 2330 98.5 110 18 110/68 95 Room Air 01/12 1705 98.7 107 16 96/56 94 Room Air 01/12 1417 Room Air Room Air Intake & Output 01/13 1600 01/13 0800 01/13 0000 Intake Total 1250 1250 Output Total Balance 1250 1250 Intake, IV 1000 600 Intake, Oral 250 650 Number 0 0 Bowel Movements Physical Exam Other Physical Findings: She is quite lethargic but arousable Lungs decreased breath sounds both bases Heart regular rhythm with no murmur Abdomen is soft, tender on palpation diffusely, with no guarding or rebound, positive bowel sounds Extremities no cyanosis, clubbing or edema Results Last 24 Hours of Lab Results: Laboratory Tests 01/13 0640 Chemistry Sodium (137 - 145 mmol/L) 139 Potassium (3.5 - 5.1 mmol/L) 3.8 Chloride (98 - 107 mmol/L) 100 Carbon Dioxide (22 - 30 mmol/L) 32 H Anion Gap (5 - 16) 7 BUN (7 - 17 mg/dL) 8 Creatinine (0.5 - 1.0 mg/dL) 0.6 Estimated GFR (>60 ml/min) > 60 BUN/Creatinine Ratio (7 - 25 %) 13.3 Total Bilirubin (0.2 - 1.3 mg/dL) 0.8 Direct Bilirubin (< 0.4 mg/dL) 0.6 H AST (14 - 36 U/L) 131 H ALT (9 - 52 U/L) 71 H Alkaline Phosphatase (<127 U/L) 93 Total Protein (6.3 - 8.2 g/dL) 4.5 L Albumin (3.5 - 5.0 g/dL) 2.2 L Hematology CBC w Diff NO MAN DIFF REQ WBC (4.8 - 10.8 /CUMM) 7.5 RBC (4.20 - 5.40 /CUMM) 2.91 L Hgb (12.0 - 16.0 G/DL) 9.5 L Hct (37 - 47 %) 28.9 L MCV (81.0 - 99.0 FL) 99.5 H MCH (27.0 - 31.0 PG) 32.5 H RDW (11.5 - 14.5 %) 14.7 H Plt Count (130 - 400 /CUMM) 147 MPV (7.4 - 10.4 FL) 8.1 Gran % (42.2 - 75.2 %) 50.5 Lymphocytes % (20.5 - 51.1 %) 36.4 Monocytes % (1.7 - 9.3 %) 12.9 H Eosinophils % (0 - 5 %) 0.1 Basophils % (0.0 - 2.0 %) 0.1 Absolute Granulocytes (1.4 - 6.5 /CUMM) 3.8 Absolute Lymphocytes (1.2 - 3.4 /CUMM) 2.7 Absolute Monocytes (0.10 - 0.60 /CUMM) 1.0 H Absolute Eosinophils (0.0 - 0.7 /CUMM) 0 Absolute Basophils (0.0 - 0.2 /CUMM) 0 PUBS MCHC (33.0 - 37.0 G/DL) 32.7 L Last 24 Hours of Emanuel Results: Blood cultures January 12 negative Assessment/Plan Impression: Improved with temperatures remaining normal and white blood cell count now normal on Unasyn Day 2 of treatment for presumed cholecystitis, but diffuse abdominal pain persists and liver enzymes are now increased. Discussed with Surgery yesterday regarding further workup (such as HIDA scan) but it was felt that this could be deferred, with no plans for intervention, given suspicion that this was a more chronic process. Her lethargy may be medication induced secondary to morphine and/or her antiseizure meds. Suggestion: 1. Would follow exam closely as diet is advanced 2. Further imaging, for example right upper quadrant ultrasound, HIDA scan or repeat CT of the abdomen and pelvis based on her clinical picture 3. Continue Unasyn
[2017-01-13 15:18] VITALS: BP 104/64
[2017-01-14 00:39] VITALS: BP 102/60
--- NOTE | 2017-01-14 07:50 | PN- Housestaff ---
JERMAN KAPLAN,NATHAN 01/14/17 0738: Subjective Follow-up For: Suspected cholecystitis Mechanical fall Complaints: abdominal discomfort Tele-Events Since Last Visit: Off Telemetry Subjective: Seen and examined at bedside. Sitting comfortably in bed, tolerating liquid diet. Diet was advanced last night, c/o abdominal pain with solids, mac and cheese whic was 8/10. This morning pain has reduced to 3/10. Review of Systems Constitutional: Reports: see HPI. Objective Last 24 Hrs of Vital Signs/I&O Vital Signs Date Time Temp Pulse Resp B/P Pulse O2 O2 Flow FiO2 Ox Delivery Rate 01/14 0039 98.8 87 18 102/60 93 Room Air 01/13 1518 99.1 90 18 104/64 95 Room Air 01/13 0804 98.0 56 15 143/70 94 Room Air Intake & Output 01/14 0800 01/14 0000 01/13 1600 Intake Total 1150 1240 1720 Output Total 800 Balance 1150 1240 920 Intake, IV 1100 1000 1000 Intake, Oral 50 240 720 Output, Urine 800 Physical Exam General Appearance: Alert, Oriented X3, Cooperative, No Acute Distress Skin: No Rashes, No Breakdown HEENT: EOMI (stitches over right eye) Neck: Supple, No JVD Lymphatic: Cervical nl Cardiovascular: Regular Rate, Normal S1, Normal S2 Lungs: Clear to Auscultation, Normal Air Movement Abdomen: Normal Bowel Sounds, Soft, diffuse tenderness Neurological: Normal Speech Extremities: No Edema, Normal Pulses Current Medications: Current Medications Sig/Mariano Start time Last Medication Dose Route Stop Time Status Admin Acetaminophen 650 MG Q6P PRN 01/12 0030 AC PO Acetaminophen/ 1 TAB Q6P PRN 01/12 0030 AC Hydrocodone Bitart PO Ampicillin Sodium/ 3,000 MG Q6H 01/12 1000 AC 01/14 Sulbactam Sodium IV 0323 Sodium Chloride 100 ML Carbamazepine 400 MG BID 01/12 0026 AC 01/13 PO 2116 Divalproex Sodium 250 MG 1000 01/12 1000 AC 01/13 PO 0957 Divalproex Sodium 500 MG AT BEDTIME 01/12 0030 AC 01/13 PO 2116 Docusate Sodium 100 MG DAILY NEEDED PRN 01/14 0745 AC PO Heparin Sodium 5,000 UNIT Q8 01/12 0022 AC 01/14 (Porcine) SC 0538 Morphine Sulfate 2 MG Q4P PRN 01/12 0030 AC 01/14 IV 0057 Ondansetron HCl 4 MG Q6P PRN 01/12 0030 AC 01/12 IV 2026 Patient Own 0.375 UNIT TID 01/12 1000 AC 01/13 Medication PO 211 Polyethylene Glycol 17 GM DAILY 01/14 1000 AC PO Sodium Chloride 1,000 ML .Q8H 01/11 2315 AC 01/14 IV 0554 Last 24 Hrs of Lab/Emanuel Results Last 24 Hrs of Labs/Mics: Laboratory Tests 01/14/17 0645: Sodium Pending, Potassium Pending, Chloride Pending, Carbon Dioxide Pending, Anion Gap Pending, BUN Pending, Creatinine Pending, BUN/Creatinine Ratio Pending , CBC w Diff Pending, WBC Pending, RBC Pending, Hgb Pending, Hct Pending, MCV Pending, MCH Pending, RDW Pending, Plt Count Pending, MPV Pending, PUBS MCHC Pending Assessment/Plan Assessment: 48-year-old female with a past medical childhood seizures, currently on carbamazepine and Depakote who presented to the [facility] for persistent abdominal pain, status post mechanical fall She was discharged on 01/08 after being evaluated for N/V but no Fevers, chills or WBC. She is being treated for the following problems: 1. Status post mechanical fall 2. Abdominal pain with the radiological findings consistent with cholecystitis- ?sx started from since last discharge on 01/08. 3. History of childhood seizures Plan Continue monitoring her general medicine floor AM labs are pending, will f/u on results. Cultures are pending. She has been started on low fat diet c/o abdominal discomfort. She has not had a bowel movement in the past two days and is on pain medication. I will discuss with dietary to please give low fat diet, avoid mac and cheese. will start bowel regimen. Liver enzymes elevated yesterday, will f/u on labs Will continue unasyn for now. continue with IV fluids and IV pain medications continue home dose of depakote and carbamazepine for seizures, no reported events overnight Patient is full code dvt ppx AT ALL TIMES Problem List: 1. Leukocytosis 2. Seizure disorder Pain Ratin Pain Location: abdominal pain Pain Goal: Pain 4 or less Pain Plan: continue current regimen start bowel regimen Tomorrow's Labs & Rationales: gary GOZNALEZ MD,LARISSA 01/14/17 1321: Attending MD Review Statement Attending Statement Attending MD Statement: examined this patient, discuss w/resident/PA/TRASHMAN, agreed w/resident/PA/TRASHMAN, reviewed EMR data (avail) Attending Assessment/Plan: 51F PMH seizure disorder, recent fall and managed at [facility], presenting with diffuse abdominal pain, found to have acute vs chronic cholecystitis. Has been started on Unasyn and doing well. Patient reports unchanged pain since admission. Her pain worsened acutely after eating last night. She has tenderness to the RUQ and periumbilically. Afebrile , stable vitals. Patient has not walked as she is afraid she will have vertigo, as she did a few days ago which caused her to fall and hit her head. No BM for 2 days. Plan - Obtain Abdominal ultrasound and HIDA scan - Start bowel regimen - May be tranferred to general medicine floor - Continue Unasyn - Follow cultures - Follow ID and surgery recommendations - NPO for now until scans are complete - Continue home medications - PT eval for vertigo - DVT PPx
[2017-01-14 08:06] LABS: ABSOLUTE BASOPHIL COUNT 0 /CUMM (0.0-0.2); ABSOLUTE EOSINOPHIL COUNT 0 /CUMM (0.0-0.7); ABSOLUTE GRANULOCYTE CT 1.6 /CUMM (1.4-6.5); ABSOLUTE LYMPH COUNT 2.4 /CUMM (1.2-3.4); ABSOLUTE MONOCYTE COUNT 0.4 /CUMM (0.10-0.60); BASOPHIL % 0.3 % (0.0-2.0); EOSINOPHIL % 0.3 % (0-5); MEAN CORPUSCULAR HGB 33.3 PG (27.0-31.0); MEAN CORPUSCULAR HGB CONC 33.6 G/DL (33.0-37.0); MEAN CORPUSCULAR VOLUME 99.1 FL (81.0-99.0); MEAN PLATELET VOLUME 7.8 FL (7.4-10.4); PLATELET COUNT 178 /CUMM (130-400); RBC DISTRIBUTION WIDTH 14.5 % (11.5-14.5); RED BLOOD CELL CT 2.93 /CUMM (4.20-5.40); WHITE BLOOD CELL COUNT 4.4 /CUMM (4.8-10.8)
[2017-01-14 08:19] VITALS: BP 100/60
--- NOTE | 2017-01-14 11:17 | PN- Infect Dx ---
Subjective Subjective: Afebrile. She continues to complain of abdominal pain and reports no improvement since admission. She has had no further nausea or vomiting and is tolerating a regular diet. She continues to complain of cough. She apparently had an episode of hematuria this morning. Objective Last 24 Hrs of Vital Signs/I&O Vital Signs Date Time Temp Pulse Resp B/P Pulse O2 O2 Flow FiO2 Ox Delivery Rate 01/14 0819 97.8 87 18 100/60 92 Room Air 01/14 0039 98.8 87 18 102/60 93 Room Air 01/13 1518 99.1 90 18 104/64 95 Room Air Intake & Output 01/14 1600 01/14 0800 01/14 0000 Intake Total 1150 1240 Output Total Balance 1150 1240 Intake, IV 1100 1000 Intake, Oral 50 240 Physical Exam Other Physical Findings: She appears comfortable in no acute distress Lungs decreased breath at the right base Heart regular rhythm with no murmur Abdomen soft, tender on palpation diffusely, with no guarding or rebound, positive bowel sounds Extremities no cyanosis, clubbing or edema Results Last 24 Hours of Lab Results: Laboratory Tests 01/14 01/14 0905 0645 Chemistry Sodium (137 - 145 mmol/L) 142 Potassium (3.5 - 5.1 mmol/L) 3.3 L Chloride (98 - 107 mmol/L) 103 Carbon Dioxide (22 - 30 mmol/L) 33 H Anion Gap (5 - 16) 6 BUN (7 - 17 mg/dL) 3 L Creatinine (0.5 - 1.0 mg/dL) 0.6 Estimated GFR (>60 ml/min) > 60 BUN/Creatinine Ratio (7 - 25 %) 5.0 L Total Bilirubin (0.2 - 1.3 mg/dL) 0.8 Direct Bilirubin (< 0.4 mg/dL) 0.6 H AST (14 - 36 U/L) 77 H ALT (9 - 52 U/L) 68 H Alkaline Phosphatase (<127 U/L) 151 H Total Protein (6.3 - 8.2 g/dL) 4.9 L Albumin (3.5 - 5.0 g/dL) 2.4 L Hematology CBC w Diff NO MAN DIFF REQ WBC (4.8 - 10.8 /CUMM) 4.4 L RBC (4.20 - 5.40 /CUMM) 2.93 L Hgb (12.0 - 16.0 G/DL) 9.8 L Hct (37 - 47 %) 29.0 L MCV (81.0 - 99.0 FL) 99.1 H MCH (27.0 - 31.0 PG) 33.3 H RDW (11.5 - 14.5 %) 14.5 Plt Count (130 - 400 /CUMM) 178 MPV (7.4 - 10.4 FL) 7.8 Gran % (42.2 - 75.2 %) 35.0 L Lymphocytes % (20.5 - 51.1 %) 55.0 H Monocytes % (1.7 - 9.3 %) 9.4 H Eosinophils % (0 - 5 %) 0.3 Basophils % (0.0 - 2.0 %) 0.3 Absolute Granulocytes (1.4 - 6.5 /CUMM) 1.6 Absolute Lymphocytes (1.2 - 3.4 /CUMM) 2.4 Absolute Monocytes (0.10 - 0.60 /CUMM) 0.4 Absolute Eosinophils (0.0 - 0.7 /CUMM) 0 Absolute Basophils (0.0 - 0.2 /CUMM) 0 PUBS MCHC (33.0 - 37.0 G/DL) 33.6 Urines Urine Color (YEL,AMB,STR) YEL Urine Clarity (CLEAR) CLEAR Urine pH (5.0 - 8.0) 6.0 Ur Specific [place] (1.001 - 1.035) 1.010 Urine Protein (NEG,<30 MG/DL) NEG Urine Ketones (NEG) NEG Urine Nitrite (NEG) NEG Urine Bilirubin (NEG) NEG Urine Urobilinogen (0.1 - 1.0 EU/dl) 1.0 Ur Leukocyte Esterase (NEG) NEG Ur Microscopic EXAM NOT REQUIRED Urine Hemoglobin (NEG) NEG Urine Glucose (N MG/DL) NEG / 0600 Chemistry Total Bilirubin Cancelled Direct Bilirubin Cancelled AST Cancelled ALT Cancelled Alkaline Phosphatase Cancelled Total Protein Cancelled Albumin Cancelled Last 24 Hours of Emanuel Results: Blood cultures January 12 negative Urine culture January 14 pending Sputum culture January 14 pending Assessment/Plan Impression: Improved with temperatures and white blood cell count normal on Unasyn Day 3 of treatment for presumed cholecystitis, but diffuse abdominal pain persists and liver enzymes are now elevated, with alk phosphatase increased, though AST/ALT have decreased from yesterday. It appears that she still has evidence of acute cholecystitis/possible cholangitis and feel that further evaluation is warranted. The etiology of her cough remains unclear and it may represent diaphragmatic irritation. She reportedly had hematuria earlier today with no urinary symptoms reported. Suggestion: 1. Would obtain a right upper quadrant ultrasound and consider HIDA scan 2. GI evaluation 3. Continue Unasyn
--- NOTE | 2017-01-14 15:10 | ULTRASOUND REPORT ---
EXAMINATION: US ABDOMEN LIMITED CLINICAL INFORMATION: Abdominal pain.. COMPARISON: CT from 01/11/2017 TECHNIQUE: Real-time imaging of the right upper quadrant abdominal viscera. FINDINGS: PANCREAS: The pancreatic head and body are unremarkable. The pancreatic tail is obscured by gas. LIVER: Normal. The liver demonstrates normal size, contour and echogenicity. No focal lesion or intrahepatic biliary duct dilatation. GALLBLADDER: The gallbladder contains a prominent gallstone measuring 1.9 cm. There is echogenic bile present. There is borderline gallbladder wall thickening, measuring 0.3 cm. Pericholecystic fluid is noted. The technologist reports a positive sonographic Adan's sign. COMMON BILE DUCT: Normal in caliber measuring 0.4 cm in diameter. RIGHT KIDNEY: Mild fullness of the renal pelvis.. No renal calculi or focal parenchymal lesions. The kidney measures 10.4 cm in maximum dimension. FREE FLUID: None. IMPRESSION: Abnormal gallbladder. Cholelithiasis and gallbladder sludge. Pericholecystic fluid with borderline wall thickening and focal tenderness. These findings are most consistent with acute cholecystitis.
--- NOTE | 2017-01-14 16:55 | NUCLEAR MEDICINE REPORT ---
EXAMINATION: NM HIDA SCAN CLINICAL INFORMATION: Right upper quadrant pain evaluate for acute cholecystitis COMPARISON: Ultrasound same day TECHNIQUE: 5 mCi mebrofenin. Imaging over the right upper quadrant. 80 minutes. FINDINGS: Uptake by the liver is normal. Ductal activity by 5 minutes. Bowel activity by 10 minutes. No evidence of gallbladder activity by 80 minutes. IMPRESSION: Nonvisualization of the gallbladder by 80 minutes. Findings may be consistent with nonpatency of the cystic duct. Correlation needs to be made clinically. Differential would include chronic cholecystitis, hyperalimentation or prolonged fasting would also be in the differential.
[2017-01-14 17:30] VITALS: BP 116/70
[2017-01-14 22:27] VITALS: BP 110/64
--- NOTE | 2017-01-14 22:42 | NUR ---
NURSING NOTE; LATE ENTRY; PT TRANSFERRED TO ROOM 204-01 AT 2200 VIA DISTRIBUTION. PT BELONGINGS AND MEDICATIONS TRANSFERRED WITH HER. PT HAS NO COMPLAINTS OF PAIN OR DISCOMFORT AT THIS TIME. PT ORIENTED TO ROOM AND CALL LEMUS. PLEASE SEE ASSESSMENT. WILL CONTINUE TO MONITOR.
[2017-01-15 07:31] VITALS: BP 86/60
[2017-01-15 07:46] VITALS: BP 104/68
--- NOTE | 2017-01-15 08:20 | PN- Housestaff ---
JERMAN KAPLAN,NATHAN 01/15/17 0810: Subjective Follow-up For: Acute Choleystitis Mechanical Fall Complaints: right sided abdominal pain Subjective: Seen examined at bedside. Sitting comfortably in bed, tolerating solids. Pain persists over right upper quadrant, but is better than yesterday Review of Systems Constitutional: Reports: see HPI. Objective Last 24 Hrs of Vital Signs/I&O Vital Signs Date Time Temp Pulse Resp B/P Pulse O2 O2 Flow FiO2 Ox Delivery Rate 01/15 0746 104/68 01/15 0731 98.9 77 18 86/60 96 Room Air 01/14 2227 99.0 87 18 110/64 95 01/14 1730 98.2 77 18 116/70 96 Room Air 01/14 1600 Room Air 01/14 0819 97.8 87 18 100/60 92 Room Air Intake & Output 01/15 1600 01/15 0800 01/15 0000 Intake Total 1000 1600 Output Total Balance 1000 1600 Intake, IV 1000 1000 Intake, Oral 600 Number 1 Bowel Movements Physical Exam General Appearance: Alert, Oriented X3, Cooperative, No Acute Distress Skin: No Rashes, No Breakdown HEENT: PERRLA, EOMI, stitches in place over right eye Neck: Supple, No JVD Lymphatic: Cervical nl Cardiovascular: Regular Rate, Normal S1, Normal S2 Lungs: Clear to Auscultation, Normal Air Movement Abdomen: Normal Bowel Sounds, Soft, right upper quadrant tenderness with +angeles sign Neurological: Normal Speech Extremities: No Edema, Normal Pulses Assessment/Plan Assessment: 51-year-old female with a past medical childhood seizures, currently on carbamazepine and Depakote who presented to the [facility] for persistent abdominal pain, status post mechanical fall. She was discharged on 01/08 after being evaluated for N/V but no Fevers, chills or WBC. She is being treated for the following problems: 1. Status post mechanical fall 2. Abdominal pain with the radiological findings consistent with cholecystitis- ?sx started from since last discharge on 01/08. 3. History of childhood seizures Plan Continue monitoring her general medicine floor AM labs are pending, will f/u on results. Cultures are pending. She has been started on low fat diet c/o abdominal discomfort. Imaging obtained yesterday re-demonstrate acute cholecystitis. This has been relayed by surgical pa to surgeon. Liver enzymes elevated yesterday, along with alkaline phosphatase. this mornings labs are pending, will f/u Will continue unasyn for now. continue with IV fluids and IV pain medications continue home dose of depakote and carbamazepine for seizures, no reported events overnight Patient is full code dvt ppx AT ALL TIMES Problem List: 1. Seizure disorder 2. Acute cholecystitis Pain Ratin Pain Location: abdominal pain Pain Goal: Pain 4 or less Pain Plan: will discuss with surgery Tomorrow's Labs & Rationales: cbc bep JOE ARANA MD 01/15/17 1742: Attending MD Review Statement Attending Statement Attending MD Statement: examined this patient, discuss w/resident/PA/DAYCARE WORKER, agreed w/resident/PA/DAYCARE WORKER, reviewed EMR data (avail), discussed with nursing, reviewed images, amended to note Attending Assessment/Plan: The patient was seen and discussed with house staff, surgery, and interventional radiology. Still symptomatic with evidence of acute cholecystitis on Hepatobiliary Scan/US. Will have choledochocystostomy done by IR today. Continue IV Unasyn at present. Will need 2 weeks of antibiotics when discharged as per surgery.
[2017-01-15 08:24] LABS: ABSOLUTE BASOPHIL COUNT 0 /CUMM (0.0-0.2); ABSOLUTE EOSINOPHIL COUNT 0 /CUMM (0.0-0.7); ABSOLUTE GRANULOCYTE CT 1.2 /CUMM (1.4-6.5); ABSOLUTE MONOCYTE COUNT 0.4 /CUMM (0.10-0.60); BASOPHIL % 0.6 % (0.0-2.0); EOSINOPHIL % 0.2 % (0-5); GRANULOCYTE % 32.8 % (42.2-75.2); HEMATOCRIT 26.5 % (37-47); MEAN CORPUSCULAR HGB CONC 33.7 G/DL (33.0-37.0); MEAN CORPUSCULAR VOLUME 97.8 FL (81.0-99.0); PLATELET COUNT 200 /CUMM (130-400); RBC DISTRIBUTION WIDTH 14.3 % (11.5-14.5); RED BLOOD CELL CT 2.71 /CUMM (4.20-5.40); WHITE BLOOD CELL COUNT 3.5 /CUMM (4.8-10.8)
--- NOTE | 2017-01-15 10:24 | PN- General Surgery ---
Subjective Subjective: Reports continued intermittent abdominal discomfort and intermittent nausea. Toleratering low fat diet, although her pain seems to worsen after eating. No requiring narcotics. HIDA and ultrasound reviewed by yesterday. Objective Vital Signs and I&Os Vital Signs Date Time Temp Pulse Resp B/P Pulse O2 O2 Flow FiO2 Ox Delivery Rate 01/15 0746 104/68 01/15 0731 98.9 77 18 86/60 96 Room Air 01/14 2227 99.0 87 18 110/64 95 01/14 1730 98.2 77 18 116/70 96 Room Air 01/14 1600 Room Air Intake & Output 01/15 1600 01/15 0800 01/15 0000 01/14 1600 01/14 0800 01/14 0000 Intake Total 1000 1600 1200 1150 1240 Output Total Balance 1000 1600 1200 1150 1240 Intake, IV 1000 1000 1000 1100 1000 Intake, Oral 600 200 50 240 Number 1 Bowel Movements Patient 150 lb Weight Physical Exam: General - alert. comfortable. no acute distress. Abdomen - soft. mildly tender along right side and uriel-umbilical. no acute abdominal findings. Current Medications: Current Medications Sig/Mariano Start time Last Medication Dose Route Stop Time Status Admin Acetaminophen 650 MG Q6P PRN 01/12 0030 AC PO Acetaminophen/ 1 TAB Q6P PRN 01/12 0030 AC Hydrocodone Bitart PO Ampicillin Sodium/ 3,000 MG Q6H 01/12 1000 AC 01/15 Sulbactam Sodium IV 1016 Sodium Chloride 100 ML Carbamazepine 400 MG BID 01/12 0026 AC 01/15 PO 1017 Divalproex Sodium 250 MG 1000 01/12 1000 AC 01/15 PO 1017 Divalproex Sodium 500 MG AT BEDTIME 01/12 0030 AC 01/14 PO 2113 Docusate Sodium 100 MG DAILY NEEDED PRN 01/14 0745 AC PO Heparin Sodium 5,000 UNIT Q8 01/12 0022 AC 01/15 (Porcine) SC 0632 Morphine Sulfate 2 MG Q4P PRN 01/12 0030 AC 01/14 IV 0057 Ondansetron HCl 4 MG Q6P PRN 01/12 0030 AC 01/12 IV 2027 Patient Medication 1 ED ONE ONE 01/14 1400 DC Teaching ED 01/14 1401 Patient Own 0.375 UNIT TID 01/12 1000 AC 01/15 Medication PO 1018 Polyethylene Glycol 17 GM DAILY 01/14 1000 AC PO Potassium Chloride 40 MEQ ONCE ONE 01/14 1500 DC 01/14 PO 01/14 1501 1737 Sodium Chloride 1,000 ML .Q8H 01/11 2315 AC 01/15 IV 0208 Results Last 48 Hours of Labs: Laboratory Tests 01/15 01/14 0620 0905 Chemistry Sodium (137 - 145 mmol/L) 143 Potassium (3.5 - 5.1 mmol/L) 3.4 L Chloride (98 - 107 mmol/L) 103 Carbon Dioxide (22 - 30 mmol/L) 35 H Anion Gap (5 - 16) 5 BUN (7 - 17 mg/dL) < 2 L Creatinine (0.5 - 1.0 mg/dL) 0.5 Estimated GFR (>60 ml/min) > 60 BUN/Creatinine Ratio (7 - 25 %) 4.0 L Total Bilirubin (0.2 - 1.3 mg/dL) 0.4 Direct Bilirubin (< 0.4 mg/dL) 0.4 AST (14 - 36 U/L) 46 H ALT (9 - 52 U/L) 51 Alkaline Phosphatase (<127 U/L) 135 H Total Protein (6.3 - 8.2 g/dL) 4.6 L Albumin (3.5 - 5.0 g/dL) 2.2 L Hematology CBC w Diff NO MAN DIFF REQ WBC (4.8 - 10.8 /CUMM) 3.5 L RBC (4.20 - 5.40 /CUMM) 2.71 L Hgb (12.0 - 16.0 G/DL) 8.9 L Hct (37 - 47 %) 26.5 L MCV (81.0 - 99.0 FL) 97.8 MCH (27.0 - 31.0 PG) 33.0 H RDW (11.5 - 14.5 %) 14.3 Plt Count (130 - 400 /CUMM) 200 MPV (7.4 - 10.4 FL) 7.0 L Gran % (42.2 - 75.2 %) 32.8 L Lymphocytes % (20.5 - 51.1 %) 55.8 H Monocytes % (1.7 - 9.3 %) 10.6 H Eosinophils % (0 - 5 %) 0.2 Basophils % (0.0 - 2.0 %) 0.6 Absolute Granulocytes (1.4 - 6.5 /CUMM) 1.2 L Absolute Lymphocytes (1.2 - 3.4 /CUMM) 2.0 Absolute Monocytes (0.10 - 0.60 /CUMM) 0.4 Absolute Eosinophils (0.0 - 0.7 /CUMM) 0 Absolute Basophils (0.0 - 0.2 /CUMM) 0 PUBS MCHC (33.0 - 37.0 G/DL) 33.7 Urines Urine Color (YEL,AMB,STR) YEL Urine Clarity (CLEAR) CLEAR Urine pH (5.0 - 8.0) 6.0 Ur Specific [place] (1.001 - 1.035) 1.010 Urine Protein (NEG,<30 MG/DL) NEG Urine Ketones (NEG) NEG Urine Nitrite (NEG) NEG Urine Bilirubin (NEG) NEG Urine Urobilinogen (0.1 - 1.0 EU/dl) 1.0 Ur Leukocyte Esterase (NEG) NEG Ur Microscopic EXAM NOT REQUIRED Urine Hemoglobin (NEG) NEG Urine Glucose (N MG/DL) NEG 01/14 01/14 0645 0600 Chemistry Sodium (137 - 145 mmol/L) 142 Potassium (3.5 - 5.1 mmol/L) 3.3 L Chloride (98 - 107 mmol/L) 103 Carbon Dioxide (22 - 30 mmol/L) 33 H Anion Gap (5 - 16) 6 BUN (7 - 17 mg/dL) 3 L Creatinine (0.5 - 1.0 mg/dL) 0.6 Estimated GFR (>60 ml/min) > 60 BUN/Creatinine Ratio (7 - 25 %) 5.0 L Total Bilirubin (0.2 - 1.3 mg/dL) 0.8 Cancelled Direct Bilirubin (< 0.4 mg/dL) 0.6 H Cancelled AST (14 - 36 U/L) 77 H Cancelled ALT (9 - 52 U/L) 68 H Cancelled Alkaline Phosphatase (<127 U/L) 151 H Cancelled Total Protein (6.3 - 8.2 g/dL) 4.9 L Cancelled Albumin (3.5 - 5.0 g/dL) 2.4 L Cancelled Hematology CBC w Diff NO MAN DIFF REQ WBC (4.8 - 10.8 /CUMM) 4.4 L RBC (4.20 - 5.40 /CUMM) 2.93 L Hgb (12.0 - 16.0 G/DL) 9.8 L Hct (37 - 47 %) 29.0 L MCV (81.0 - 99.0 FL) 99.1 H MCH (27.0 - 31.0 PG) 33.3 H RDW (11.5 - 14.5 %) 14.5 Plt Count (130 - 400 /CUMM) 178 MPV (7.4 - 10.4 FL) 7.8 Gran % (42.2 - 75.2 %) 35.0 L Lymphocytes % (20.5 - 51.1 %) 55.0 H Monocytes % (1.7 - 9.3 %) 9.4 H Eosinophils % (0 - 5 %) 0.3 Basophils % (0.0 - 2.0 %) 0.3 Absolute Granulocytes (1.4 - 6.5 /CUMM) 1.6 Absolute Lymphocytes (1.2 - 3.4 /CUMM) 2.4 Absolute Monocytes (0.10 - 0.60 /CUMM) 0.4 Absolute Eosinophils (0.0 - 0.7 /CUMM) 0 Absolute Basophils (0.0 - 0.2 /CUMM) 0 PUBS MCHC (33.0 - 37.0 G/DL) 33.6 Assessment/Plan Assessment/Plan This 51 year old admitted for syncope reports abdominal pain and has imaging suggesting acute vs chronic cholecystitis, but apparently CT scan findings concerning with respect to edema extending from gallbladder to pelvis - which is why is suggesting discharge with antibiotics or purse percutaneous drainage if felt necessary please call if there are any further questions regarding his decision or treatment cell #
--- NOTE | 2017-01-15 12:36 | PN- Infect Dx ---
Subjective Subjective: Afebrile. She notes some improvement in her abdominal pain but did note 1 loose bowel movement yesterday. She has been tolerating a diet. She continues to complain of a cough, occasionally productive of yellow sputum. She has had no further hematuria and denies any dysuria. Objective Last 24 Hrs of Vital Signs/I&O Vital Signs Date Time Temp Pulse Resp B/P Pulse O2 O2 Flow FiO2 Ox Delivery Rate 01/15 0746 104/68 01/15 0731 98.9 77 18 86/60 96 Room Air 01/14 2227 99.0 87 18 110/64 95 01/14 1730 98.2 77 18 116/70 96 Room Air 01/14 1600 Room Air Intake & Output 01/15 1600 01/15 0800 01/15 0000 Intake Total 1000 1600 Output Total Balance 1000 1600 Intake, IV 1000 1000 Intake, Oral 600 Number 1 Bowel Movements Physical Exam Other Physical Findings: She appears comfortable in no acute distress Lungs crackles at the right base Heart regular rhythm with no murmur Abdomen soft, mild tenderness on palpation diffusely, decreased from previous exam, with no guarding or rebound, with positive bowel sounds Back no CVA tenderness Extremities no cyanosis, clubbing or edema Results Last 24 Hours of Lab Results: Laboratory Tests 01/15 0620 Chemistry Sodium (137 - 145 mmol/L) 143 Potassium (3.5 - 5.1 mmol/L) 3.4 L Chloride (98 - 107 mmol/L) 103 Carbon Dioxide (22 - 30 mmol/L) 35 H Anion Gap (5 - 16) 5 BUN (7 - 17 mg/dL) < 2 L Creatinine (0.5 - 1.0 mg/dL) 0.5 Estimated GFR (>60 ml/min) > 60 BUN/Creatinine Ratio (7 - 25 %) 4.0 L Total Bilirubin (0.2 - 1.3 mg/dL) 0.4 Direct Bilirubin (< 0.4 mg/dL) 0.4 AST (14 - 36 U/L) 46 H ALT (9 - 52 U/L) 51 Alkaline Phosphatase (<127 U/L) 135 H Total Protein (6.3 - 8.2 g/dL) 4.6 L Albumin (3.5 - 5.0 g/dL) 2.2 L Hematology CBC w Diff NO MAN DIFF REQ WBC (4.8 - 10.8 /CUMM) 3.5 L RBC (4.20 - 5.40 /CUMM) 2.71 L Hgb (12.0 - 16.0 G/DL) 8.9 L Hct (37 - 47 %) 26.5 L MCV (81.0 - 99.0 FL) 97.8 MCH (27.0 - 31.0 PG) 33.0 H RDW (11.5 - 14.5 %) 14.3 Plt Count (130 - 400 /CUMM) 200 MPV (7.4 - 10.4 FL) 7.0 L Gran % (42.2 - 75.2 %) 32.8 L Lymphocytes % (20.5 - 51.1 %) 55.8 H Monocytes % (1.7 - 9.3 %) 10.6 H Eosinophils % (0 - 5 %) 0.2 Basophils % (0.0 - 2.0 %) 0.6 Absolute Granulocytes (1.4 - 6.5 /CUMM) 1.2 L Absolute Lymphocytes (1.2 - 3.4 /CUMM) 2.0 Absolute Monocytes (0.10 - 0.60 /CUMM) 0.4 Absolute Eosinophils (0.0 - 0.7 /CUMM) 0 Absolute Basophils (0.0 - 0.2 /CUMM) 0 PUBS MCHC (33.0 - 37.0 G/DL) 33.7 Last 24 Hours of Emanuel Results: Sputum culture January 14 mixed pastor with scant growth of yeast Urine culture January 14 negative Blood cultures 2 January 12 remain negative Recent Imaging Studies: Right upper quadrant ultrasound January 14 reveals cholelithiasis with borderline gallbladder wall thickening, pericholecystic fluid and a positive Adan sign; no intrahepatic biliary ductal dilatation HIDA scan January 14 nonvisualization of the gallbladder Assessment/Plan Impression: Overall improved with temperatures and white blood cell count normal and with decreased abdominal tenderness on Unasyn Day 4 of treatment for cholecystitis, felt by surgery to be subacute, but with HIDA scan and ultrasound suggesting an acute process. She may be a candidate for intervention, for example cholecystostomy, if no plans for cholecystectomy. Her liver enzymes are decreasing, suggesting the possibility that she has passed a stone. The etiology of her cough remains unclear and it may represent diaphragmatic irritation. Suggestion: 1. GI evaluation 2. Stool C. difficile if diarrhea recurs 3. Further evaluation of her cough, for example CT of the chest, if it persists 4. Continue Unasyn
[2017-01-15 14:40] VITALS: BP 112/60
--- NOTE | 2017-01-15 15:28 | NUR ---
NURSING NOTE: PT LEFT FLOOR VIA STRETCHER WITH DISTRIBUTION FOR DRAIN PLACEMENT TO GALLBLADDER, PT AWAKE, A/OX3, ROOM AIR, IVF PER MD ORDER. NPO SINCE AFTER BREAKFAST. PRE PROCEDURE CHECKILST COMPLETE, STAMPER IN CHART, REPORT GIVEN TO NEXT SHIFT RN. LABELS FOR FLUID SENT IN CHART. AWAIT RETUREN TO FLOOR.
--- NOTE | 2017-01-15 17:07 | NUR ---
1641 PATIENT BACK ON THE FLOOR ALERT AND ORIENTED X 3. VITAL SIGNS STABLE. DENIES CHEST PAIN. + PULSES STEADY GAIT NOTED WITH ASSIST OF A ROLLING WALKING. DSG C/D/I NO DISCOMFORT NOTED. PATIENT RESTING AT THIS TIME. WILL CONTINUE TO MONITOR
--- NOTE | 2017-01-15 17:56 | ULTRASOUND REPORT ---
PROCEDURES: 1. LIMITED SONOGRAM OF THE RIGHT UPPER ABDOMINAL QUADRANT. 2. PLACEMENT OF AN 8 FR LOCKING ALL-PURPOSE DRAINAGE CATHETER INTO THE GALLBLADDER. 3. TUBE CHOLECYSTOGRAM. CLINICAL HISTORY: 51-year-old female with acute cholecystitis. Per discussion with the surgical service, the patient will be treated with antibiotics and had subsequent cholecystectomy following antibiotic treatment. A cholecystostomy tube is requested for decompression. The patient had a right upper quadrant ultrasound performed 01/14/2017 and a HIDA scan which were both consistent with the history of acute cholecystitis. PHYSICIANS: Juan R Reid MD MEDICATIONS: Fentanyl 50 mcg and Lidocaine 1% 10 mL SQ. Antibiotics: None. For additional details, please see nursing flow sheet. COMPLICATIONS: None. ESTIMATED BLOOD LOSS: < 5 mL SPECIMENS: None. CONTRAST: 10 mL Optiray 320 FLUOROSCOPY TIME: 0.4 minutes PROCEDURE NOTE: The procedure, risks, benefits, and alternatives were carefully explained to the patient and written informed consent was obtained. The patient was placed supine on the fluoroscopy table. A time out was performed. Prior to prepping the patient, a limited sonogram of the right upper quadrant was performed to localize the gallbladder and chose an appropriate access. The right upper abdomen was prepped and draped in usual sterile fashion. After choosing subcostal approach, the skin and subcutaneous tissues were anesthetized with Lidocaine. Under direct ultrasound guidance, an 8 Azerbaijani Saucedo-Garcia catheter was advanced via transhepatic approach into the gallbladder. The catheter tip was directly visualized within the gallbladder lumen. The catheter was advanced off the needle into the gallbladder lumen. There was immediate return of thick bile. A specimen was obtained for microbiology. 10 mL of contrast was injected into the tube. This showed several filling defects within the gallbladder consistent with gallstones, there was nonvisualization of the cystic duct. The catheter was sutured to the skin with an 0-silk suture. FINDINGS: 1. Distended gallbladder on ultrasound, filled with stones. 2. Aspiration of thick bile upon access of gallbladder. 3. Cystic duct obstruction. Common bile duct not visualized. IMPRESSION: Successful placement of an 8 Fr cholecystostomy catheter. PLAN: The patient was stable after the procedure and was transferred to the floor. The tube should be open to external gravity drainage via drainage bag. The tube should be flushed twice daily with 10 mL normal saline. The drain needs to remain in place for at least 6 weeks to give time for the tract to mature or until definitive cholecystectomy is performed.
[2017-01-15 22:58] VITALS: BP 132/72
--- NOTE | 2017-01-16 06:40 | PN- Housestaff ---
JERMAN KAPLAN,NATHAN 01/16/17 0619: Subjective Follow-up For: Acute cholecystitis Cough Complaints: right sided abdominal tenderness Subjective: Seen and examined at bedside. Comfortably resting. Slept well, tolerated procedure well. Started on liquid diet, tolerated this well. Review of Systems Constitutional: Reports: see HPI. Objective Last 24 Hrs of Vital Signs/I&O Vital Signs Date Time Temp Pulse Resp B/P Pulse O2 O2 Flow FiO2 Ox Delivery Rate 01/15 2258 98.4 81 18 132/72 95 Room Air 01/15 1440 98.3 84 18 112/60 94 Room Air 01/15 0746 104/68 01/15 0731 98.9 77 18 86/60 96 Room Air Intake & Output 01/16 0800 01/16 0000 01/15 1600 Intake Total 1540 723 0913 Output Total 30 60 Balance 204 53 8945 Intake, IV 1000 1000 Intake, Oral 100 700 Number 0 Bowel Movements Output, 30 60 Drainage Physical Exam General Appearance: Alert, Oriented X3, Cooperative Skin: drainage bag in place with bile present in bag HEENT: Atraumatic, PERRLA, EOMI Neck: Supple, No JVD Cardiovascular: Regular Rate, Normal S1, Normal S2 Lungs: Clear to Auscultation, Normal Air Movement Abdomen: Normal Bowel Sounds, Soft, right upper quadrant tenderness Neurological: Normal Speech Extremities: No Edema, Normal Pulses Current Medications: Current Medications Sig/Mariano Start time Last Medication Dose Route Stop Time Status Admin Acetaminophen 650 MG Q6P PRN 01/12 0030 AC PO Acetaminophen/ 1 TAB Q6P PRN 01/12 0030 AC Hydrocodone Bitart PO Ampicillin Sodium/ 3,000 MG Q6H 01/12 1000 AC 01/16 Sulbactam Sodium IV 0428 Sodium Chloride 100 ML Carbamazepine 400 MG BID 01/12 0026 AC 01/15 PO 2256 Divalproex Sodium 250 MG 1000 01/12 1000 AC 01/15 PO 1017 Divalproex Sodium 500 MG AT BEDTIME 01/12 0030 AC 01/15 PO 2259 Docusate Sodium 100 MG DAILY NEEDED PRN 01/14 0745 AC PO Fentanyl Citrate 0 .STK-MED ONE 01/15 1557 DC .ROUTE Guaifenesin 10 ML Q6P PRN 01/16 0630 AC PO Heparin Sodium 5,000 UNIT Q8 01/12 0022 AC 01/16 (Porcine) SC 0528 Lidocaine 0 .STK-MED ONE 01/15 1555 DC .ROUTE Morphine Sulfate 2 MG Q4P PRN 01/12 0030 AC 01/14 IV 0057 Ondansetron HCl 4 MG Q6P PRN 01/12 0030 AC 01/12 IV 7 Patient Own 0.375 UNIT TID 01/12 1000 AC 01/15 Medication PO 2257 Polyethylene Glycol 17 GM DAILY 01/14 1000 AC PO Sodium Chloride 1,000 ML .Q8H 01/11 2315 AC 01/16 IV 0528 Last 24 Hrs of Lab/Emanuel Results Last 24 Hrs of Labs/Mics: Laboratory Tests 01/15/17 1605: Fluid WBC , Fld Total RBCs Counted Microbiology 01/15 1605 GI FROM OR: Culture & Sensitivity - RECD 01/15 1605 GI FROM OR: Gram Stain - RECD 01/15 1605 BODY FLUID: Body Fluid Culture - CAN Cancelled: OE ERROR 01/15 1605 BODY FLUID: Gram Stain - CAN Cancelled: OE ERROR Assessment/Plan Assessment: 51-year-old female with a past medical childhood seizures, currently on carbamazepine and Depakote who [facility] for persistent abdominal pain, status post mechanical fall. She was discharged on 01/08 after being evaluated for N/V but no Fevers, chills or WBC. She is being treated for the following problems: 1. Status post mechanical fall 2. Abdominal pain with the radiological findings consistent with cholecystitis- ?sx started from since last discharge on 01/08. 3. History of childhood seizures Plan Continue monitoring her general medicine floor AM labs are pending, will f/u on results. Cultures sent when drain placed, f/u results Tolerated liquid diet last night, will advance to low fat diet. Drain in place with bile seen in bag. Liver enzymes elevated yesterday, along with alkaline phosphatase. this mornings labs are pending, Will continue unasyn for now. continue with IV fluids and IV pain medications continue home dose of depakote and carbamazepine for seizures, no reported events overnight Patient is full code dvt ppx AT ALL TIMES Problem List: 1. Acute cholecystitis 2. Orthostatic hypotension Pain Ratin Pain Location: abdominal Pain Goal: Pain 4 or less Pain Plan: continue pain regimen Tomorrow's Labs & Rationales: will f/u am labs CARLOS KAPLAN,ISMAELCLIFFORD 01/16/17 1837: Attending MD Review Statement Attending Statement Attending MD Statement: examined this patient, discuss w/resident/PA/PURCHASING ADMINISTRATIVE ASSISTANT, agreed w/resident/PA/PURCHASING ADMINISTRATIVE ASSISTANT, reviewed EMR data (avail) Attending Assessment/Plan: 51F PMH seizure disorder, recent fall and managed at [facility], presenting with diffuse abdominal pain, found to have acute vs chronic cholecystitis. Has been started on Unasyn and doing well. Underwent IR-guided cholecystostomy tube on 01/15, now draining dark fluid. Patient feels much better. She is more awake and alert, her abdominal pain has nearly resolved (aside from pain at incision site, which is still painful). Her headache and vertigo have resolved. Plan - Follow up with IR and surgery regarding duration of tube placement - Continue Unasyn - Follow cultures - Follow ID and surgery recommendations - Continue home medications - DVT PPx
[2017-01-16 07:49] VITALS: BP 124/64
[2017-01-16 08:54] LABS: ABSOLUTE BASOPHIL COUNT 0 /CUMM (0.0-0.2); ABSOLUTE EOSINOPHIL COUNT 0 /CUMM (0.0-0.7); ABSOLUTE GRANULOCYTE CT 0.8 /CUMM (1.4-6.5); ABSOLUTE LYMPH COUNT 2.5 /CUMM (1.2-3.4); ABSOLUTE MONOCYTE COUNT 0.4 /CUMM (0.10-0.60); BASOPHIL % 0.3 % (0.0-2.0); EOSINOPHIL % 0.3 % (0-5); GRANULOCYTE % 22.2 % (42.2-75.2); MEAN CORPUSCULAR HGB 32.3 PG (27.0-31.0); MEAN PLATELET VOLUME 6.6 FL (7.4-10.4); PLATELET COUNT 217 /CUMM (130-400); RBC DISTRIBUTION WIDTH 14.4 % (11.5-14.5); RED BLOOD CELL CT 2.66 /CUMM (4.20-5.40)
--- NOTE | 2017-01-16 12:21 | NUR ---
LATE ENTRY: PT REFUSED MIRALAX. PREFERS TO TAKE PRUNE JUICE OR STEAMED PRUNES INSTEAD. LBM TWO DAYS AGO - 01/14/17 +BS X4 QUADS, +FLATUS AND BELLY SOFT AND NON TENDER. DR. JARQUIN NOTIFIED. WILL CONT TO MONITOR.
--- NOTE | 2017-01-16 12:47 | PN- Infect Dx ---
Subjective Subjective: Afebrile. She denies abdominal pain but does note discomfort at the site of the cholecystostomy tube. She continues to complain of a cough. Objective Last 24 Hrs of Vital Signs/I&O Vital Signs Date Time Temp Pulse Resp B/P Pulse O2 O2 Flow FiO2 Ox Delivery Rate 01/16 0800 Room Air 01/16 0749 98.6 71 18 124/64 97 Room Air 01/15 2258 98.4 81 18 132/72 95 Room Air 01/15 1440 98.3 84 18 112/60 94 Room Air Intake & Output 01/16 1600 01/16 0800 01/16 0000 Intake Total 1000 100 Output Total 30 60 Balance 970 40 Intake, IV 1000 Intake, Oral 100 Output, 30 60 Drainage Physical Exam Other Physical Findings: She appears comfortable in no acute distress Lungs decreased breath sounds at the right base Heart regular rhythm with no murmur Abdomen soft, nontender with positive bowel sounds; cholecystostomy tube in place with 60 mL output yesterday and 30 mL overnight Extremities no cyanosis, clubbing or edema Results Last 24 Hours of Lab Results: Laboratory Tests 01/16 01/15 0620 1605 Chemistry Sodium (137 - 145 mmol/L) 142 Potassium (3.5 - 5.1 mmol/L) 2.8 *L Chloride (98 - 107 mmol/L) 103 Carbon Dioxide (22 - 30 mmol/L) 31 H Anion Gap (5 - 16) 8 BUN (7 - 17 mg/dL) < 2 L Creatinine (0.5 - 1.0 mg/dL) 0.5 Estimated GFR (>60 ml/min) > 60 BUN/Creatinine Ratio (7 - 25 %) 4.0 L Total Bilirubin (0.2 - 1.3 mg/dL) 0.4 Direct Bilirubin (< 0.4 mg/dL) 0.3 AST (14 - 36 U/L) 45 H ALT (9 - 52 U/L) 48 Alkaline Phosphatase (<127 U/L) 107 Total Protein (6.3 - 8.2 g/dL) 4.4 L Albumin (3.5 - 5.0 g/dL) 2.1 L Hematology CBC w Diff Pending WBC Pending RBC Pending Hgb Pending Hct Pending MCV Pending MCH Pending RDW Pending Plt Count Pending MPV Pending PUBS MCHC Pending Other Body Source Fluid WBC (0 - 5 /CUMM) Fld Total RBCs Counted (0 /CUMM) Last 24 Hours of Emanuel Results: Sputum culture January 14 positive for mixed pastor with scant growth of yeast and mold Bile culture January 15 negative Assessment/Plan Impression: Stable status post placement of a cholecystostomy tube yesterday for what was felt to be acute cholecystitis, with temperatures and white blood cell count remaining normal and with liver enzymes decreasing. She remains on Unasyn with the culture of the bile so far negative. The etiology of her cough remains unclear and may be secondary to irritation from the subdiaphragmatic process. The recent sputum culture grew yeast and mold, likely representing colonization or contamination. Suggestion: 1. Follow IR recommendations regarding management of the cholecystostomy tube 2. Surgical follow-up regarding eventual cholecystectomy 3. CT of the chest if her cough persists 4. Continue Unasyn
[2017-01-16 13:02] LABS: WHITE BLOOD CELL COUNT 3.7 /CUMM (4.8-10.8)
[2017-01-16 14:47] VITALS: BP 128/70
--- NOTE | 2017-01-16 20:27 | NUR ---
RECEIVED PATIENT AT 1900. PT ALERT AND PLEASNTLY CONFUSED. MULTIPLE ATTEMPTS OVER THE PAST HOUR OF PATIENT TRYING TO GET OOB. ASSISTED TO CHAIR, DIVERSIONAL ACTIVTIES PROVIDED, PT STILL ATTEMPTING UNSAFE AMBULATION. UNABLE TO LEAVE PATIENT ALONE SECONDARY TO UNSAFE AMBULATION. SCHOOL T[employer]AS[employer]ER ORDERED FOR SAFETY
[2017-01-16 22:16] VITALS: BP 104/64
[2017-01-17 06:37] VITALS: BP 118/66
--- NOTE | 2017-01-17 08:00 | NUR ---
LATE ENTRY: PT CONTINUES WITH INTERMITTENT COUGH- PRODUCTIVE WITH THIN CLEAR SPUTUM. [facility] RESULTS SHOWING SCANT MOLD/YEAST GROWTH. DR. GILL NOTIFIED. TO ASSESS PT AND FOLLOW UP NEEDED. WILL CONT TO MONITOR.
--- NOTE | 2017-01-17 08:23 | PN- Housestaff ---
See Addendum Subjective Follow-up For: Status post cholecystostomy tube Persistent cough Hypokalemia Complaints: Intermittent cough Subjective: Interval history: This morning she denies any new symptoms. She does report persistent intermittent cough with clear sputum. She denies any fevers, chills, chest pain , shortness of breath over the past 24 hours. She does report some mild discomfort around the incision sites all the cholecystostomy drain but denies any worsening pain or bleeding from the site. Review of Systems Constitutional: Reports: see HPI. EENTM: Reports: no symptoms. Cardiovascular: Reports: no symptoms. Respiratory: Reports: see HPI. Gastrointestinal: Reports: see HPI. Genitourinary: Reports: no symptoms. Musculoskeletal: Reports: see HPI. Skin: Reports: see HPI. Objective Last 24 Hrs of Vital Signs/I&O Vital Signs Date Time Temp Pulse Resp B/P Pulse O2 O2 Flow FiO2 Ox Delivery Rate 01/17 0637 98.9 72 18 118/66 94 Room Air 01/17 0000 95 Room Air 01/16 2216 98.3 73 20 104/64 96 01/16 1447 97.8 72 18 128/70 98 Room Air Intake & Output 01/17 1600 01/17 0800 01/17 0000 Intake Total 400 Output Total 355 600 Balance -355 -200 Intake, Oral 400 Output, 5 Drainage Output, Urine 350 600 Physical Exam General Appearance: Alert, Cooperative, No Acute Distress Skin: No evidence of erythemaa around the site of percutaneous drain HEENT: EOMI, Mucous Membr. moist/pink Cardiovascular: Regular Rate, Normal S1, Normal S2 Lungs: Clear to Auscultation, Normal Air Movement, Scant inspiratory stridor on the left lung lynch that clears up with coughing Abdomen: Normal Bowel Sounds, Soft, No Tenderness, Percutaneous cholecystostomy tube in place on the Right flank region with light green drainage in bag Neurological: Normal Speech, Strength at 5/5 X4 Ext Extremities: Normal Pulses, 2+ pitting edema BL LE Vascular: Pulses Symmetrical Current Medications: Current Medications Sig/Mariano Start time Last Medication Dose Route Stop Time Status Admin Acetaminophen 650 MG Q6P PRN 01/12 0030 AC / PO 0805 Acetaminophen/ 1 TAB Q6P PRN 01/12 0030 AC Hydrocodone Bitart PO Ampicillin Sodium/ 3,000 MG Q6H 01/12 1000 AC 01/17 Sulbactam Sodium IV 0524 Sodium Chloride 100 ML Carbamazepine 400 MG BID 01/12 0026 AC 01/17 PO 0949 Divalproex Sodium 250 MG 1000 01/12 1000 AC 01/17 PO 0948 Divalproex Sodium 500 MG AT BEDTIME 01/12 0030 AC 01/16 PO 2158 Docusate Sodium 100 MG DAILY NEEDED PRN 01/14 0745 AC PO Guaifenesin 10 ML Q6P PRN 01/16 0630 AC PO Heparin Sodium 5,000 UNIT Q8 01/12 0022 AC 01/17 (Porcine) SC 0524 Morphine Sulfate 2 MG Q4P PRN 01/12 0030 AC 01/14 IV 0057 Ondansetron HCl 4 MG Q6P PRN 01/12 0030 AC 01/12 IV 202 Patient Own 0.375 UNIT TID 01/12 1000 AC 01/17 Medication PO 0949 Polyethylene Glycol 17 GM DAILY 01/14 1000 AC PO Potassium Chloride 40 MEQ ONCE ONE 01/16 1200 DC 01/16 PO 01/16 1201 1147 Assessment/Plan Assessment: 51-year-old female with a past medical childhood seizures, currently on carbamazepine and Depakote who presented to the [facility] for persistent abdominal pain, status post mechanical fall. She was discharged on 01/08 after being evaluated for N/V but no Fevers, chills or WBC. She is being treated for the following problems: 1. Status post mechanical fall 2. Abdominal pain with the radiological findings consistent with cholecystitis 3. History of childhood seizures 4. Hypokalemia 5. Persistent cough: Rester cultures positive for yeast and mold Plan 1. Status post percutaneous cholecystostomy tube placement * Day 6 Unasyn IV * Blood cultures no growth to date * We'll follow-up with surgery for planned duration of tube placement * Plan transition to PO antibiotics after discussion with ID and surgery * No evidence of fever, tachycardia or hypotension over the past 72 hours * Follow up blood and cultures from drain * Advancing diet this time as tolerated * LFTs stable 2. Hypokalemia * Potassium of 2.8 yesterday * Follow-up magnesium level. Patient did receive K Solis 40 mEq 2 yesterday. We 'll replete as needed 3. Persistent cough with sputum culture positive for mold and yeast * She does endorse exposure to mold at her job. Patient also has 6 cats at home but denies any new allergic symptoms * We'll discuss utility of chest CT for further workup 4. History of seizure disorder * Continue home dose of depakote and carbamazepine for seizures, no reported events overnight 5. Diet: Low-fat 6. Patient is full code 7. DVT prophylaxis: Heparin 5000 units subcutaneous Problem List: 1. Acute cholecystitis 2. Cholecystostomy care 3. Seizure disorder 4. Gait abnormality 5. Hypokalemia 6. Cough Pain Ratin Pain Location: Righ flank Pain Goal: Pain 4 or less Pain Plan: Tylenol, Vicodin when necessary Tomorrow's Labs & Rationales: CBC: Trending leukocytosis BEP: Following hypokalemia DVT/Prophylaxis: pharmacological Consulting Request: Consulting Specialty: Infectious Disease
[2017-01-17 12:02] LABS: ABSOLUTE BASOPHIL COUNT 0 /CUMM (0.0-0.2); ABSOLUTE EOSINOPHIL COUNT 0 /CUMM (0.0-0.7); ABSOLUTE GRANULOCYTE CT 0.9 /CUMM (1.4-6.5); ABSOLUTE MONOCYTE COUNT 0.5 /CUMM (0.10-0.60); BASOPHIL % 0.6 % (0.0-2.0); EOSINOPHIL % 0.5 % (0-5); GRANULOCYTE % 26.9 % (42.2-75.2); HEMATOCRIT 28.6 % (37-47); MEAN CORPUSCULAR HGB 32.6 PG (27.0-31.0); MEAN CORPUSCULAR HGB CONC 33.2 G/DL (33.0-37.0); MEAN CORPUSCULAR VOLUME 98.4 FL (81.0-99.0); MEAN PLATELET VOLUME 6.2 FL (7.4-10.4); PLATELET COUNT 279 /CUMM (130-400); RBC DISTRIBUTION WIDTH 14.7 % (11.5-14.5); RED BLOOD CELL CT 2.91 /CUMM (4.20-5.40); WHITE BLOOD CELL COUNT 3.5 /CUMM (4.8-10.8)
--- NOTE | 2017-01-17 12:40 | NUR ---
LATE ENTRY: PT REPORTING SHE IS SEEING "BLACK DOTS." REPORTS SHE HAS SEEN "BLACK DOTS LIKE THIS" IN THE PAST "BUT NOT MUCH NOW." VS ASSESSED- WNL. DENIES ANY DIZZINESS, NAUSEA OR CHEST PAIN. LIGHTS TURNED DOWN WHICH PT REPORTED HELPED DECREASE THE AMOUNT "OF BLACK DOTS" SHE WAS SEEING. DR. GILL NOTIFIED. MD TO SEE PT. SHORTLY LATER, PT REPORTED THAT THE "BLACK DOTS" SUBSIDED. DR. GONZALEZ ALSO AWARE. WILL CONT TO MONITOR.
[2017-01-17 14:15] VITALS: BP 108/60
--- NOTE | 2017-01-17 14:36 | NUR ---
NURSING NOTE: PT NOTED TO HAVE 1650ML LIGHT ALISHA CLEAR URINE OUTPUT OVER 7 HOUR SPAN. PO INTAKE FAIR AND NOT EXCESSIVE. DR GILL NOTIFIED, PT IN NO DISTRESS VSS. NO ACUTE EDEMA PRESENT. NO SOB. WILL CONTINUE TO MONITOR.
[2017-01-17 21:34] VITALS: BP 116/64
[2017-01-18 06:10] VITALS: BP 132/69
--- NOTE | 2017-01-18 08:01 | NUR ---
nursing note: pt has sutures to r eye, states they were placed weds 12 days ago. rico weinberg 300 to find out when they need to be removed. pt updated, cont to monitor.
--- NOTE | 2017-01-18 08:24 | PN- Housestaff ---
JERMAN KAPLAN,NATHAN 01/18/17 0823: Subjective Follow-up For: Acute cholecystitis s/p cholecystostomy tube persistent cough Complaints: no complaints Subjective: Seen and examined at bedside. Feels better, abdominal pain has decreased signifcantly. Reports diarrheal episodes over the weekend but now says symptoms have improved. Complains of lingering cough. Review of Systems Constitutional: Reports: see HPI. Objective Last 24 Hrs of Vital Signs/I&O Vital Signs Date Time Temp Pulse Resp B/P Pulse O2 O2 Flow FiO2 Ox Delivery Rate 01/18 0610 99.0 80 18 132/69 01/18 0000 Room Air 01/17 2134 98.4 74 20 116/64 97 03/05 1415 97.9 70 18 108/60 95 Room Air Intake & Output 01/18 1600 01/18 0800 01/18 0000 Intake Total 220 220 Output Total 920 1300 Balance -700 -1080 Intake, IV 100 100 Intake, Oral 120 120 Output, 20 Drainage Output, Urine 900 1300 Physical Exam General Appearance: Alert, Oriented X3, Cooperative Skin: no evidence of erthema around site of percutaneous drain HEENT: Atraumatic, PERRLA, EOMI Neck: Supple, No JVD Lymphatic: Cervical nl Cardiovascular: Regular Rate, Normal S1, Normal S2, No Murmurs Lungs: Clear to Auscultation, Normal Air Movement Abdomen: Normal Bowel Sounds, Soft, mild tenderness RUQ, improving Neurological: Normal Speech Extremities: No Edema, Normal Pulses Current Medications: Current Medications Sig/Mariano Start time Last Medication Dose Route Stop Time Status Admin Acetaminophen 650 MG Q6P PRN 01/12 0030 AC 01/16 PO 0805 Acetaminophen/ 1 TAB Q6P PRN 01/12 0030 AC Hydrocodone Bitart PO Ampicillin Sodium/ 3,000 MG Q6H 01/12 1000 AC 01/18 Sulbactam Sodium IV 0337 Sodium Chloride 100 ML Carbamazepine 400 MG BID 01/12 0026 AC 01/17 PO 2145 Divalproex Sodium 250 MG 1000 01/12 1000 AC 01/17 PO 0948 Divalproex Sodium 500 MG AT BEDTIME 01/12 0030 AC 01/17 PO 2147 Docusate Sodium 100 MG DAILY NEEDED PRN 01/14 0745 AC PO Guaifenesin 10 ML Q6P PRN 01/16 0630 AC PO Heparin Sodium 5,000 UNIT Q8 01/12 0022 AC 01/18 (Porcine) SC 0508 Morphine Sulfate 2 MG Q4P PRN 01/12 003 AC 01/14 IV 005 Ondansetron HCl 4 MG Q6P PRN 01/12 0030 AC 01/12 IV 2026 Patient Own 0.375 UNIT TID 01/12 1000 AC 01/17 Medication PO 214 Polyethylene Glycol 17 GM DAILY 01/14 1000 AC PO Last 24 Hrs of Lab/Emanuel Results Last 24 Hrs of Labs/Mics: Laboratory Tests 01/18/17 0605: Anion Gap 6, Estimated GFR > 60, BUN/Creatinine Ratio 3.3 L, Total Bilirubin 0.3, Direct Bilirubin 0.3, AST 26, ALT 40, Alkaline Phosphatase 81, Total Protein 5.0 L, Albumin 2.3 L, CBC w Diff Pending, WBC Pending, RBC Pending, Hgb Pending, Hct Pending, MCV Pending, MCH Pending, RDW Pending, Plt Count Pending, MPV Pending, PUBS MCHC Pending 01/17/17 1130: Anion Gap 5, Estimated GFR > 60, BUN/Creatinine Ratio 3.3 L, Magnesium 2.1, CBC w Diff NO MAN DIFF REQ, RBC 2.91 L, MCV 98.4, MCH 32.6 H, RDW 14.7 H, MPV 6.2 L, Gran % 26.9 L, Lymphocytes % 58.5 H, Monocytes % 13.5 H, Eosinophils % 0.5, Basophils % 0.6, Absolute Granulocytes 0.9 L, Absolute Lymphocytes 2.0, Absolute Monocytes 0.5, Absolute Eosinophils 0, Absolute Basophils 0, PUBS MCHC 33.2 Assessment/Plan Assessment: 51-year-old female with a past medical childhood seizures, currently on carbamazepine and Depakote who presented to the [facility] for persistent abdominal pain, status post mechanical fall. She was discharged on 01/08 after being evaluated for N/V but no Fevers, chills or WBC. She is being treated for the following problems: 1. Abdominal pain with the radiological findings consistent with cholecystitis 2. History of childhood seizures 3. Hypokalemia 4. Persistent cough: Rester cultures positive for yeast and mold 5. Status post mechanical fall Plan 1. Status post percutaneous cholecystostomy tube placement * Day 7 Unasyn IV, discussed with surgeon and ID will change abx to augmentin. Discussed with patient, no allergy to amoxicillin, has had diarrhea in the past. * Blood cultures no growth to date * We'll follow-up with surgery for planned duration of tube placement * Plan transition to PO antibiotics after discussion with ID and surgery * No evidence of fever, tachycardia or hypotension over the past 72 hours * Follow up blood and cultures from drain * Advancing diet this time as tolerated * LFTs stable 2. Hypokalemia * Potassium of 2.8 01/16/17, K 4.4 today * Mg 2.1, 01/17/17 3. Persistent cough with sputum culture positive for mold and yeast * She does endorse exposure to mold at her job. Patient also has 6 cats at home but denies any new allergic symptoms * Will get repeat chest xray today. 4. History of seizure disorder * Continue home dose of depakote and carbamazepine for seizures, no reported events overnight 5. Diet: Low-fat 6. We will remove stitches placed over right eye 7. Patient is full code 8. DVT prophylaxis: Heparin 5000 units sq Problem List: 1. Minor head injury without loss of consciousness 2. Seizure disorder 3. Acute cholecystitis 4. Cholecystostomy care 5. Hypokalemia 6. Cough Pain Ratin Pain Location: no pain Pain Goal: Remain pain free Pain Plan: continue current treatment Tomorrow's Labs & Rationales: BEP Consulting Request: Consulting Specialty: Infectious Disease KESHIA KAPLAN,LATOYA 01/18/17 1159: Attending MD Review Statement Attending Statement Attending MD Statement: examined this patient, discuss w/resident/PA/INTERFACE ANALYST, agreed w/resident/PA/INTERFACE ANALYST, discussed with family, reviewed EMR data (avail) Attending Assessment/Plan: Patient seen and examined. She is currently afebrile and denies any nausea vomiting. She has minimal pain in abdomen. She is able to take by mouth food without any difficulties. Her vital signs are currently stable. Abdomen is soft with mild discomfort over the right upper quadrant area. Labs were reviewed and current WBC count is 5. Chemistry labs are within normal limits. Output from the cholecystotomy tube has progressively decreased to 25 mL per day. Assessment * Acute cholecystitis status post cholecystotomy tube and currently being treated with IV Unasyn * History of hypokalemia now resolved * Persistent coughing Plan * Plan is to discuss duration of antibiotics and cholecystotomy tube with surgery * We'll obtain a PA and lateral view x-ray of the chest to rule out pneumonia * Patient possibly can be discharged tomorrow
[2017-01-18 08:54] LABS: ABSOLUTE BASOPHIL COUNT 0 /CUMM (0.0-0.2); ABSOLUTE EOSINOPHIL COUNT 0 /CUMM (0.0-0.7)
[2017-01-18 09:09] LABS: ABSOLUTE LYMPH COUNT 3.5 /CUMM (1.2-3.4); ABSOLUTE MONOCYTE COUNT 0.5 /CUMM (0.10-0.60); BASOPHIL % 0.4 % (0.0-2.0); EOSINOPHIL % 0.3 % (0-5); GRANULOCYTE % 19.2 % (42.2-75.2); HEMATOCRIT 27.2 % (37-47); MEAN CORPUSCULAR HGB 32.8 PG (27.0-31.0); MEAN CORPUSCULAR HGB CONC 33.1 G/DL (33.0-37.0); MEAN PLATELET VOLUME 6.3 FL (7.4-10.4); PLATELET COUNT 296 /CUMM (130-400); RBC DISTRIBUTION WIDTH 14.8 % (11.5-14.5); RED BLOOD CELL CT 2.75 /CUMM (4.20-5.40)
--- NOTE | 2017-01-18 09:59 | NUR ---
NURSING NOTE: PT LEFT FLOOR VIA STRETCHER WITH DISTRIBUTION FOR CXR PER MD ORDER. PT AWAKE, A/OX3, ROOM AIR, IV ANTIBX INFUSING, TICKET TO RIDE COMPLETE, AWAIT RETURN TO FLOOR.
--- NOTE | 2017-01-18 10:45 | NUR ---
NURSING NOTE: PT BACK TO FLOOR VIA STRETCHER WITH DISTRIBUTION FROM CXR, PT AWAKE, A/OX3, ROOM AIR, SETTLED INTO BED, DENIES PAIN, CONT TO MONITOR.
--- NOTE | 2017-01-18 13:45 | RADIOLOGY REPORT ---
EXAMINATION: XR CHEST CLINICAL INFORMATION: Persistent cough and sputum production. COMPARISON: Chest x-ray dated 01/11/2017, 01/07/2017. TECHNIQUE: AP and lateral views of the chest were obtained. FINDINGS: The cardiomediastinal silhouette is within normal limits in size. Lungs bilaterally are mildly hypoinflated with slight elevation of the right hemidiaphragm and mild right basilar subsegmental atelectasis, unchanged. Trace bilateral pleural effusions are seen. Lungs are otherwise clear. No focal consolidation or pneumothorax. There is minimal loss in the anterior vertebral body height of T12, unchanged. Osteopenia is noted. IMPRESSION: 1. Trace bilateral pleural effusions and mild right basilar subsegmental atelectasis. 2. No focal pneumonia.
--- NOTE | 2017-01-18 13:54 | PN- Infect Dx ---
Subjective Subjective: Afebrile. She has no abdominal pain. She notes improvement in her cough, now productive of white phlegm, with no complaints of chest pain or shortness of breath. Objective Last 24 Hrs of Vital Signs/I&O Vital Signs Date Time Temp Pulse Resp B/P Pulse O2 O2 Flow FiO2 Ox Delivery Rate 01/18 610 99.0 80 18 132/69 01/18 0000 Room Air 01/17 2134 98.4 74 20 116/64 97 01/17 1415 97.9 70 18 108/60 95 Room Air Intake & Output 01/18 1600 01/18 0800 01/18 0000 Intake Total 220 220 Output Total 868 136 4530 Balance -400 -700 -1080 Intake, IV 100 100 Intake, Oral 120 120 Output, 20 Drainage Output, Urine 819 007 7011 Physical Exam Other Physical Findings: She appears comfortable in no acute distress Lungs improved breath sounds at the right base Heart regular rhythm with no murmur Abdomen soft, nontender with positive bowel sounds; cholecystostomy tube in place with 25 mL output yesterday and 20 mL overnight Results Last 24 Hours of Lab Results: Laboratory Tests 01/18 605 Chemistry Sodium (137 - 145 mmol/L) 143 Potassium (3.5 - 5.1 mmol/L) 4.4 Chloride (98 - 107 mmol/L) 103 Carbon Dioxide (22 - 30 mmol/L) 35 H Anion Gap (5 - 16) 6 BUN (7 - 17 mg/dL) < 2 L Creatinine (0.5 - 1.0 mg/dL) 0.6 Estimated GFR (>60 ml/min) > 60 BUN/Creatinine Ratio (7 - 25 %) 3.3 L Total Bilirubin (0.2 - 1.3 mg/dL) 0.3 Direct Bilirubin (< 0.4 mg/dL) 0.3 AST (14 - 36 U/L) 26 ALT (9 - 52 U/L) 40 Alkaline Phosphatase (<127 U/L) 81 Total Protein (6.3 - 8.2 g/dL) 5.0 L Albumin (3.5 - 5.0 g/dL) 2.3 L Hematology CBC w Diff NO MAN DIFF REQ WBC (4.8 - 10.8 /CUMM) 5.0 RBC (4.20 - 5.40 /CUMM) 2.75 L Hgb (12.0 - 16.0 G/DL) 9.0 L Hct (37 - 47 %) 27.2 L MCV (81.0 - 99.0 FL) 99.0 MCH (27.0 - 31.0 PG) 32.8 H RDW (11.5 - 14.5 %) 14.8 H Plt Count (130 - 400 /CUMM) 296 MPV (7.4 - 10.4 FL) 6.3 L Gran % (42.2 - 75.2 %) 19.2 L Lymphocytes % (20.5 - 51.1 %) 70.3 H Monocytes % (1.7 - 9.3 %) 9.8 H Eosinophils % (0 - 5 %) 0.3 Basophils % (0.0 - 2.0 %) 0.4 Absolute Granulocytes (1.4 - 6.5 /CUMM) 1.0 L Absolute Lymphocytes (1.2 - 3.4 /CUMM) 3.5 H Absolute Monocytes (0.10 - 0.60 /CUMM) 0.5 Absolute Eosinophils (0.0 - 0.7 /CUMM) 0 Absolute Basophils (0.0 - 0.2 /CUMM) 0 PUBS MCHC (33.0 - 37.0 G/DL) 33.1 Last 24 Hours of Emanuel Results: Bile culture January 15 negative Recent Imaging Studies: Chest x-ray January 18, personally reviewed, reveals trace bilateral pleural effusions and mild right basilar subsegmental atelectasis Assessment/Plan Impression: Stable status post placement of a cholecystostomy tube 3 days ago for what was felt to be acute cholecystitis, with temperatures and white blood cell count remaining normal and with liver enzymes now normal. The bile culture remains negative, suggesting that, though there may have been inflammation, there was no secondary infection, but the culture was obtained after several days of antibiotics. She does remains on Unasyn and she can complete a seven-day course of antibiotics. Her cough persists though it is improved and may have been secondary to diaphragmatic irritation. Suggestion: 1. Surgical follow-up regarding eventual cholecystectomy 2. Discontinue Unasyn and begin Augmentin 875 mg po every 12 hours for 4 more days
[2017-01-18 15:26] VITALS: BP 108/64
[2017-01-18 22:56] VITALS: BP 133/75
[2017-01-19 06:41] VITALS: BP 118/60
--- NOTE | 2017-01-19 08:41 | PN- Housestaff ---
JERMAN KAPLAN,NATHAN 01/19/17 0831: Subjective Follow-up For: Acute Cholecysitits s/p cholecystostomy tube Complaints: no complaints Subjective: Seen and examined at bedside. Reports sleeping well, no complaints. Abdominal pain has subsided, mild tenderness present. No further diarrheal episodes. Anxious to go home today. Review of Systems Constitutional: Reports: see HPI. Objective Last 24 Hrs of Vital Signs/I&O Vital Signs Date Time Temp Pulse Resp B/P Pulse O2 O2 Flow FiO2 Ox Delivery Rate 01/19 0641 97.6 69 18 118/60 96 Room Air 01/18 2256 98.8 84 20 133/75 95 Room Air 01/18 1600 Room Air 01/18 1526 98.4 80 20 108/64 98 Room Air Intake & Output 01/19 1600 01/19 0800 01/19 0000 Intake Total 240 970 Output Total 500 807 Balance -260 163 Intake, IV 10 Intake, Oral 240 960 Output, 7 Drainage Output, Urine 500 800 Physical Exam General Appearance: Alert, Oriented X3, Cooperative, No Acute Distress Skin: No Rashes, right sided healed incision over eye-stitches removed yesterday HEENT: Atraumatic, PERRLA, EOMI, Mucous Membr. moist/pink Neck: Supple, No JVD Lymphatic: Cervical nl Cardiovascular: Regular Rate, Normal S1, Normal S2, No Murmurs Lungs: Clear to Auscultation, Normal Air Movement Abdomen: Normal Bowel Sounds, Soft, No Tenderness, drain in place on right side- minimal drainage Neurological: Normal Speech Extremities: No Edema, Normal Pulses Current Medications: Current Medications Sig/Mariano Start time Last Medication Dose Route Stop Time Status Admin Acetaminophen 650 MG Q6P PRN 01/12 0030 AC 01/16 PO 0805 Acetaminophen/ 1 TAB Q6P PRN 01/12 0030 DC Hydrocodone Bitart PO Amoxicillin/ 875 MG Q12 01/18 1412 AC 01/18 Clavulanate Potassium PO 2107 Ampicillin Sodium/ 3,000 MG Q6H 01/12 1000 DC 01/18 Sulbactam Sodium IV 0911 Sodium Chloride 100 ML Carbamazepine 400 MG BID 01/12 0026 AC 01/18 PO 2107 Divalproex Sodium 250 MG 1000 01/12 1000 AC 01/18 PO 0910 Divalproex Sodium 500 MG AT BEDTIME 01/12 0030 AC 01/18 PO 2107 Docusate Sodium 100 MG DAILY NEEDED PRN 01/14 0745 AC PO Guaifenesin 10 ML Q6P PRN 01/16 0630 AC PO Heparin Sodium 5,000 UNIT Q8 01/12 0022 AC 01/19 (Porcine) SC 0600 Morphine Sulfate 2 MG Q4P PRN 01/12 0030 DC 01/14 IV 0057 Ondansetron HCl 4 MG Q6P PRN 01/12 0030 AC 01/12 IV 2026 Patient Medication 1 ED .STK-MED ONE 01/18 1406 HI Teaching ED 01/18 140 Patient Own 0.375 UNIT TID 01/12 1000 AC 01/18 Medication PO 210 Polyethylene Glycol 17 GM DAILY 01/14 1000 AC PO Assessment/Plan Assessment: 51-year-old female with a past medical childhood seizures, currently on carbamazepine and Depakote who presented to the [facility] for persistent abdominal pain, status post mechanical fall. She was discharged on 01/08 after being evaluated for N/V but no Fevers, chills or WBC. She is being treated for the following problems: 1. Abdominal pain with the radiological findings consistent with cholecystitis 2. History of childhood seizures 3. Hypokalemia 4. Persistent cough: Rester cultures positive for yeast and mold 5. Status post mechanical fall Plan 1. Status post percutaneous cholecystostomy tube placement * Changed abx to augmentin. Discussed with patient, no allergy to amoxicillin, has had diarrhea in the past. Asked to use probiotics while taking medication. we will continue this medication for one week since tube placement, 01/22/17. * Blood cultures no growth to date * Discussed with surgery for planned duration of tube placement, would like tube in place for 6 weeks * No evidence of fever, tachycardia or hypotension over the past 72 hours * Follow up blood and cultures from drain * Tolerating oral diet w/o complications * LFTs stable 2. Hypokalemia * Potassium of 2.8 01/16/17, K 4.4 01/17/17 * Mg 2.1, 01/17/17 3. Cough has improved * She does endorse exposure to mold at her job. Patient also has 6 cats at home but denies any new allergic symptoms * Repeat cxr pa/lateral did not show signs of pneumonia 4. History of seizure disorder * Continue home dose of depakote and carbamazepine for seizures 5. Diet: Low-fat 6. Removed stitches placed over right eye 7. Patient is full code 8. DVT prophylaxis: Heparin 5000 units sq Problem List: 1. Cough 2. Hypokalemia 3. Cholecystostomy care 4. Acute cholecystitis 5. Seizure disorder Pain Ratin Pain Location: no pain Pain Goal: Remain pain free Pain Plan: continue current regimen Tomorrow's Labs & Rationales: discharge today Consulting Request: Consulting Specialty: Infectious Disease KESHIA KAPLAN,[facility] 01/19/17 0920: Attending MD Review Statement Attending Statement Attending Assessment/Plan: Attending MD Statement: examined this patient, discuss w/resident/PA/[employer], agreed w/resident/PA/[employer], discussed with family, reviewed EMR data (avail) Attending Assessment/Plan: Patient seen and examined. She is currently afebrile and denies any fever or chills. She became nauseous after taking oral antibiotic last night. She has minimal pain in abdomen. She is able to take by mouth food without any difficulties. Her vital signs are currently stable. Abdomen is soft with mild discomfort over the right upper quadrant area. No new labs were done today. Output from the cholecystotomy tube has progressively decreased to 32 mL. Chest x-ray 1. Trace bilateral pleural effusions and mild right basilar subsegmental atelectasis. 2. No focal pneumonia. Assessment * Acute cholecystitis status post cholecystotomy tube and currently on antibiotics * History of hypokalemia now resolved * Persistent coughing without any focal pneumonia on chest x-ray. Patient does have with atelectasis Plan * Continue Augmentin for 1 week * Follow-up with surgery * Patient will be leaving with the cholecystotomy tube for total of 6 weeks as per surgery attending * Start incentive spirometry * Patient possibly can be discharged today
[2017-01-19] MEDS ORDERED: AMOX-CLAV 875-1 EACH PO (08:45)
--- NOTE | 2017-01-19 09:18 | NUR ---
NURSING NOTE: PTS OWN MED GIVEN BACK TO HER, PT BEING DCD TODAY.
--- NOTE | 2017-01-19 09:19 | NUR ---
NURSING NOTE: EDUCATED PT ON FLUSHING AND DRAINING OF R PERCUTANEOUS DRAIN BY VERBAL INSTRUCTION AND DEMONSTRATION. PT VERBALIZED UNDERSTANDING AND PREFORMED FLUSH SUCCESFULLY.
--- NOTE | 2017-01-19 09:24 | Patient Discharge Instructions ---
Discharge Instructions General Discharge Information You were seen/treated for: Acute cholecystitis Special Instructions: Please f/u with surgeon Dr. Maki. Cholecystostomy catheter to remain in place for 6 weeks as per surgery Diet Continue normal diet: Yes Recommended Diet: Low Fat Acute Coronary Syndrome Inclusion Criteria At DC or during hospital stay patient has or had the following: ACS DIAGNOSIS No Discharge Core Measures Meds if any: Prescribed or Continued at Discharge Meds if any: NOT Prescribed or Continued at Discharge Congestive Heart Failure Inclusion Criteria At DC or during hospital stay patient has or had the following: CHF DIAGNOSIS No Discharge Core Measures Meds if any: Prescribed or Continued at Discharge Meds if any: NOT Prescribed or Continued at Discharge Cerebrovascular accident Inclusion Criteria At DC or during hospital stay patient has or had the following: CVA/TIA Diagnosis No Discharge Core Measures Meds if any: Prescribed or Continued at Discharge Meds if any: NOT Prescribed or Continued at Discharge Venous thromboembolism Inclusion Criteria VTE Diagnosis No VTE Type NONE VTE Confirmed by (Test) NONE Discharge Core Measures - Per Current guidelines, there needs to be overlap - treatment for the first 5 days of Warfarin therapy. - If discharged on Warfarin prior to 5 days of - overlap therapy, the patient will need to be - assessed for post discharge needs including - *Post discharge parental anticoagulation - *Warfarin and/or parental anticoagulation education - *Follow up date to check INR post discharge At least 5 days overlap therapy as Inpatient No Meds if any: Prescribed or Continued at Discharge Note: Overlap Therapy is Warfarin and Anticoagulant Meds if any: NOT Prescribed or Continued at Discharge
[2017-04-15] MEDS ORDERED: TEGRETOL XR200 M1 PO (10:58)
== END 2017-01-19 13:15 | disposition home health service (06) | DRG 446 ==
LOC: ENRESERVDT → ENRESERVTM → ERH 15:28 → 2NB 23:05 → ERHI 23:05 → 1NO 23:05 → ENPENDDIS 23:05 → DELPENDDIS 23:05 → EDBEDREQ 01-12 00:24 → 1NO 01-12 05:26 → 2NB 01-14 22:01
PROVIDERS: Internal Medicine; Internal Medicine Nephrology; Physician Assistant Medical; Student in an Organized Health Care Education/Training Program; ADMIT Internal Medicine
PROC: 0F9430Z Drainage of Gallbladder with Drainage Device, Percutaneous Approach (ICD-10-PCS; principal; 2017-01-15)
DX: K81.0 Acute cholecystitis (principal); E87.6 Hypokalemia; G40.909 Epilepsy, unspecified, not intractable, without status epilepticus
CPT/HCPCS: 1NSP; 2NBSP; 87075; ERO; 36415; 74176; 78226; 81001; 81003; 82436; 87040; 87070; 87071; 87086; 93005; 93010; 96361; 96374; A9537; C1769; J1644; J2405; Q2036

== ENCOUNTER 2017-02-22 14:00 | Emergency (ER) | payer OTHER ==
[~2017-02-22] VITALS: Ht 172.7 cm; Wt 63.5 kg
[~2017-02-22 14:00] MED LIST changes: +AMOX-CLAV 875-1 EACH PO
--- NOTE | 2017-02-22 15:08 | ED GI/GU/ABDOMINAL COMPLAINT ---
History of Present Illness General Chief Complaint: General Adult Stated Complaint: PT HAS DRAIN FOR GALLBLADDER "DOUBLING OVER PAIN" Source: patient Exam Limitations: no limitations Vital Signs & Intake/Output Vital Signs & Intake/Output Vital Signs Date Time Temp Pulse Resp B/P Pulse O2 O2 Flow FiO2 Ox Delivery Rate 02/22 1735 97.2 82 16 114/59 100 Room Air 02/22 1405 98.0 89 20 114/74 95 Room Air Allergies Coded Allergies: amoxicillin (Intermediate, GI DISTRESS 01/07/17) aspirin (PER PT CAN NOT TAKE R/T SEIZURES 02/22/17) Reconcile Medications Carbamazapine (Carbatrol) 200 MG CPMP.12HR 2 TAB PO BID Seizures Cholecalciferol (Vitamin D3) (Vitamin D) (Unknown Strength) TABLET (Unknown Dose) PO DAILY SUPPLEMENT (Reported) Clindamycin HCl (Cleocin HCl) 300 MG CAPSULE 1 CAP PO Q6 INFECTION Divalproex Sodium (Depakote ER) 250 MG TAB.ER.24H 1 TAB PO 1000 Seizures Divalproex Sodium 500 MG TABLET.DR 1 TAB PO 2200 Seizure Hydrocodone/Acetaminophen (Bath 5-325 Tablet) 5 MG-325 MG TABLET 1-2 TAB PO Q4-6 PRN PRN PAIN [Progesterone] 0.25 TAB PO TID SEIZURES (Reported) Triage Note: PT TO ED C/O RUQ PAIN. PT HAS DRAIN IN GALLBLADDER, PLACED 6 WEEKS AGO HERE. STATES THE SIGHT OF THE DRAIN IS GETTING MORE PAINFUL X THE LAST WEEK. AFEBRILE. Triage Nurses Notes Reviewed? yes ? N Is pt currently ? No HPI: Patient presents for evaluation of intermittent severe pain in the area of a gallbladder drain. Patient states she had a drain placed into the gallbladder about 6 weeks ago. Over the past 4-5 days, she has had an increasing pain in the area of the gallbladder drain with some redness and mild soft tissue swelling. There is been a slight crusting drainage coming from the area. Patient states that she has also had just a small amount of drainage from the drainage tube. She denies any associated fever or cold symptoms. The pain is nonexistent when at rest but becomes severe when attempting to ambulate. Past History Travel History Traveled to [place] past 21 day No Medical History Any Pertinent Medical History? 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 Hx Contributory? No Review of Systems Review of Systems Constitutional: Reports: no symptoms. EENTM: Reports: no symptoms. Respiratory: Reports: no symptoms. Cardiovascular: Reports: no symptoms. GI: Reports: see HPI. Genitourinary: Reports: no symptoms. Musculoskeletal: Reports: no symptoms. Skin: Reports: see HPI. Neurological/Psychological: Reports: no symptoms. Hematologic/Endocrine: Reports: no symptoms. Immunologic/Allergic: Reports: no symptoms. All Other Systems: Reviewed and Negative Physical Exam Physical Exam Gastrointestinal: SEE BELOW Comments: Gen.: Well-nourished, well-developed, no acute respiratory distress. Head: Normocephalic, atraumatic. Eyes: Normal inspection bilaterally Ears: Normal inspection bilaterally Nose: Normal inspection Throat/mouth : Moist mucosa Neck: Supple, full range of motion, no goiter Heart: Regular rate and rhythm, no murmurs rubs or gallops Lungs: Clear to auscultation bilaterally with normal air entry Chest: Nontender Back: Normal range of motion Abdomen: Soft, nontender, nondistended, normal bowel sounds, cholecystostomy tube present with mild yellow crusting of the ostomy. There is mild surrounding soft tissue swelling and erythema. The area is also mildly to moderately tender. Extremities: Normal range of motion grossly, equal radial pulses, no cyanosis clubbing or edema Neurologic: Cranial nerves grossly intact, speech is clear Skin: warm and dry Psychiatric: Calm, cooperative, no apparent delusions or hallucinations Core Measures ACS in differential dx? No Severe Sepsis Present: No Septic Shock Present: No Progress Differential Diagnosis: CELLULITIS, ABSCESS, BILIARY OBSTRUCTION, CHOLECYSTITIS Plan of Care: Orders Procedure Date/time Status LIPASE 02/22 153 Complete HUMAN BETA HCG SCREEN 02/22 1531 Complete COMPREHENSIVE METABOLIC PANEL 02/22 153 Complete CBC WITHOUT DIFFERENTIAL 02/22 153 Complete Current Medications Sig/Mariano Start time Last Medication Dose Stop Time Status Admin Acetaminophen/ 1 TAB ONCE ONE 02/22 1815 UNVr Hydrocodone Bitart 02/23 1816 (Vicodin) Laboratory Tests 02/22/17 1540: Anion Gap 13, Estimated GFR > 60, BUN/Creatinine Ratio 14.3, Glucose 99, Calcium 9.4, Total Bilirubin 0.4, AST 15, ALT 18, Alkaline Phosphatase 39, Total Protein 7.4, Albumin 4.2, Globulin 3.2, Albumin/Globulin Ratio 1.3, Lipase 78, Total Beta HCG NEGATIVE, CBC w Diff NO MAN DIFF REQ, RBC 3.71 L, MCV 97.4, MCH 31.4 H, RDW 15.4 H, MPV 7.5, Gran % 37.9 L, Lymphocytes % 51.6 H, Monocytes % 9.7 H, Eosinophils % 0.3, Basophils % 0.5, Absolute Granulocytes 2.3, Absolute Lymphocytes 3.2, Absolute Monocytes 0.6, Absolute Eosinophils 0, Absolute Basophils 0, PUBS MCHC 32.3 L Diagnostic Imaging: Discussed w/RAD: CT Scan. Radiology Impression: PATIENT: MAYRA PRADHAN PRESENT AGE: 51 PATIENT ACCOUNT NO: [id number] : 63 LOCATION: [facility] ORDERING PHYSICIAN: PIPO PAGAN MD SERVICE DATE: 02/22/17 EXAM TYPE: CAT - CT ABD & PELVIS W IV CONTRAST EXAMINATION: CT ABDOMEN AND PELVIS WITH CONTRAST CLINICAL INFORMATION: Right-sided abdominal pain with cholecystostomy tube. COMPARISON: CT from 01/11/2017. TECHNIQUE: Multidetector volumetric imaging was performed of the abdomen and pelvis before and after the IV administration of 95 mL of Optiray 320 intravenous contrast. Sagittal and coronal reformatted images were obtained on the technologist's workstation. DLP: 269 mGy-cm FINDINGS: LUNG BASES: The visualized lung bases are unremarkable. LIVER, GALLBLADDER, AND BILIARY TREE: The liver is normal in size, shape, and attenuation. No focal hepatic lesion or biliary ductal dilatation is present. The cholecystostomy tube is in place. The pigtail portion of the tube appears positioned within the gallbladder. The gallbladder is mostly decompressed. Multiple gallstones are present. There is decreased adjacent inflammatory change from the prior CT. No adjacent abscess formation. No free air. PANCREAS: Unremarkable. SPLEEN: Unremarkable. ADRENAL GLANDS: Unremarkable. KIDNEYS AND URETERS: The kidneys are normal in size, shape, and attenuation. No hydronephrosis, hydroureter, or calculi seen. No perinephric stranding. BLADDER: Unremarkable. GASTROINTESTINAL TRACT: The stomach and small bowel appear unremarkable. No dilated loops of bowel or evidence of obstruction. Normal appendix. No colonic wall thickening or inflammatory change. Scattered diverticulosis without diverticulitis. ABDOMINAL WALL: No hernia seen. The cholecystostomy tube exits the right midabdomen. There is associated focal skin thickening at the exit site which may represent focal cellulitis. No associated fluid collection. LYMPH NODES: Normal. VASCULAR: Unremarkable. PELVIC VISCERA: The uterus and adnexa are unremarkable. OSSEOUS STRUCTURES: No acute or suspicious osseous abnormality. Degenerative changes of the spine. Vacuum disc phenomenon at L5-S1. IMPRESSION: Cholecystostomy tube is in expected position. Decompression of the gallbladder with gallstones noted. Focal skin thickening at the exit site of the tube could be associated with cellulitis. No abscess formation. DICTATED BY: MATTI CAPPS MD DATE/TIME DICTATED:02/22/171711 APPLICATION SPECIALIST:ANILA DATE/TIME TRANSCRIBED:1711 CONFIDENTIAL, DO NOT COPY WITHOUT APPROPRIATE AUTHORIZATION. < Electronically signed in Other Vendor System> SIGNED BY: MATTI CAPPS MD 02/22/17 172 Initial ED EKG: none Comments: 02/22/2017 6:07:25 PM I have updated and on her test results. She'll be medicated with clindamycin and with Vicodin in the emergency department and given prescriptions as an outpatient. I've asked that she follow up with her surgeon within the next 24-48 hours. Departure Departure Disposition: HOME OR SELF CARE Condition: Stable Clinical Impression Primary Impression: Cellulitis Qualifiers: Site of cellulitis: trunk Site of cellulitis of trunk: abdominal wall Qualified Code: L03.311 - Cellulitis of abdominal wall Referrals: FELICIA KAPLAN,JANKI Morrow (PCP/Family) Additional Instructions: Follow-up with your surgeon for reevaluation tomorrow. Clindamycin as prescribed. Return if any Concerns or sudden worsening. Please note that there might be incidental findings in your evaluation that are unrelated to the current emergency department visit. Please notify your primary care doctor about this emergency department visit in order to obtain and review all of the testing performed so that these incidental findings can be monitored as needed. If you had an x-ray performed, please understand that some fractures may not be seen on the initial set of x-rays. If your symptoms persist you might need a repeat set of x-rays to check for such a fracture. If you had a laceration evaluated, please understand that foreign bodies such as glass or wood may not be visible to the naked eye or on plain x-rays. If the wound becomes red, swollen, increasingly more painful or if there is any drainage from the wound, please have it reevaluated by a physician for the possibility of a retained foreign body. Thank you for choosing the [facility] Emergency Department for your care. It was a pleasure to serve you today. Pipo Pagan M.D. [facility] Departure Forms: Customer Survey General Discharge Information Prescriptions: Current Visit Scripts Clindamycin HCl (Cleocin HCl) 1 CAP PO Q6 #28 CAP Hydrocodone/Acetaminophen (Bath 5-325 Tablet) 1-2 TAB PO Q4-6 PRN PRN PAIN #20 TAB
[2017-02-22] MEDS ORDERED: VITAMIN D2000 UNI1 PO (15:34)
[2017-02-22 16:15] LABS: ABSOLUTE BASOPHIL COUNT 0 /CUMM (0.0-0.2); ABSOLUTE EOSINOPHIL COUNT 0 /CUMM (0.0-0.7); ABSOLUTE GRANULOCYTE CT 2.3 /CUMM (1.4-6.5); ABSOLUTE LYMPH COUNT 3.2 /CUMM (1.2-3.4); ABSOLUTE MONOCYTE COUNT 0.6 /CUMM (0.10-0.60); BASOPHIL % 0.5 % (0.0-2.0); EOSINOPHIL % 0.3 % (0-5); HEMATOCRIT 36.1 % (37-47); MEAN CORPUSCULAR HGB 31.4 PG (27.0-31.0); MEAN CORPUSCULAR HGB CONC 32.3 G/DL (33.0-37.0); MEAN CORPUSCULAR VOLUME 97.4 FL (81.0-99.0); MEAN PLATELET VOLUME 7.5 FL (7.4-10.4); PLATELET COUNT 269 /CUMM (130-400); RBC DISTRIBUTION WIDTH 15.4 % (11.5-14.5); RED BLOOD CELL CT 3.71 /CUMM (4.20-5.40); WHITE BLOOD CELL COUNT 6.2 /CUMM (4.8-10.8)
[2017-02-22 16:27] LABS: GRANULOCYTE % 37.9 % (42.2-75.2)
--- NOTE | 2017-02-22 17:21 | CT SCAN REPORT ---
EXAMINATION: CT ABDOMEN AND PELVIS WITH CONTRAST CLINICAL INFORMATION: Right-sided abdominal pain with cholecystostomy tube. COMPARISON: CT from 01/11/2017. TECHNIQUE: Multidetector volumetric imaging was performed of the abdomen and pelvis before and after the IV administration of 95 mL of Optiray 320 intravenous contrast. Sagittal and coronal reformatted images were obtained on the technologist's workstation. DLP: 269 mGy-cm FINDINGS: LUNG BASES: The visualized lung bases are unremarkable. LIVER, GALLBLADDER, AND BILIARY TREE: The liver is normal in size, shape, and attenuation. No focal hepatic lesion or biliary ductal dilatation is present. The cholecystostomy tube is in place. The pigtail portion of the tube appears positioned within the gallbladder. The gallbladder is mostly decompressed. Multiple gallstones are present. There is decreased adjacent inflammatory change from the prior CT. No adjacent abscess formation. No free air. PANCREAS: Unremarkable. SPLEEN: Unremarkable. ADRENAL GLANDS: Unremarkable. KIDNEYS AND URETERS: The kidneys are normal in size, shape, and attenuation. No hydronephrosis, hydroureter, or calculi seen. No perinephric stranding. BLADDER: Unremarkable. GASTROINTESTINAL TRACT: The stomach and small bowel appear unremarkable. No dilated loops of bowel or evidence of obstruction. Normal appendix. No colonic wall thickening or inflammatory change. Scattered diverticulosis without diverticulitis. ABDOMINAL WALL: No hernia seen. The cholecystostomy tube exits the right midabdomen. There is associated focal skin thickening at the exit site which may represent focal cellulitis. No associated fluid collection. LYMPH NODES: Normal. VASCULAR: Unremarkable. PELVIC VISCERA: The uterus and adnexa are unremarkable. OSSEOUS STRUCTURES: No acute or suspicious osseous abnormality. Degenerative changes of the spine. Vacuum disc phenomenon at L5-S1. IMPRESSION: Cholecystostomy tube is in expected position. Decompression of the gallbladder with gallstones noted. Focal skin thickening at the exit site of the tube could be associated with cellulitis. No abscess formation.
[2017-02-22 17:35] VITALS: BP 114/59
[2017-02-22] MEDS ORDERED: CLEOCIN HCL300 M1 PO (18:09)
[2017-02-22] MEDS ORDERED: NORCO 5-325 TA1 EACH PO (18:09)
[2017-04-15] MEDS ORDERED: TEGRETOL XR200 M1 PO (10:58)
== END 2017-02-22 18:50 ==
LOC: ERH 14:00
PROVIDERS: Emergency Medicine
DX: L03.311 Cellulitis of abdominal wall (principal)
CPT/HCPCS: 74177

== ENCOUNTER 2017-04-21 02:50 | Observation (INO) | payer OTHER ==
[~2017-04-21] VITALS: Ht 172.7 cm; Wt 62.6 kg
[~2017-04-21 02:50] MED LIST changes: +CLEOCIN HCL300 M1 PO; +NORCO 5-325 TA1 EACH PO; +VITAMIN D2000 UNI1 PO
--- NOTE | 2017-04-21 12:22 | Operative Report ---
Operative/Inv Procedure Report Surgery Date: 04/21/17 Name of Procedure: Laparoscopic Cholecystectomy Pre-Operative Diagnosis: Cholelithiasis/Chronic Cholecystitis with obstruction Post-Operative Diagnosis: Same Estimated Blood Loss: 50ml to 100ml Surgeon/Childbirth And Infant Care Teacher: JA PATEL DO Anesthesia: general endotracheal tube IV Fluids: 1100 cc Drains: 10 Fr RUQ PHILIPP Drain Specimens: Gallbladder/large stones Complications: None Condition: Stable Operative Indication: This is a 51-year-old female who approximately 2 months ago was seen in the hospital with severe acute cholecystitis of unknown duration. At that point given the degree of inflammation a decision was made to proceed with a cholecystostomy drain with an interval cholecystectomy at a later date. Patient recovered well with a drain was discharged home. Patient underwent a tube study which revealed obstruction at the cystic duct. A laparoscopic cholecystectomy was discussed in detail with the patient. All risks including but not limited to bleeding, infection, bile leak, and injury to surrounding duct/bowel were discussed in detail. I also expect to the patient that given the severity of prior inflammation and the need for cholecystostomy tube the risks are slightly higher in her case. The patient understood everything and decided to proceed. Operative/Procedure Note Note: The patient was brought to the operating room and placed on the operating room table in supine position. Venodyne stockings were placed and adequate general endotracheal anesthesia was obtained. Patient's cholecystostomy tube was removed prior to prepping with no complications. The patient was prepped and draped in standard surgical fashion. We began the procedure by making a 2 cm transverse incision in the infraumbilical crease. The incision was carried down to the fascia, once the fascia was clearly visualized it was picked up between 2 libia clamps. The fascia was divided in the midline and once we entered the peritoneum 2 stay 0 Vicryl sutures were placed on each side. A 12 mm blunt port was inserted and the abdominal cavity was insufflated to 15 mmHg. A 10 mm 30 laparoscope was introduced and upon initial examination no obvious gross pathology was seen. We did note adhesions at the live edge of where the gallbladder fossa should be. Accessory trochars were placed, all 5 mm, one in the epigastrium and 2 in the right upper quadrant (one in the midclavicular line and one in the anterior axillary line, both 2 fingerbreadths below the costal margin). Omental adhesions to the liver edge were taken down using hook electrocautery maintaining hemostasis. Blunt dissection was also used for adhesiolysis. The fundus of the gallbladder was identified, the gallbladder appeared thick and necrotic. It was difficult to grab the gallbladder fundus due to contracted nature of the gallbladder and large gallstones occupying most of the lumen of the gallbladder. Adhesions were then taken down bluntly and using hook electrocautery until what appeared to be the infundibulum was identified. Dense adhesions and inflammation was noted around the area of probable triangle of calot. A decision was then made to not attempt to dissect out the triangle due to the increased risk of injury to vital structures. So at around the level of the infundibulum the gallbladder was incised and a large stone was removed. We were then able to grasp some the gallbladder and retract up over the liver. We then began to transect the gallbladder at the level of the infundibulum which was away from all vital structures. Once the gallbladder was completely transected the gallbladder along with all the big stones were dissected off the liver bed using hook electrocautery maintaining hemostasis. Of note the gallbladder wall was necrotic and falling apart in our graspers, however most of the gallbladder was removed successfully. At that point we switched to a 5 mm laparoscope and a 10 mm Endobag was introduced through the umbilical trocar site. The gallbladder and 4 large gallstones were placed in the bag and removed through the umbilical trocar site. The abdomen was reinsufflated. We switched back to a 10 mm laparoscope and examined our area of dissection. We then identified the open stump of the gallbladder infundibulum and that was closed using 2-0 Vicryl suture in a running fashion. At the completion we examined the area no obvious bile leak or bleeding was noted. Once again we checked to make sure we are away from any vital structures. The right upper quadrant was irrigated until clear. A 10 Japanese PHILIPP drain was placed through the most lateral incision into the gallbladder fossa. All ports were removed under direct visualization, no obvious bleeding was noted. The umbilical trocar site was closed using 0 Vicryl suture. The skin was closed using 4-0 Monocryl. Steri-Strips and dressings were placed. The patient was successfully extubated and transferred to the recovery room in stable condition. The patient tolerated the procedure well with no complications. Findings: Necrotic gallbladder wall, 4 large gallstones, dense adhesions/chronic inflammation CC: FELICIA KAPLAN,JANKI Morrow
--- NOTE | 2017-04-21 12:31 | Admission Core Measures ---
Acute Coronary Syndrome Inclusion Criteria ACS Diagnosis No Inpatient Core Measures LDL Reminder: If No, please order W/I first 24hr of stay Congestive Heart Failure Inclusion Criteria CHF Diagnosis No Cerebrovascular accident Inclusion Criteria CVA/TIA Diagnosis No Inpatient Core Measures Bedside Swallow Eval Reminder: If BSE failed, place ST order Antithrombotic Reminder: Order Antithrombotic Medication by end of day 2 Antithrombotic Reminder: Document Reason Antithrombotic Not ordered by end of day 2 AFIB/Flutter Reminder: If Present, add to problem list AFIB/Flutter Reminder: Order Anticoag Medication for pts with AFIB/Flutter Atherosclerosis Reminder: If Present, add to problem list LDL Reminder: If No, please order W/I first 24hr of stay PT Order Reminder: If No, please order Venous thromboembolism Inpatient Core Measures VTE Risk Factors: Age > 40, [facility] prophylaxis d/t No contraindications No VTE Pharm Prophylaxis d/t No contraindications Inclusion Criteria - Per Current guidelines, there needs to be overlap - treatment for the first 5 days of Warfarin therapy. - Parenteral Anticoagulation (IV or SC) needs to be - given along with Warfarin therapy. VTE Diagnosis No VTE Type NONE VTE Confirmed by (Test) NONE Problem List As ranked by this Provider includes Assessment & Plan 1. Status post cholecystectomy 2. Gallbladder gangrene 3. Seizure disorder HOME MEDS Home Med List Carbamazepine (Tegretol XR) 200 MG TAB.ER.12H 2 TAB PO BID SEIZURE DISORDER ( Reported) Divalproex Sodium (Depakote ER) 250 MG TAB.ER.24H 1 TAB PO 1000 Seizures Divalproex Sodium 500 MG TABLET.DR 1 TAB PO 2200 Seizure [Progesterone] 0.25 TAB PO TID SEIZURES (Reported)
--- NOTE | 2017-04-21 13:03 | Patient Discharge Instructions ---
Discharge Instructions General Discharge Information You were seen/treated for: Cholelithiasis/Chronic Cholecystitis with obstruction You had these procedures: Surgery Date: 04/21/17 Name of Procedure: Laparoscopic Cholecystectomy, PHILIPP drain Watch for these problems: fever>101.3, increased pain, redness/swelling/drainage, dramatic change in PHILIPP drain color / volume No bath, but you may shower: Yes Other wound care: PHILIPP drain care, keep clean and dry, monitor output. Special Instructions: Follow up with Dr. Maki in 4 days, Wednesday April 26, 2017. Please call his office to arrange this appointment. You are being discharged with a drain. Please empty and document the output of the drainage every day so that you can report it to Dr. Maki. Remain on low fat diet. You will be on antibiotics for one week following surgery. Diet Continue normal diet: Yes Recommended Diet: Low Fat Activity Full Activity/No Limits: No Activity Self Limited: Yes Pounds, do NOT lift more than: 10 Other activity limits: no heavy lifting. no strenuous activity Acute Coronary Syndrome Inclusion Criteria At DC or during hospital stay patient has or had the following: ACS DIAGNOSIS No Discharge Core Measures Meds if any: Prescribed or Continued at Discharge Meds if any: NOT Prescribed or Continued at Discharge Congestive Heart Failure Inclusion Criteria At DC or during hospital stay patient has or had the following: CHF DIAGNOSIS No Discharge Core Measures Meds if any: Prescribed or Continued at Discharge Meds if any: NOT Prescribed or Continued at Discharge Cerebrovascular accident Inclusion Criteria At DC or during hospital stay patient has or had the following: CVA/TIA Diagnosis No Discharge Core Measures Meds if any: Prescribed or Continued at Discharge Meds if any: NOT Prescribed or Continued at Discharge Venous thromboembolism Inclusion Criteria VTE Diagnosis No VTE Type NONE VTE Confirmed by (Test) NONE Discharge Core Measures - Per Current guidelines, there needs to be overlap - treatment for the first 5 days of Warfarin therapy. - If discharged on Warfarin prior to 5 days of - overlap therapy, the patient will need to be - assessed for post discharge needs including - *Post discharge parental anticoagulation - *Warfarin and/or parental anticoagulation education - *Follow up date to check INR post discharge At least 5 days overlap therapy as Inpatient No Meds if any: Prescribed or Continued at Discharge Note: Overlap Therapy is Warfarin and Anticoagulant Meds if any: NOT Prescribed or Continued at Discharge
[2017-04-21] MEDS ORDERED: CIPRO500 M1 PO (13:07)
[2017-04-21] MEDS ORDERED: FLAGYL500 MG PO (13:07)
[2017-04-21] MEDS ORDERED: COLACE100 M1 PO (13:07)
[2017-04-21] MEDS ORDERED: PERCOCET 5-3251 EACH PO (13:07)
--- NOTE | 2017-04-21 13:12 | Surg Short-stay <48hrs Dis Sum ---
Visit Information Visit Dates Admission Date: 04/21/17 Discharge Date: 04/22/17 Surgical Short Stay DC Summary Admission Diagnosis: Cholelithiasis/Chronic Cholecystitis with obstruction Final Diagnosis: same, s/p Laparoscopic Cholecystectomy Procedure(s): Surgery Date: 04/21/17 Name of Procedure: Laparoscopic Cholecystectomy Summary/Significant Findings: Electively scheduled laparoscopic cholecystectomy turned observation due to gangrenous gallbladder, requiring a PHILIPP drain and one week of antibiotics. She remained on iv cipro/flagyl while inpatient, and was given prescriptions to continue these orally at home. PHILIPP drain teaching done. Routine labs checked post -op day #1, including liver function tests. Condition at Discharge: stable Discharge Disposition: home or self care Discharge instructions provided to patient/family: Yes Post discharge follow-up plan: prescriptions given for cipro / flagyl PHILIPP drain care teaching done follow up with next week for drain removal
[2017-04-21 14:38] VITALS: BP 104/62
--- NOTE | 2017-04-21 16:07 | NUR ---
PATIENT CAME UP FROM PACU AROUND 1330. PATIENT A/OX3. SISTER AT THE [facility]. PATIENT MEDICATED WITH MORPHINE 4MG FOR PAIN LEVE OF 7. REASSESSMENT PAIN LEVEL AT A 2. OFFERS NO OTHER COMPLAINTS. SURGIAL SITE INTACT, PHILIPP DRAINING WELL. REPORT GIVEN TO LILLY/CHRISTINE.
[2017-04-21 16:11] VITALS: BP 120/60
--- NOTE | 2017-04-21 17:41 | PN- General Surgery ---
Subjective Subjective: Patient recieved on general surgical floor following laparoscopic cholecystectomy. Procedure tolerated. Is tolerating diet. Denies chest pain, shortness of breath and difficulty breathing. Denies nausea and vomitting. Has yet to ambulate. Objective Vital Signs and I&Os Vital Signs Date Time Temp Pulse Resp B/P B/P Pulse O2 O2 Flow FiO2 Mean Ox Delivery Rate 04/21 1611 97.7 71 20 120/60 98 04/21 1438 97.6 76 18 104/62 98 Room Air Intake & Output 04/21 1600 04/21 0800 04/21 0000 04/20 1600 04/20 0800 04/20 0000 Intake Total Output Total Balance Patient 138 lb Weight Physical Exam: General: Alert and oriented x3, no acute distress Cardiac: rrr, s1s2 Pulm: CTA bilaterally Abd: Non-distended, dressings cdi, drain with heme and billious content Extremities: Moves all extremities, distal sensation intact, skin warm and dry. Calves soft bilaterally. Assessment/Plan Assessment/Plan This is a 51 year old female, POD 0.s/p lap richie -GI consult tomorrow ? ERCP. NPO after midnight -continue cipro/flagyl for abx ppx -home meds: Pt takes 0.25 lozenge of progesterone bid, not tid as she is tapering, continue this -OOB -Tylenol, percocet, morphine for pain -Will d/w Dr. Maki Core Measures/Miscellaneous Venous Thromboembolism VTE Risk Factors: Age > 40, Surgery VTE Contraindications: No Contraindications VTE Diagnosis: No VTE Type: NONE VTE Confirmed by (Test): NONE Beta Nancy Is Beta Nancy a Home Med? No Antibiotics Is Patient on Antibiotics? Yes If Yes: prophylaxis
[2017-04-21 17:54] VITALS: BP 118/66
[2017-04-21 20:15] VITALS: BP 118/60
[2017-04-21 23:52] VITALS: BP 110/66
[2017-04-22 04:00] VITALS: BP 106/60
--- NOTE | 2017-04-22 07:54 | PN- General Surgery ---
See Addendum Subjective Subjective: No acute overnight events reported. Pain controlled well. Voided frequently. Denies nausea and vomitting. Denies chest pain, shortness of breath and difficulty breathing. Has not passed flatus. Objective Vital Signs and I&Os Vital Signs Date Time Temp Pulse Resp B/P B/P Pulse O2 O2 Flow FiO2 Mean Ox Delivery Rate 04/22 0400 99.4 78 20 106/60 98 Room Air 04/21 2352 98.3 73 20 110/66 98 Room Air 04/21 2015 98.1 72 20 118/60 98 07 1912 Room Air 04/21 1754 97.9 66 20 118/66 96 /07 1611 97.7 71 20 120/60 98 04/21 1438 97.6 76 18 104/62 98 Room Air Intake & Output 04/22 0800 06/08 0000 07 1600 04/21 0800 / 0000 04/20 1600 Intake Total 250 1000 Output Total 320 800 Balance -70 200 Intake, IV 250 700 Intake, Oral 0 300 Number 0 Bowel Movements Output, 20 100 Drainage Output, Urine 300 700 Patient 138 lb Weight Physical Exam: General: Alert and oriented x3, no acute distress HEENT: Mucous membranes moist, no jaundice, sclera anicteric Cardiac: RRR, s1s2 Pulm: C T A bilaterally Abdomen: Rae-incisional tenderness, soft with minimal distension, dressings dry and intact. PHILIPP with billious drainage noted Extremities: Moves all extremities, neurovascular intact. Skin warm and dry. Calves soft and non-tender bilaterally. Assessment/Plan Assessment/Plan This is a 51 year old female, POD 1, s/p laparoscopic subtotal cholecystectomy. NPO after midnight, GI consult pending. Possible ERCP today pending GI recommendations. -Continue NPO until GI sees/makes recommendations, patient aware and in agreement -OOB as desired -IV fluids for maintenance until npo status changed -Continue abx -cipro/flagyl -Sub Q heparin for dvt ppx, ALPS -Continue home meds, discussed progesterone dosing with pharmacy and patient, .25 tab bid -Will d/w Dr. Maki Core Measures/Miscellaneous Venous Thromboembolism VTE Risk Factors: Age > 40, Surgery VTE Contraindications: No Contraindications VTE Diagnosis: No VTE Type: NONE VTE Confirmed by (Test): NONE Beta Nancy Is Beta Nancy a Home Med? No Antibiotics Is Patient on Antibiotics? Yes If Yes: prophylaxis
[2017-04-22 08:24] LABS: ABSOLUTE BASOPHIL COUNT 0 /CUMM (0.0-0.2); ABSOLUTE EOSINOPHIL COUNT 0 /CUMM (0.0-0.7); ABSOLUTE GRANULOCYTE CT 3.3 /CUMM (1.4-6.5); ABSOLUTE LYMPH COUNT 3.3 /CUMM (1.2-3.4); ABSOLUTE MONOCYTE COUNT 0.7 /CUMM (0.10-0.60); BASOPHIL % 0.3 % (0.0-2.0); EOSINOPHIL % 0.1 % (0-5); GRANULOCYTE % 44.7 % (42.2-75.2); HEMATOCRIT 31.7 % (37-47); MEAN CORPUSCULAR HGB 32.3 PG (27.0-31.0); MEAN CORPUSCULAR HGB CONC 33.4 G/DL (33.0-37.0); MEAN CORPUSCULAR VOLUME 96.9 FL (81.0-99.0); MEAN PLATELET VOLUME 8.2 FL (7.4-10.4); PLATELET COUNT 183 /CUMM (130-400); RBC DISTRIBUTION WIDTH 14.6 % (11.5-14.5); RED BLOOD CELL CT 3.27 /CUMM (4.20-5.40); WHITE BLOOD CELL COUNT 7.3 /CUMM (4.8-10.8)
== END 2017-04-22 14:15 ==
LOC: STS 02:50 → PACUH 11:55 → ENRESERV 12:45 → ENTRNSPT 13:53 → EDTRNSPT 13:59 → EDTRNSPTTYP 13:59 → EDTRNSPTSTS 14:00 → 2NA 14:09 → CMPTRNSPT 14:19 → ENPENDDIS 04-22 11:54 → 2NA 04-22 14:15
PROVIDERS: Physician Assistant; ADMIT Surgery
DX: K80.13 Calculus of gallbladder with acute and chronic cholecystitis with obstruction (principal)
CPT/HCPCS: 1255; 6030; 36415; 82436; 88304; 96372; 96374; G0378; J0744; J1644; J2405; J7042; J7060